=== PATIENT | male | born 1975 | race Caucasian/White ===

== ENCOUNTER → 2021-05-23 10:40 | Outpatient (CLI) | payer OTHER, MEDICAID, SELFPAY ==
--- NOTE | 2021-05-23 10:41 | DI.US.S_ITS ---
PROCEDURE: US PERIPH VENOUS LOW EXTREM RT INDICATIONS: SWELLING X 6 MONTHS TECHNIQUE: Real-time imaging, as well as color and pulse Doppler interrogation, were performed of the lower extremity deep veins from the inguinal ligament to the popliteal fossa. COMPARISON: None. FINDINGS: The common femoral, femoral and popliteal veins are normally compressible, and free of intraluminal thrombus. Color and pulse Doppler demonstrate normal phasic intraluminal flow. There is normal augmentation response to distal compression maneuver. At the area of clinical concern involving the gan and ankle, soft tissue edema can be seen. IMPRESSION: Negative for deep venous thrombosis. Soft tissue edema can be seen involving the area of concern involving the gan and ankle. Dictated by: Mohit Garcia M.D. on 05/23/2021 at 10:32 Approved by: Mohit Garcia M.D. on 05/23/2021 at 10:33
== END ==
PROVIDERS: PCP Family Medicine; Referring Provider Physician Assistant; Visit Provider Physician Assistant
DX: R22.41 Localized swelling, mass and lump, right lower limb (principal); M79.89 Other specified soft tissue disorders
CPT/HCPCS: 93971

== ENCOUNTER 2021-09-23 12:04 | Emergency (ER) | payer OTHER, MEDICAID, SELFPAY ==
[2021-09-23] VITALS (9 sets, daily range): BP systolic 145–179; BP diastolic 76–97; PULSE 73–82; RESP 16–25; TEMP 36.8; O2SAT 92–97; BMI 44.3
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
--- NOTE | 2021-09-23 12:24 | DI.RAD.S_ITS ---
PROCEDURE: XR CHEST 1V INDICATIONS: chest pain TECHNIQUE: One view of the chest was acquired. COMPARISON: [facility], CHEST 2 VIEW, 01/01/2012, 17:47. FINDINGS: Surgical changes and devices: None. Lungs and pleura: Lungs are clear. No pleural effusions or pneumothorax. Mediastinum: Mediastinal contours appear normal. Heart size is normal. Bones and chest wall: No suspicious bony lesions. Overlying soft tissues appear unremarkable. IMPRESSION: No acute cardiopulmonary abnormality. Dictated by: Judah Gordillo M.D. on 09/23/2021 at 12:19 Approved by: Judah Gordillo M.D. on 09/23/2021 at 12:20
[2021-09-23 12:31] LABS: Add Manual Diff / Slide Review NO; Basophils Absolute Auto 100 /uL (0-100); Basophils Percent Auto 0.6 % (0-2); Eosinophils Absolute Auto 300 /uL (0-450); Eosinophils Percent Auto 2.4 % (2-4); Hematocrit 44.8 % (41-53); Hemoglobin 15.4 g/dL (13.5-17.5); Lymphocytes Absolute Auto 3800 /uL (1100-4500); Lymphocytes Percent Auto 34.9 % (25-40); Mean Corpuscular HGB Conc 34.3 % (30-36); Mean Corpuscular Hemoglobin 27.8 PG (26-34); Mean Corpuscular Volume 81.1 fL (80-100); Monocytes Absolute Auto 700 /uL (0-900); Monocytes Percent Auto 6.3 % (3-14); Neutrophils Absolute Auto 6100 /uL (1500-7000); Neutrophils Percent Auto 55.8 % (50-75); Platelet Count 332 X10^3/uL (150-400); Red Blood Cell Count 5.53 X10^6/uL (4.5-5.9); Red Cell Distribution Width 13.6 % (11.6-14.8); White Blood Cell Count 10.9 X10^3/uL (4.5-11.0)
[2021-09-23 12:44] LABS: Alanine Aminotransferase 26 IU/L (<50); Albumin 4.7 g/dL (3.5-5.0); Albumin Globulin Ratio 1.2 (1.0-2.8); Alkaline Phosphatase 58 U/L (38-126); Aspartate Aminotransferase 25 IU/L (17-59); BUN Creatinine Ratio 20.5 (6-22); Bilirubin Total 0.4 mg/dL (0.2-1.3); Blood Urea Nitrogen 16 mg/dL (9-20); Carbon Dioxide 28 mmol/L (22-32); Chloride 103 mmol/L (98-107); Creatine Kinase 84 U/L (55-170); Estimated Glomerular Filt Rate > 60.0 mL/min (>60); Globulin 3.8 g/dL (1.7-4.1); Glucose 125 mg/dL (70-100); HEMOLYSIS < 15 (0-50); Lipase 73 U/L (23-300); Magnesium 2.1 mg/dL (1.6-2.3); Potassium 3.8 mmol/L (3.4-5.1); Sodium 140 mmol/L (137-145); Total Protein 8.5 g/dL (6.3-8.2)
[2021-09-23 12:54] LABS: Troponin I < 0.012 ng/mL (0.01-0.034)
--- NOTE | 2021-09-23 13:16 | DI.US.S_ITS ---
PROCEDURE: US [facility] VENOUS LOW EXTREM RT INDICATIONS: EDEMA TECHNIQUE: Real-time imaging, as well as color and pulse Doppler interrogation, were performed of the lower extremity deep veins from the inguinal ligament to the popliteal fossa. COMPARISON: [facility], [facility] VENOUS LOW EXTREM RT, 05/23/2021, 11:05. FINDINGS: The common femoral, femoral and popliteal veins are normally compressible, and free of intraluminal thrombus. Color and pulse Doppler demonstrate normal phasic intraluminal flow. There is normal augmentation response to distal compression maneuver. IMPRESSION: No right lower extremity DVT. Dictated by: Judah Gordillo M.D. on 09/23/2021 at 15:06 Approved by: Judah Gordillo M.D. on 09/23/2021 at 15:07
[2021-09-23 13:25] LABS: D Dimer < 200 ng/mL (<230)
--- NOTE | 2021-09-23 14:47 | ED.CHESTPAIN ---
HPI - Chest Pain <Kyle Jimenez PA-C - Last Filed: 09/23/21 19:45> General Chief Complaint: Chest Pain Stated Complaint: chest pain Time Seen by Provider: 09/23/21 12:24 Source: patient and EMS Mode of arrival: EMS Limitations: no limitations History of Present Illness HPI narrative: Patient is a 46-year-old male presenting to the emergency department today via ambulance for evaluation of right-sided chest pain. Patient states that his chest pain began today and notes that it seems to be slightly worse with exertion. He also notes that he is been experiencing right leg swelling for the past ?10 months? and his most recent ultrasound of the right lower extremity did not show signs of DVT. He states that his chest pain is occasionally sharp with a burning sensation. He also reports that he does not have regular medical follow-up and does not take any medications daily. He denies fever, chills, cough, shortness of breath, diaphoresis, abdominal pain, dysuria, hematuria, nausea, vomiting, diarrhea, constipation, jaw pain, pain in the upper extremities, chest pain radiating to the back, or any other concerning symptoms. No further concerns were voiced at this time. Related Data Home Medications Medication Instructions Recorded Confirmed No Known Home Medications 05/23/21 05/23/21 Allergies Allergy/AdvReac Type Severity Reaction Status Date / Time amoxicillin Allergy Severe Anaphylaxis Verified 05/23/21 07:13 azithromycin [AZITHROMYCIN] Allergy Severe SWELLING Unverified 05/23/21 07:13 OF THROAT morphine [MORPHINE] Allergy Mild UNKNOWN Unverified 05/23/21 07:13 Review of Systems <Kyle Jimenez PA-C - Last Filed: 09/23/21 19:45> Constitutional Constitutional: Denies chills, Denies fatigue, Denies fever(s), Denies frequent falls, Denies lethargy and Denies weakness Eyes Eyes: Denies loss of vision ENT Ears, Nose, Mouth, and Throat: Denies dizziness and Denies neck pain Cardiovascular Cardiovascular: Reports chest pain, Denies irregular heart rhythm, Denies lightheadedness, Denies palpitations, Denies dyspnea, Denies dyspnea on exertion and Denies orthopnea Respiratory Respiratory: Denies cough, Denies dyspnea, Denies dyspnea on exertion and Denies wheezing Gastrointestinal Gastrointestinal: Denies abdominal pain, Denies change in bowel habits, Denies diarrhea, Denies nausea and Denies vomiting Genitourinary Genitourinary: Denies hematuria, Denies flank pain, Denies urinary incontinence and Denies urinary urgency Musculoskeletal Musculoskeletal: Denies back pain, Denies muscle weakness, Denies neck pain, Denies numbness, Denies tingling and Reports other (Right lower extremity swelling) Integumentary/Breasts Skin/Breast: Denies pruritus, Denies erythema, Denies rash and Denies wounds Neurologic Neurologic: Denies behavioral changes, Denies confusion, Denies dizziness, Denies frequent falls, Denies loss of vision, Denies numbness, Denies tingling and Denies weakness Psychiatric Psychiatric: Denies behavioral changes and Denies confusion Endocrine Endocrine: Denies fatigue and Denies palpitations Allergic/Immunologic Allergic/Immunologic: Denies wheezing Patient History <Kyel Jimenez PA-C - Last Filed: 09/23/21 19:45> Medical History Hearing loss Right shoulder pain Family History Father No problems noted. Mother Cancer Sister Dystonia Mental health problem Social History Smoking Status: Former smoker Smoking Status: Former smoker alcohol intake frequency: 0-2 drinks per day Substance Use Type: marijuana Exam <Kyle Jimenez PA-C - Last Filed: 09/23/21 19:45> Narrative Exam Narrative: GENERAL: 46 year old patient appears stated age. Well-developed patient, in mild distress. Large body habitus. HEAD: Atraumatic. Normocephalic. EYES: Pupils equal round and reactive. Extraocular motions intact. No scleral icterus. No injection or drainage. ENT: Nose without bleeding, purulent drainage. Throat without erythema, tonsillar hypertrophy or exudate. Airway patent. NECK: Trachea midline. Non tender CARDIOVASCULAR: Regular rate and rhythm without murmurs, gallops, or rubs. RESPIRATORY: Clear to auscultation. Breath sounds equal bilaterally. No wheezes, rales, or rhonchi. GASTROINTESTINAL: Abdomen soft, non-tender, nondistended. EXTREMITIES: No edema or joint tenderness. BACK: Nontender without deformity or crepitance. No flank tenderness. NEURO: AOx3. SKIN: No rash or erythema of visible areas Initial Vital Signs Initial Vital Signs: Vital Signs Temperature 98.2 F 09/23/21 12:16 Pulse Rate 81 09/23/21 12:16 Respiratory Rate 18 09/23/21 12:16 Blood Pressure 179/80 H 09/23/21 12:16 Pulse Oximetry 92 09/23/21 12:16 Course <Kyle Jimenez PA-C - Last Filed: 09/23/21 19:45> Course Course Narrative: CBC, CMP, lipase, magnesium, troponin with repeat troponin, D-dimer, EKG, chest x-ray, right lower extremity ultrasound obtained. Patient's vital signs remained stable throughout his stay in the emergency department with his oxygen saturations staying above 93%. Orders Ordered: ED Orders 09/23/21 12:13 Complete Blood Count AUTO DIFF Stat Comprehensive Metabolic Panel Stat D Dimer Stat Lipase Stat Magnesium Stat Troponin & CK Cardiac Panel Stat 09/23/21 12:24 XR chest 1V Stat EKG-12 Lead Stat 09/23/21 13:16 US periph venous low extrem rt Stat 09/23/21 14:23 Trop I [Troponin I] Stat Vital Signs Vital signs: Vital Signs - 8 hr 09/23/21 12:16 09/23/21 13:43 09/23/21 13:44 Temperature 98.2 F Pulse Rate 81 77 76 Respiratory Rate 18 20 25 H Blood Pressure 179/80 H 151/97 H Pulse Oximetry 92 95 95 09/23/21 14:00 09/23/21 14:05 09/23/21 14:30 Temperature Pulse Rate 74 73 73 Respiratory Rate 16 21 21 Blood Pressure 145/76 H Pulse Oximetry 96 95 96 09/23/21 15:00 09/23/21 15:30 09/23/21 16:00 Temperature Pulse Rate 73 82 80 Respiratory Rate 23 16 17 Blood Pressure Pulse Oximetry 94 97 97 MDM - Chest Pain <Kyle Jimenez PA-C - Last Filed: 09/23/21 19:45> Lab Data Result diagrams: 09/23/21 12:13 09/23/21 12:13 Labs: Lab Results 09/23/21 09/23/21 09/23/21 Range/Units 12:13 12:13 12:13 WBC 10.9 (4.5-11.0) X10^3/uL RBC 5.53 (4.5-5.9) X10^6/uL Hgb 15.4 (13.5-17.5) g/dL Hct 44.8 (41-53) % MCV 81.1 (80-100) fL MCH 27.8 (26-34) PG MCHC 34.3 (30-36) % RDW 13.6 (11.6-14.8) % Plt Count 332 (150-400) X10^3/uL Neut % (Auto) 55.8 (50-75) % Lymph % (Auto) 34.9 (25-40) % [place] % (Auto) 6.3 (3-14) % Eos % (Auto) 2.4 (2-4) % Baso % (Auto) 0.6 (0-2) % Neut # (Auto) 6100 (7211-9757) /uL Lymph # (Auto) 3800 (1746-9630) /uL [place] # (Auto) 700 (0-900) /uL Eos # (Auto) 300 (0-450) /uL Baso # (Auto) 100 (0-100) /uL D-Dimer < 200 (<230) ng/mL Sodium 140 (137-145) mmol/L Potassium 3.8 (3.4-5.1) mmol/L Chloride 103 (98-107) mmol/L Carbon Dioxide 28 (22-32) mmol/L BUN 16 (9-20) mg/dL Creatinine 0.78 (0.66-1.25) mg/dL Estimated GFR > 60.0 (>60) mL/min BUN/Creatinine Ratio 20.5 (6-22) Glucose 125 H (70-100) mg/dL Calcium 9.0 (8.4-10.2) mg/dL Magnesium 2.1 (1.6-2.3) mg/dL Total Bilirubin 0.4 (0.2-1.3) mg/dL AST 25 (17-59) IU/L ALT 26 (<50) IU/L Alkaline Phosphatase 58 (38-126) U/L Total Creatine Kinase 84 (55-170) U/L CK-MB (CK-2) TNP CK-MB (CK-2) Rel Index TNP Troponin I < 0.012 (0.01-0.034) ng/mL Total Protein 8.5 H (6.3-8.2) g/dL Albumin 4.7 (3.5-5.0) g/dL Globulin 3.8 (1.7-4.1) g/dL Albumin/Globulin Ratio 1.2 (1.0-2.8) Lipase 73 (23-300) U/L / Range/Units 14:23 WBC (4.5-11.0) X10^3/uL RBC (4.5-5.9) X10^6/uL Hgb (13.5-17.5) g/dL Hct (41-53) % MCV (80-100) fL MCH (26-34) PG MCHC (30-36) % RDW (11.6-14.8) % Plt Count (150-400) X10^3/uL Neut % (Auto) (50-75) % Lymph % (Auto) (25-40) % [place] % (Auto) (3-14) % Eos % (Auto) (2-4) % Baso % (Auto) (0-2) % Neut # (Auto) (9066-0792) /uL Lymph # (Auto) (0779-3576) /uL [place] # (Auto) (0-900) /uL Eos # (Auto) (0-450) /uL Baso # (Auto) (0-100) /uL D-Dimer (<230) ng/mL Sodium (137-145) mmol/L Potassium (3.4-5.1) mmol/L Chloride (98-107) mmol/L Carbon Dioxide (22-32) mmol/L BUN (9-20) mg/dL Creatinine (0.66-1.25) mg/dL Estimated GFR (>60) mL/min BUN/Creatinine Ratio (6-22) Glucose (70-100) mg/dL Calcium (8.4-10.2) mg/dL Magnesium (1.6-2.3) mg/dL Total Bilirubin (0.2-1.3) mg/dL AST (17-59) IU/L ALT (<50) IU/L Alkaline Phosphatase (38-126) U/L Total Creatine Kinase (55-170) U/L CK-MB (CK-2) CK-MB (CK-2) Rel Index Troponin I < 0.012 (0.01-0.034) ng/mL Total Protein (6.3-8.2) g/dL Albumin (3.5-5.0) g/dL Globulin (1.7-4.1) g/dL Albumin/Globulin Ratio (1.0-2.8) Lipase (23-300) U/L Urine Dip Bedside Urine Glucose Negative Bedside Urine Bilirubin - Negative Bedside Urine Ketone - Negative Urine Specific [place] 1.015 Bedside Urine Occult Blood - Negative Bedside Urine pH 7 Bedside Urine Protein - Negative Bedside Urine Urobilinogen - Negative Bedside Urine Nitrite - Negative Bedside Urine Leukocytes - Negative Esterase Imaging Data US - DVT: Radiologist's Impression: PROCEDURE:? US PERIPH VENOUS LOW EXTREM RT ? INDICATIONS:? EDEMA ? TECHNIQUE:? Real-time imaging, as well as color and pulse Doppler interrogation, were performed of the lower extremity deep veins from the inguinal ligament to the popliteal fossa.? ? COMPARISON:? [facility], PERIP VENOUS LOW EXTREM RT, 05/23/2021, 11:05. ? FINDINGS:? The common femoral, femoral and popliteal veins are normally compressible, and free of intraluminal thrombus.? Color and pulse Doppler demonstrate normal phasic intraluminal flow.? There is normal augmentation response to distal compression maneuver. ? ? IMPRESSION:? No right lower extremity DVT. ? ? Dictated by: Judah Gordillo M.D. on 09/23/2021 at 15:06 ? ? Approved by: Judah Gordillo M.D. on 09/23/2021 at 15:07 ? Chest x-ray: Radiologist's Impression: PROCEDURE:? XR CHEST 1V ? INDICATIONS:? chest pain ? TECHNIQUE:? One view of the chest was acquired.? ? COMPARISON:? [facility], CHEST 2 VIEW, 01/01/2012, 17:47. ? FINDINGS:? ? Surgical changes and devices:? None.? ? Lungs and pleura:? Lungs are clear.? No pleural effusions or pneumothorax.? ? Mediastinum:? Mediastinal contours appear normal.? Heart size is normal.? ? Bones and chest wall:? No suspicious bony lesions.? Overlying soft tissues appear unremarkable.? ? IMPRESSION:? No acute cardiopulmonary abnormality. ? ? ? Dictated by: Judah Gordillo M.D. on 09/23/2021 at 12:19 ? ? Approved by: Judah Gordillo M.D. on 09/23/2021 at 12:20? MDM Narrative Medical decision making narrative: Differential diagnosis to consider but not limited to acute coronary syndrome versus myocardial infarction versus pulmonary embolism versus deep vein thrombosis versus musculoskeletal chest pain versus pneumonia. Discussed lab studies and imaging with patient informed him that no acute abnormality was identified today. Discussed that the likelihood of experiencing a heart attack with 2 normal troponins or a pulmonary embolism with a normal D-dimer was not high. I encouraged the patient to establish regular care with his primary care provider for further evaluation and management of his symptoms. He expresses understanding and agrees to plan. He states that this time that he is comfortable being discharged home and is stable for discharge. I discussed very strict return precautions with the patient prior to discharge. He states he will return to the emergency department if he feels that his symptoms return or worsen. Discharge Plan Departure Patient Disposition: Home Clinical Impression: Chest pain, Right leg swelling Activity Restrictions/Additional Instructions: *You have been diagnosed with chest pain, right leg swelling *What to do: *Please continue to take your regular medications as directed. [ ] New medication prescriptions sent to your pharmacy: [ ] [ ] New medication written as a paper prescription [X] No new medications given You were evaluated in the emergency department today for chest pain and right lower extremity swelling. Ultrasound imaging of the right lower extremity did not show signs of deep vein thrombosis (blood clot). Additionally, lab studies and chest x-ray imaging obtained in the emergency department today did not show signs of acute cardiopulmonary abnormality. I recommend that you follow-up with your primary care provider within the next 2-3 days for further evaluation. Please do not hesitate to return to the emergency department if you experience worsening chest pain, shortness of breath, unexplained sweating, chest pain radiating to the back, loss of consciousness, increased heart rate, or any other concerning symptoms. *Please follow up with your primary care provider in 2-3 days, call for an appointment. Let them know you were seen in the Emergency Department and that we ask that you be seen in follow up. We will electronically transmit a record of today's note if your PCP is in our system *If you do not have a primary care provider please contact the [facility] Resource line at [phone]. They will ask some questions about your medical history and help get you set up with a doctor in the community. *Return to Emergency Department if you should have any new, worsening or concerning symptoms, such as fever greater than 101 F, shaking chills, worsening pain, persistent vomiting or other bothersome symptoms. Prescriptions: No Action No Known Home Medications 0RF Referrals: Toni Masters DO [Primary Care Provider] -
[2021-09-23 14:51] LABS: Troponin I < 0.012 ng/mL (0.01-0.034)
== END 2021-09-23 16:38 | disposition home or self-care (01) ==
PROVIDERS: Emergency Medicine; Emergency Provider Physician Assistant; PCP Family Medicine
DX: R07.9 Chest pain, unspecified (principal); M79.89 Other specified soft tissue disorders
CPT/HCPCS: 71045; 80053; 81003; 82550; 83690; 83735; 84484; 85025; 85379; 93005; 93010; 93971; 99284

== ENCOUNTER 2022-03-11 08:15 | Outpatient (RCR) | payer OTHER, MEDICAID, SELFPAY ==
--- NOTE | 2021-12-20 16:00 | PT.OIE ---
Current Diagnoses Other chronic pain (12/20/21) Pain in right shoulder (12/20/21) Pain in right ankle and joints of right foot (12/20/21) Myalgia, other site (12/20/21) Past Medical History (Last Updated 10/16/21 @ 08:45 by Toni Masters DO) Chronic pain of right ankle Hearing loss Left buttock pain Right shoulder pain Visit Care Team Role Provider Type Toni Masters DO Attending Provider Physician Family Provider Primary Care Provider Referring Provider Specialty: [facility] Address: [address] [place] [address] Email: Physical Therapy Initial Evaluation PT-OP-A Visit Information Start: 12/19/21 16:19 Freq: Status: Active Protocol: Document 12/20/21 13:44 [facility]AK (Rec: 12/20/21 14:36 SAK [id number]) Out-Patient Physical Therapy Visit Information Visit Information Visit Type Initial Evaluation Visit Start Time 13:45 Visit Stop Time 14:40 Total Visit Minutes 55 Visit Number 08/06 Evaluation Information Evaluation Date 12/20/21 PT-OP-B Current Condition Start: 12/19/21 16:19 Freq: Status: Active Protocol: Document 12/20/21 13:44 SAK (Rec: 12/20/21 14:36 SAK [id number]) Current Condition History of Current Condition Onset Date 12 years ago shoulder Current Complaints right shoulder dysfunction, left hip pain History of Current Condition Thinks injured right shoulder while removing amina, jamming his shoulder. 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 If not doing anything really physical sometimes it feels and works fine. Patient is left handed. Was going to come for PT, then Covid happened. History of 3 ankle sprains with swelling right LE. 1 month ago reports onset of left hip pain, possibly due to compensation with his walking . Reports sharp, stabbing, and burning pain left hip/low back, feels like it is going to cut off his legs, almost causing him to fall. States he is heavier than he ever has been. Prior Treatments and Tests No x-ray or MRI yet Prior Functional Status Baseline Function- ADL's Independent Baseline Function- Mobility Independent Baseline Function- Gait no difficulty Baseline Function- Work/School no difficulty Current Functional Impairments (Reported) Functional Limitations- ADL's Hip pain interrupts sleep, pain with bending, lifting, walking, sharp stabbing pain with sit to stand, pain with standing and holding grandkids : fire down his thighs. If sleeps wrong on right UE can't use arm Functional Limitations- Mobility/Gait limps Functional Limitations- Recreation/ playing with grandkids painful Hobbies Personal Factors Other Personal Factors That May Effect obesity; patient is 11/19, 280 Therapy/Recovery lbs PT-OP-C Subjective Start: 12/19/21 16:19 Freq: Status: Active Protocol: Document 12/20/21 13:44 [facility] (Rec: 12/23/21 08:55 [facility] [id number]) Patient Questionnaires FAOS Foot and Ankle Survey FAOS Score 60% Lower Extremity Functional Scale LEFS Score 62 Quick Dash- Upper Extremity Quick Dash UE Score 20 OP-PT Pain Assessment Pain Assessment Grid Paper Pain Assessment Grid Completed Yes Location right shoulder, left SI and lateral hip Intensity 7 Description Burning,Sharp,Stabbing Frequency Frequent Radiating Location bilateral thighs Pain Aggravating Factors Changing Position,ADL's, Activity,Standing,Walking Pain Alleviating Factors Inactivity Pain Behaviors Pain Behaviors Facial Grimacing,Guarding, Restlessness,Wincing PT-OP-G Mobility & Gait Start: 12/19/21 16:19 Freq: Status: Active Protocol: Document 12/20/21 13:44 [facility] (Rec: 12/23/21 08:55 [facility] [id number]) OP Mobility Evaluation Transfers Sit to Stand painful Functional Movements Squats painful OP Gait Assessment Gait Gait Assistance Required: Independent Assistive Devices Assistive Device None Gait Deviations General Gait Pattern Wide Based Gait Factors Limiting Gait Function Factors Limiting Gait Function Decreased Strength,Pain Comments Gait Comments excess ER bilateral LE's left greater than right PT-OP-H Neuro Start: 12/19/21 16:19 Freq: Status: Active Protocol: Document 12/20/21 13:44 [facility] (Rec: 12/23/21 08:55 [facility] [id number]) Sensation Evaluation Gross Sensation Gross Sensation Right UE Impaired Sensation Description Paresthesia Comments Summary Comments Intact to LT bilateral UE's and LE's PT-OP-J Posture/Palpation/Skin Start: 12/19/21 16:19 Freq: Status: Active Protocol: Document 12/20/21 13:44 [facility] (Rec: 12/23/21 08:55 [facility] [id number]) Posture Evaluation Position Standing Head/C-Spine Posture Forward Head T-Spine Posture Increased Kyphosis L-Spine Posture Increased Lordosis Shoulder Posture (L) Rounded,(R) Rounded Scapula Posture (L) Protracted,(R) Protracted Arm Posture (L) Internally Rotated,(R) Internally Rotated Weight Distribution Weight Shifted Right Palpation Assessment Location left piriformis Palpation Findings Tenderness left greater trochanter Palpation Findings Tenderness left SI Palpation Findings Tenderness right shoulder Palpation Findings None/Normal PT-OP-K Range of Motion Start: 12/19/21 16:19 Freq: Status: Active Protocol: Document 12/20/21 13:44 [facility] (Rec: 12/23/21 08:55 [facility] [id number]) Cervical Spine Range of Motion Cervical Spine Active Comments WNL Lumbar Spine Range of Motion Lumbar Spine Active Flexion 25 Extension 15 Rotation Left 20 Rotation Right 20 Lateral Flexion Left 15 Lateral Flexion Right 15 ROM Limitations Pain Comments reported pain with all motions Shoulder Goniometric Range of Motion Shoulder Right Shoulder ROM WFL Yes Flexion 180 Extension 95 Abduction 180 External Rotation at 45 degrees 95 Abduction Internal Rotation Behind Back (text) T10 Left Shoulder ROM WFL Yes Flexion 180 Extension 40 Abduction 180 External Rotation at 90 degrees 85 Abduction Internal Rotation Behind Back (text) T10 Hip Goniometric Range of Motion Hip Left Flexion w/Knee Flexed 105 Straight Leg Raise 50 Extension 5 Abduction 25 Internal Rotation 10 External Rotation 30 Right Flexion w/Knee Flexed 100 Straight Leg Raise 65 Extension 5 Abduction 25 Internal Rotation 10 External Rotation 35 Hip ROM Limitations Hip ROM Limitations Soft Tissue Tightness,Pain PT-OP-M Strength Start: 12/19/21 16:19 Freq: Status: Active Protocol: Document 12/20/21 13:44 [facility] (Rec: 12/23/21 08:55 [facility] [id number]) Shoulder Strength Shoulder Manual Muscle Testing Right Flexion 4+ Good+ Extension 4+ Good+ Abduction (C5) 4+ Good+ External Rotation 4 Good Internal Rotation 4 Good Left Flexion 5 Normal Extension 4+ Good+ Abduction (C5) 5 Normal External Rotation 4+ Good+ Internal Rotation 4+ Good+ Hip Strength Hip Manual Muscle Testing Right Flexion (L2) 4 Good Extension (S1) 4 Good Abduction 4 Good External Rotation 4 Good Internal Rotation 4 Good Left Flexion (L2) 4- Good- Extension (S1) 4- Good- Abduction 4 Good External Rotation 4- Good- Internal Rotation 4- Good- Comments reported pain with all resisted motions Knee Strength Knee Manual Muscle Testing Right Flexion (S2) 5 Normal Extension (L3) 5 Normal Left Flexion (S2) 5 Normal Extension (L3) 5 Normal Ankle/Foot Strength Ankle and Foot Manual Muscle Testing Right Dorsiflexion (L4) 4+ Good+ Plantarflexion (S1) 4+ Good+ Left Dorsiflexion (L4) 5 Normal Plantarflexion (S1) 5 Normal PT-OP-Q Treatments Start: 12/19/21 16:19 Freq: Status: Active Protocol: Document 12/20/21 13:44 [facility] (Rec: 12/20/21 15:37 [facility] [id number]) Self-Care/Home Management Treatment Education Patient Education Home Exercise Program,Pain Management,Posture Other Education bed positioning; issued handout for supine and sidelying with pillow support after education. Patient advised not to sleep on his right side/arm. Consider use of body pillow. HEP: TrA, ball squeeze, gluteal set. PT-OP-R Modalities Start: 12/19/21 16:19 Freq: Status: Active Protocol: Document 12/20/21 13:44 [facility] (Rec: 12/20/21 15:37 [facility] [id number]) Hot Pack/Cold Pack Treatment Cold Pack Location lumbar spine and SI Patient Position Hooklying Treatment Duration (minutes) 10 Patient Tolerance Good Comments strap around distal thighs for LE support in neutral position PT-OP-T Assessment and Plan Start: 12/19/21 16:19 Freq: Status: Active Protocol: Document 12/20/21 13:44 [facility] (Rec: 12/23/21 08:55 [facility] [id number]) Physical Therapy Assessment Rehab Potential Rehabilitation Potential Good Evaluation Complexity Number of Personal Factors/Comorbidities 1-2 Number of Body Systems Impaired 3 Clinical Presentation at Evaluation Evolving Impairments Impairments Activity Tolerance,Strength Goals Four Impairment Quickdash UE disability index score 20% Skilled Nursing Goal (LTG) Improve Quickdash score to no greater than 5% as measure of improved UE function LTG Duration 03/23/22 Three Impairment lower extremity functional ( LEFS) scale 60% Skilled Nursing Goal (LTG) Improve LEFS score to at least 80% as measure of improved LE function LTG Duration 03/23/22 Two Impairment right shoulder dysfunction Impairment numbness and inability to use for prolonged period if sleeps on right side with pain as high as 7/10. Short Term Goal (STG) Patient to be able to modify his sleep patterns to not sleep on right side, and will be instructed in HEP for purposes of strengthening and stabilization. Skilled Nursing Goal (LTG) Patient to be independent with HEP for right shoulder strengthening and stabilization and report improved right shoulder function with minimal to no incidences of right shoulder pain and inability to use. LTG Duration 03/23/22 One Impairment pain lumbar spine left SI and hip as high as 7/10 Short Term Goal (STG) Decrease pain to no greater than 4/10 with 50% reduction in radicular symptoms STG Duration 01/25/22 Skilled Nursing Goal (LTG) Patient to report pain no greater than 2/10 with all usual activities including standing and holding his grandkids and moving from sit to stand LTG Duration 03/23/22 Assessment Summary Assessment Patient presents to PT with function-limiting pain in his low back, left hip and SI joint region with radicular symptoms which appear to be related to reported ankle sprains x 3 with compensatory movement patterns with weight gain and decreased activity level contributory. Signs and symptoms are consistent with SI joint involvement and patient has asymmetrical ROM and strength at his hips. Patient also c/o right shoulder dysfunction potentially due to injury sustained 12 years ago when removing shingles off a roof; major c/o is numbness and inability to use for prolonged periods if he sleeps on the right side. He has mild strength deficits in the right arm and excessive joint mobility. Objective evaluation was somewhat limited today due to extensive patient history and high level of irritability of left SI joint. Feel this patient will benefit from skilled physical therapy for shoulder strengthening and stabilization, flexibility and strength training and core stabilization with manual therapy and modalities as indicated for left hip dysfunction. Patient was advised not to sleep on his right side, and was instructed in a few simple isometric exercises for his hips and core. Physical Therapy Plan Frequency and Duration Frequency of Treatment 2x/Week Duration of Treatment 12 weeks Plan of Care Start Date 12/20/21 Plan of Care End Date 03/23/22 Therapeutic Interventions Therapeutic Interventions Aquatic Therapy,Gait Training, Home Exercise Program,Manual Therapy,Neuromuscular Re- education,Patient/Caregiver Education,Self-Care/Home Management,Soft Tissue Mobilization,Taping, Therapeutic Activities, Therapeutic Exercises Modalities Cold Pack/Ice Massage,Electric Stimulation,Hot Packs, Traction- Mechanical, Ultrasound Next Visit Focus/Plan Next Note Type Treatment Note Next Visit Plan Start with gentle Sci-Fit as tolerated , review TrA activation, ball squeeze, gluteal set. Add shoulder stabilization ex, possible pelvic realignment exercises. Evaluation of right ankle . Modalities and manual therapy as needed for pain
--- NOTE | 2021-12-20 16:00 | PT.OPPOC ---
Physical, Occupational & Speech Therapy At [facility] Current Diagnoses Other chronic pain (12/20/21) Pain in right shoulder (12/20/21) Pain in right ankle and joints of right foot (12/20/21) Myalgia, other site (12/20/21) Visit Care Team Role Provider Type Toni Masters DO Attending Provider Physician Family Provider Primary Care Provider Referring Provider Specialty: Family Practice Address: [address] [place] [address], [facility] Email: Plan Of Care PT-OP-T Assessment and Plan Start: 12/19/21 16:19 Freq: Status: Active Protocol: Document 12/20/21 13:44 [facility] (Rec: 12/23/21 08:55 [facility] [id number]) Physical Therapy Assessment Rehab Potential Rehabilitation Potential Good Evaluation Complexity Number of Personal Factors/Comorbidities 1-2 Number of Body Systems Impaired 3 Clinical Presentation at Evaluation Evolving Impairments Impairments Activity Tolerance,Strength Goals Four Impairment Quickdash UE disability index score 20% [employer]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 Short Term Goal (STG) Patient to be able to modify his sleep patterns to not sleep on right side, and will be instructed in HEP for purposes of strengthening and stabilization. Prison Goal (LTG) Patient to be independent with HEP for right shoulder strengthening and stabilization and report improved right shoulder function with minimal to no incidences of right shoulder pain and inability to use. LTG Duration 03/23/22 One Impairment pain lumbar spine left SI and hip as high as 7/10 Short Term Goal (STG) Decrease pain to no greater than 4/10 with 50% reduction in radicular symptoms STG Duration 01/25/22 Prison Goal (LTG) Patient to report pain no greater than 2/10 with all usual activities including standing and holding his grandkids and moving from sit to stand LTG Duration 03/23/22 Assessment Summary Assessment Patient presents to PT with function-limiting pain in his low back, left hip and SI joint region with radicular symptoms which appear to be related to reported ankle sprains x 3 with compensatory movement patterns with weight gain and decreased activity level contributory. Signs and symptoms are consistent with SI joint involvement and patient has asymmetrical ROM and strength at his hips. Patient also c/o right shoulder dysfunction potentially due to injury sustained 12 years ago when removing shingles off a roof; major c/o is numbness and inability to use for prolonged periods if he sleeps on the right side. He has mild strength deficits in the right arm and excessive joint mobility. Objective evaluation was somewhat limited today due to extensive patient history and high level of irritability of left SI joint. Feel this patient will benefit from skilled physical therapy for shoulder strengthening and stabilization, flexibility and strength training and core stabilization with manual therapy and modalities as indicated for left hip dysfunction. Patient was advised not to sleep on his right side, and was instructed in a few simple isometric exercises for his hips and core. Physical Therapy Plan Frequency and Duration Frequency of Treatment 2x/Week Duration of Treatment 12 weeks Plan of Care Start Date 12/20/21 Plan of Care End Date 03/23/22 Therapeutic Interventions Therapeutic Interventions Aquatic Therapy,Gait Training, Home Exercise Program,Manual Therapy,Neuromuscular Re- education,Patient/Caregiver Education,Self-Care/Home Management,Soft Tissue Mobilization,Taping, Therapeutic Activities, Therapeutic Exercises Modalities Cold Pack/Ice Massage,Electric Stimulation,Hot Packs, Traction- Mechanical, Ultrasound Next Visit Focus/Plan Next Note Type Treatment Note Next Visit Plan Start with gentle Sci-Fit as tolerated , review TrA activation, ball squeeze, gluteal set. Add shoulder stabilization ex, possible pelvic realignment exercises. Evaluation of right ankle . Modalities and manual therapy as needed for pain Plan of Care Dates Plan of Care Start Date 12/20/21 Plan of Care End Date 03/23/22 Electronically Signed by: Danii Eduardo, PT 12/23/21 0859 If you are in agreement with this Plan of Care, please return a signed and dated copy. I have reviewed this Plan of Care and certify that the skilled therapy services above are required to meet the patient?s needs. Physician Signature Date Printed Name and Credentials Clinical Instructor Signature Printed Name and Credentials
--- NOTE | 2021-12-25 10:04 | PT.OTN ---
Current Diagnoses Other chronic pain (12/25/21) Pain in right shoulder (12/25/21) Pain in right ankle and joints of right foot (12/25/21) Myalgia, other site (12/25/21) Physical Therapy Treatment Note PT-OP-A Visit Information Start: 12/19/21 16:19 Freq: Status: Active Protocol: Document 12/25/21 08:50 NBM (Rec: 12/25/21 10:04 NBM [id number]) Out-Patient Physical Therapy Visit Information Visit Information Visit Type Treatment Note Visit Start Time 08:57 Visit Stop Time 09:43 Total Visit Minutes 46 Visit Number 09/06 Number of DIETARY MANAGER Visits 1 PT-OP-B Current Condition Start: 12/19/21 16:19 Freq: Status: Active Protocol: Document 12/20/21 13:44 SAK (Rec: 12/20/21 14:36 SAK [id number]) Current Condition History of Current Condition Onset Date 12 years ago shoulder Current Complaints right shoulder dysfunction, left hip pain History of Current Condition Thinks injured right shoulder while removing amina, jamming his shoulder. 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 If not doing anything really physical sometimes it feels and works fine. Patient is left handed. Was going to come for PT, then Covid happened. History of 3 ankle sprains with swelling right LE. 1 month ago reports onset of left hip pain, possibly due to compensation with his walking . Reports sharp, stabbing, and burning pain left hip/low back, feels like it is going to cut off his legs, almost causing him to fall. States he is heavier than he ever has been. Prior Treatments and Tests No x-ray or MRI yet Prior Functional Status Baseline Function- ADL's Independent Baseline Function- Mobility Independent Baseline Function- Gait no difficulty Baseline Function- Work/School no difficulty Current Functional Impairments (Reported) Functional Limitations- ADL's Hip pain interrupts sleep, pain with bending, lifting, walking, sharp stabbing pain with sit to stand, pain with standing and holding grandkids : fire down his thighs. If sleeps wrong on right UE can't use arm Functional Limitations- Mobility/Gait limps Functional Limitations- Recreation/ playing with grandkids painful Hobbies Personal Factors Other Personal Factors That May Effect obesity; patient is [birth year]19, 89 Therapy/Recovery lbs PT-OP-C Subjective Start: 12/19/21 16:19 Freq: Status: Active Protocol: Document 12/25/21 08:50 NBM (Rec: 12/25/21 10:04 NBM [id number]) OP-PT Subjective Patient Comments Patient Comments Pt reports he feels better since his first PT appointment and has been compliant with his HEP. He feels a twinge today in his lower back and hip on the left side. He has been sleeping on his left focused on R shoulder back with pillows for side support and between his legs and thinks this has helped. PT-OP-G Mobility & Gait Start: 12/19/21 16:19 Freq: Status: Active Protocol: Document 12/20/21 13:44 SAK (Rec: 12/23/21 08:55 [facility] [id number]) OP Mobility Evaluation Transfers Sit to Stand painful Functional Movements Squats painful OP Gait Assessment Gait Gait Assistance Required: Independent Assistive Devices Assistive Device None Gait Deviations General Gait Pattern Wide Based Gait Factors Limiting Gait Function Factors Limiting Gait Function Decreased Strength,Pain Comments Gait Comments excess ER bilateral LE's left greater than right PT-OP-H Neuro Start: 12/19/21 16:19 Freq: Status: Active Protocol: Document 12/20/21 13:44 SAK (Rec: 12/23/21 08:55 [facility] [id number]) Sensation Evaluation Gross Sensation Gross Sensation Right UE Impaired Sensation Description Paresthesia Comments Summary Comments Intact to LT bilateral UE's and LE's PT-OP-J Posture/Palpation/Skin Start: 12/19/21 16:19 Freq: Status: Active Protocol: Document 12/20/21 13:44 SAK (Rec: 12/23/21 08:55 [facility] [id number]) Posture Evaluation Position Standing Head/C-Spine Posture Forward Head T-Spine Posture Increased Kyphosis L-Spine Posture Increased Lordosis Shoulder Posture (L) Rounded,(R) Rounded Scapula Posture (L) Protracted,(R) Protracted Arm Posture (L) Internally Rotated,(R) Internally Rotated Weight Distribution Weight Shifted Right Palpation Assessment Location left piriformis Palpation Findings Tenderness left greater trochanter Palpation Findings Tenderness left SI Palpation Findings Tenderness right shoulder Palpation Findings None/Normal PT-OP-K Range of Motion Start: 12/19/21 16:19 Freq: Status: Active Protocol: Document 12/20/21 13:44 [facility] (Rec: 12/23/21 08:55 [facility] [id number]) Cervical Spine Range of Motion Cervical Spine Active Comments WNL Lumbar Spine Range of Motion Lumbar Spine Active Flexion 25 Extension 15 Rotation Left 20 Rotation Right 20 Lateral Flexion Left 15 Lateral Flexion Right 15 ROM Limitations Pain Comments reported pain with all motions Shoulder Goniometric Range of Motion Shoulder Right Shoulder ROM WFL Yes Flexion 180 Extension 95 Abduction 180 External Rotation at 45 degrees 95 Abduction Internal Rotation Behind Back (text) T10 Left Shoulder ROM WFL Yes Flexion 180 Extension 40 Abduction 180 External Rotation at 90 degrees 85 Abduction Internal Rotation Behind Back (text) T10 Hip Goniometric Range of Motion Hip Left Flexion w/Knee Flexed 105 Straight Leg Raise 50 Extension 5 Abduction 25 Internal Rotation 10 External Rotation 30 Right Flexion w/Knee Flexed 100 Straight Leg Raise 65 Extension 5 Abduction 25 Internal Rotation 10 External Rotation 35 Hip ROM Limitations Hip ROM Limitations Soft Tissue Tightness,Pain PT-OP-M Strength Start: 12/19/21 16:19 Freq: Status: Active Protocol: Document 12/20/21 13:44 [facility] (Rec: 12/23/21 08:55 [facility] [id number]) Shoulder Strength Shoulder Manual Muscle Testing Right Flexion 4+ Good+ Extension 4+ Good+ Abduction (C5) 4+ Good+ External Rotation 4 Good Internal Rotation 4 Good Left Flexion 5 Normal Extension 4+ Good+ Abduction (C5) 5 Normal External Rotation 4+ Good+ Internal Rotation 4+ Good+ Hip Strength Hip Manual Muscle Testing Right Flexion (L2) 4 Good Extension (S1) 4 Good Abduction 4 Good External Rotation 4 Good Internal Rotation 4 Good Left Flexion (L2) 4- Good- Extension (S1) 4- Good- Abduction 4 Good External Rotation 4- Good- Internal Rotation 4- Good- Comments reported pain with all resisted motions Knee Strength Knee Manual Muscle Testing Right Flexion (S2) 5 Normal Extension (L3) 5 Normal Left Flexion (S2) 5 Normal Extension (L3) 5 Normal Ankle/Foot Strength Ankle and Foot Manual Muscle Testing Right Dorsiflexion (L4) 4+ Good+ Plantarflexion (S1) 4+ Good+ Left Dorsiflexion (L4) 5 Normal Plantarflexion (S1) 5 Normal PT-OP-Q Treatments Start: 12/19/21 16:19 Freq: Status: Active Protocol: Document 12/25/21 08:50 NBM (Rec: 12/25/21 10:04 NBM [id number]) Cardio Equipment Recumbent Stepper (Sci-Fit) Duration (Minutes) 6 Resistance 2.5 Seat Position 11 Therapeutic Exercises Supine Exercises BKFO Supine Exercise Name alternating Bent Knee Fall Out Side bilateral Reps/Minutes 1 x 10 rep ea Comments TrA focus. Good challenge. Pt reports he feels his L side working, no pain PPT Reps/Minutes 10 x 5 SH Comments verbal and tactile cueing, good breath work. Gluteal Set Reps/Minutes 8 x 5 SH Comments TrA focus, vc for breathing TrA Supine Exercise Name 1. TrA Activation 2. Ball Squeeze Equipment Used blue ball Reps/Minutes 1 x 10 reps Comments cue for more gentle contraction to target TrA Sitting Exercises Hamstring stretch Side bilateral Equipment Used strap Reps/Minutes 1 x 60 ea Comments added to HEP Self-Care/Home Management Treatment Education Patient Education Home Exercise Program,Posture Other Education HEP: Added supine PPT, BKFO and seated Hamstring stretch. Educated on posture, scap retraction/depression, overuse of upper trapezius PT-OP-R Modalities Start: 12/19/21 16:19 Freq: Status: Active Protocol: Document 12/20/21 13:44 SAK (Rec: 12/20/21 15:37 SAK [id number]) Hot Pack/Cold Pack Treatment Cold Pack Location lumbar spine and SI Patient Position Hooklying Treatment Duration (minutes) 10 Patient Tolerance Good Comments strap around distal thighs for LE support in neutral position PT-OP-T Assessment and Plan Start: 12/19/21 16:19 Freq: Status: Active Protocol: Document 12/25/21 08:50 NBM (Rec: 12/25/21 10:04 NBM [id number]) Physical Therapy Assessment Goals Four Impairment Quickdash UE disability index score 20% Residential Goal (LTG) Improve Quickdash score to no greater than 5% as measure of improved UE function LTG Duration 03/23/22 Three Impairment lower extremity functional ( LEFS) scale 60% Chucking 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 Short Term Goal (STG) Patient to be able to modify his sleep patterns to not sleep on right side, and will be instructed in HEP for purposes of strengthening and stabilization. Residential Goal (LTG) Patient to be independent with HEP for right shoulder strengthening and stabilization and report improved right shoulder function with minimal to no incidences of right shoulder pain and inability to use. LTG Duration 03/23/22 One Impairment pain lumbar spine left SI and hip as high as 7/10 Short Term Goal (STG) Decrease pain to no greater than 4/10 with 50% reduction in radicular symptoms STG Duration 01/25/22 Chucking And Boring Machine Operator Goal (LTG) Patient to report pain no greater than 2/10 with all usual activities including standing and holding his grandkids and moving from sit to stand LTG Duration 03/23/22 Assessment Summary Assessment Devin demonstrates improved TrA activation with moderate cueing and good compliance with HEP. He reported increased awareness of his core muscles working with today's supine exercises with moderate cues, and decreased pain after treatment. Physical Therapy Plan Next Visit Focus/Plan Next Note Type Treatment Note Next Visit Plan Start with gentle Sci-Fit as tolerated , review TrA activation, ball squeeze, gluteal set. Add shoulder stabilization ex, possible pelvic realignment exercises. Evaluation of right ankle . Modalities and manual therapy as needed for pain Continue shoulder stabilization exercises, posture. Review new HEP: PPT, BKFO, seated HS stretch.
--- NOTE | 2021-12-28 12:52 | PT.OTN ---
Current Diagnoses Other chronic pain (12/28/21) Pain in right shoulder (12/28/21) Pain in right ankle and joints of right foot (12/28/21) Myalgia, other site (12/28/21) Physical Therapy Treatment Note PT-OP-A Visit Information Start: 12/19/21 16:19 Freq: Status: Active Protocol: Document 12/28/21 10:31 AMB (Rec: 12/28/21 12:48 AMB [id number]) Out-Patient Physical Therapy Visit Information Visit Information Visit Type Treatment Note Visit Start Time 10:30 Visit Stop Time 11:15 Total Visit Minutes 45 Visit Number 10/04 PT-OP-B Current Condition Start: 12/19/21 16:19 Freq: Status: Active Protocol: Document 12/20/21 13:44 SAK (Rec: 12/20/21 14:36 SAK [id number]) Current Condition History of Current Condition Onset Date 12 years ago shoulder Current Complaints right shoulder dysfunction, left hip pain History of Current Condition Thinks injured right shoulder while removing amina, jamming his shoulder. 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 If not doing anything really physical sometimes it feels and works fine. Patient is left handed. Was going to come for PT, then Covid happened. History of 3 ankle sprains with swelling right LE. 1 month ago reports onset of left hip pain, possibly due to compensation with his walking . Reports sharp, stabbing, and burning pain left hip/low back, feels like it is going to cut off his legs, almost causing him to fall. States he is heavier than he ever has been. Prior Treatments and Tests No x-ray or MRI yet Prior Functional Status Baseline Function- ADL's Independent Baseline Function- Mobility Independent Baseline Function- Gait no difficulty Baseline Function- Work/School no difficulty Current Functional Impairments (Reported) Functional Limitations- ADL's Hip pain interrupts sleep, pain with bending, lifting, walking, sharp stabbing pain with sit to stand, pain with standing and holding grandkids : fire down his thighs. If sleeps wrong on right UE can't use arm Functional Limitations- Mobility/Gait limps Functional Limitations- Recreation/ playing with grandkids painful Hobbies Personal Factors Other Personal Factors That May Effect obesity; patient is 11/19, 89 Therapy/Recovery lbs PT-OP-C Subjective Start: 12/19/21 16:19 Freq: Status: Active Protocol: Document 12/28/21 10:31 AMB (Rec: 12/28/21 12:48 AMB [id number]) OP-PT Subjective Patient Comments Patient Comments Pt reports he continues to feel better, has not had any feelings of the legs giving way since Friday, did have that experience once since . Is working on sleep positioning, planning on getting a body pillow. Doing HEP. Not as worried about ankle or shoulder at this point, mostly concerned with feeling of legs giving way, hasn't noticed as much numbness, is aware of L hip/SI /low back pain at baseline. PT-OP-G Mobility & Gait Start: 12/19/21 16:19 Freq: Status: Active Protocol: Document 12/20/21 13:44 SAK (Rec: 12/23/21 08:55 SAK [id number]) OP Mobility Evaluation Transfers Sit to Stand painful Functional Movements Squats painful OP Gait Assessment Gait Gait Assistance Required: Independent Assistive Devices Assistive Device None Gait Deviations General Gait Pattern Wide Based Gait Factors Limiting Gait Function Factors Limiting Gait Function Decreased Strength,Pain Comments Gait Comments excess ER bilateral LE's left greater than right PT-OP-H Neuro Start: 12/19/21 16:19 Freq: Status: Active Protocol: Document 12/20/21 13:44 SAK (Rec: 12/23/21 08:55 SAK [id number]) Sensation Evaluation Gross Sensation Gross Sensation Right UE Impaired Sensation Description Paresthesia Comments Summary Comments Intact to LT bilateral UE's and LE's PT-OP-J Posture/Palpation/Skin Start: 12/19/21 16:19 Freq: Status: Active Protocol: Document 12/20/21 13:44 SAK (Rec: 12/23/21 08:55 SAK [id number]) Posture Evaluation Position Standing Head/C-Spine Posture Forward Head T-Spine Posture Increased Kyphosis L-Spine Posture Increased Lordosis Shoulder Posture (L) Rounded,(R) Rounded Scapula Posture (L) Protracted,(R) Protracted Arm Posture (L) Internally Rotated,(R) Internally Rotated Weight Distribution Weight Shifted Right Palpation Assessment Location left piriformis Palpation Findings Tenderness left greater trochanter Palpation Findings Tenderness left SI Palpation Findings Tenderness right shoulder Palpation Findings None/Normal PT-OP-K Range of Motion Start: 12/19/21 16:19 Freq: Status: Active Protocol: Document 12/20/21 13:44 SAK (Rec: 12/23/21 08:55 [facility] [id number]) Cervical Spine Range of Motion Cervical Spine Active Comments WNL Lumbar Spine Range of Motion Lumbar Spine Active Flexion 25 Extension 15 Rotation Left 20 Rotation Right 20 Lateral Flexion Left 15 Lateral Flexion Right 15 ROM Limitations Pain Comments reported pain with all motions Shoulder Goniometric Range of Motion Shoulder Right Shoulder ROM WFL Yes Flexion 180 Extension 95 Abduction 180 External Rotation at 45 degrees 95 Abduction Internal Rotation Behind Back (text) T10 Left Shoulder ROM WFL Yes Flexion 180 Extension 40 Abduction 180 External Rotation at 90 degrees 85 Abduction Internal Rotation Behind Back (text) T10 Hip Goniometric Range of Motion Hip Left Flexion w/Knee Flexed 105 Straight Leg Raise 50 Extension 5 Abduction 25 Internal Rotation 10 External Rotation 30 Right Flexion w/Knee Flexed 100 Straight Leg Raise 65 Extension 5 Abduction 25 Internal Rotation 10 External Rotation 35 Hip ROM Limitations Hip ROM Limitations Soft Tissue Tightness,Pain PT-OP-M Strength Start: 12/19/21 16:19 Freq: Status: Active Protocol: Document 12/20/21 13:44 [facility] (Rec: 12/23/21 08:55 [facility] [id number]) Shoulder Strength Shoulder Manual Muscle Testing Right Flexion 4+ Good+ Extension 4+ Good+ Abduction (C5) 4+ Good+ External Rotation 4 Good Internal Rotation 4 Good Left Flexion 5 Normal Extension 4+ Good+ Abduction (C5) 5 Normal External Rotation 4+ Good+ Internal Rotation 4+ Good+ Hip Strength Hip Manual Muscle Testing Right Flexion (L2) 4 Good Extension (S1) 4 Good Abduction 4 Good External Rotation 4 Good Internal Rotation 4 Good Left Flexion (L2) 4- Good- Extension (S1) 4- Good- Abduction 4 Good External Rotation 4- Good- Internal Rotation 4- Good- Comments reported pain with all resisted motions Knee Strength Knee Manual Muscle Testing Right Flexion (S2) 5 Normal Extension (L3) 5 Normal Left Flexion (S2) 5 Normal Extension (L3) 5 Normal Ankle/Foot Strength Ankle and Foot Manual Muscle Testing Right Dorsiflexion (L4) 4+ Good+ Plantarflexion (S1) 4+ Good+ Left Dorsiflexion (L4) 5 Normal Plantarflexion (S1) 5 Normal PT-OP-Q Treatments Start: 12/19/21 16:19 Freq: Status: Active Protocol: Document 12/28/21 10:31 AMB (Rec: 12/28/21 11:13 AMB [id number]) Therapeutic Exercises Supine Exercises PPT Supine Exercise Name HEP Reps/Minutes 10 x 5 SH Comments verbal and tactile cueing, good breath work. TrA Supine Exercise Name HEP 1. TrA Activation 2. Ball Squeeze Equipment Used blue ball Reps/Minutes 1 x 10 reps Comments cue for more gentle contraction to target TrA Prone Exercises prone press up Prone Exercise Name HEP Reps/Minutes 10 Comments on forearms Standing Exercises 1 Standing Exercise Name squat- partial Reps/Minutes 5 Comments with focus on TA PT-OP-R Modalities Start: 12/19/21 16:19 Freq: Status: Active Protocol: Document 12/20/21 13:44 SAK (Rec: 12/20/21 15:37 SAK [id number]) Hot Pack/Cold Pack Treatment Cold Pack Location lumbar spine and SI Patient Position Hooklying Treatment Duration (minutes) 10 Patient Tolerance Good Comments strap around distal thighs for LE support in neutral position PT-OP-T Assessment and Plan Start: 12/19/21 16:19 Freq: Status: Active Protocol: Document 12/28/21 10:31 AMB (Rec: 12/28/21 11:13 AMB [id number]) Physical Therapy Assessment Goals Four Impairment Quickdash UE disability index score 20% Fpc Goal (LTG) Improve Quickdash score to no greater than 5% as measure of improved UE function LTG Duration 03/23/22 Three Impairment lower extremity functional ( LEFS) scale 60% Fpc Goal (LTG) Improve LEFS score to at least 80% as measure of improved LE function LTG Duration 03/23/22 Two Impairment right shoulder dysfunction Impairment numbness and inability to use for prolonged period if sleeps on right side with pain as high as 7/10. Short Term Goal (STG) Patient to be able to modify his sleep patterns to not sleep on right side, and will be instructed in HEP for purposes of strengthening and stabilization. Fpc Goal (LTG) Patient to be independent with HEP for right shoulder strengthening and stabilization and report improved right shoulder function with minimal to no incidences of right shoulder pain and inability to use. 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 Encouraged to squat rather than forward bending if he does need to get something from the floor, although squatting is still a provacative position but not as intensely. Will need to continue to progress core stability and body mechanics. Physical Therapy Plan Next Visit Focus/Plan Next Note Type Treatment Note Next Visit Plan Start with gentle Sci-Fit as tolerated , review TrA activation, ball squeeze, gluteal set. Add shoulder stabilization ex, possible pelvic realignment exercises. Evaluation of right ankle . Modalities and manual therapy as needed for pain Continue shoulder stabilization exercises, posture. Review new HEP: PPT, BKFO, seated HS stretch.
--- NOTE | 2021-12-31 15:20 | PT.OTN ---
Current Diagnoses Other chronic pain (12/31/21) Pain in right shoulder (12/31/21) Pain in right ankle and joints of right foot (12/31/21) Myalgia, other site (12/31/21) Physical Therapy Treatment Note PT-OP-A Visit Information Start: 12/19/21 16:19 Freq: Status: Active Protocol: Document 12/31/21 09:05 LRN (Rec: 12/31/21 09:51 LRN [id number]) Out-Patient Physical Therapy Visit Information Visit Information Visit Type Treatment Note Visit Start Time 09:06 Visit Stop Time 09:50 Total Visit Minutes 44 Visit Number 11/04 PT-OP-B Current Condition Start: 12/19/21 16:19 Freq: Status: Active Protocol: Document 12/20/21 13:44 SAK (Rec: 12/20/21 14:36 SAK [id number]) Current Condition History of Current Condition Onset Date 12 years ago shoulder Current Complaints right shoulder dysfunction, left hip pain History of Current Condition Thinks injured right shoulder while removing amina, jamming his shoulder. 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 If not doing anything really physical sometimes it feels and works fine. Patient is left handed. Was going to come for PT, then Covid happened. History of 3 ankle sprains with swelling right LE. 1 month ago reports onset of left hip pain, possibly due to compensation with his walking . Reports sharp, stabbing, and burning pain left hip/low back, feels like it is going to cut off his legs, almost causing him to fall. States he is heavier than he ever has been. Prior Treatments and Tests No x-ray or MRI yet Prior Functional Status Baseline Function- ADL's Independent Baseline Function- Mobility Independent Baseline Function- Gait no difficulty Baseline Function- Work/School no difficulty Current Functional Impairments (Reported) Functional Limitations- ADL's Hip pain interrupts sleep, pain with bending, lifting, walking, sharp stabbing pain with sit to stand, pain with standing and holding grandkids : fire down his thighs. If sleeps wrong on right UE can't use arm Functional Limitations- Mobility/Gait limps Functional Limitations- Recreation/ playing with grandkids painful Hobbies Personal Factors Other Personal Factors That May Effect obesity; patient is 7, 280 Therapy/Recovery lbs PT-OP-C Subjective Start: 12/19/21 16:19 Freq: Status: Active Protocol: Document 12/31/21 09:05 LRN (Rec: 12/31/21 09:51 LRN [id number]) OP-PT Subjective Patient Comments Patient Comments Last night doing the standing PPT stretch and felt a pop in the L hip where he has felt a restriction. Feels like the hip went back to where it wants it to be. He can no longer feel the spot. Hasn't had a chance to check out if holding his grandbaby will create the burning numbness in the legs. PT-OP-G Mobility & Gait Start: 12/19/21 16:19 Freq: Status: Active Protocol: Document 12/20/21 13:44 SAK (Rec: 12/23/21 08:55 [facility] [id number]) OP Mobility Evaluation Transfers Sit to Stand painful Functional Movements Squats painful OP Gait Assessment Gait Gait Assistance Required: Independent Assistive Devices Assistive Device None Gait Deviations General Gait Pattern Wide Based Gait Factors Limiting Gait Function Factors Limiting Gait Function Decreased Strength,Pain Comments Gait Comments excess ER bilateral LE's left greater than right PT-OP-H Neuro Start: 12/19/21 16:19 Freq: Status: Active Protocol: Document 12/20/21 13:44 SAK (Rec: 12/23/21 08:55 [facility] [id number]) Sensation Evaluation Gross Sensation Gross Sensation Right UE Impaired Sensation Description Paresthesia Comments Summary Comments Intact to LT bilateral UE's and LE's PT-OP-J Posture/Palpation/Skin Start: 12/19/21 16:19 Freq: Status: Active Protocol: Document 12/20/21 13:44 SAK (Rec: 12/23/21 08:55 [facility] [id number]) Posture Evaluation Position Standing Head/C-Spine Posture Forward Head T-Spine Posture Increased Kyphosis L-Spine Posture Increased Lordosis Shoulder Posture (L) Rounded,(R) Rounded Scapula Posture (L) Protracted,(R) Protracted Arm Posture (L) Internally Rotated,(R) Internally Rotated Weight Distribution Weight Shifted Right Palpation Assessment Location left piriformis Palpation Findings Tenderness left greater trochanter Palpation Findings Tenderness left SI Palpation Findings Tenderness right shoulder Palpation Findings None/Normal PT-OP-K Range of Motion Start: 12/19/21 16:19 Freq: Status: Active Protocol: Document 12/20/21 13:44 [facility] (Rec: 12/23/21 08:55 [facility] [id number]) Cervical Spine Range of Motion Cervical Spine Active Comments WNL Lumbar Spine Range of Motion Lumbar Spine Active Flexion 25 Extension 15 Rotation Left 20 Rotation Right 20 Lateral Flexion Left 15 Lateral Flexion Right 15 ROM Limitations Pain Comments reported pain with all motions Shoulder Goniometric Range of Motion Shoulder Right Shoulder ROM WFL Yes Flexion 180 Extension 95 Abduction 180 External Rotation at 45 degrees 95 Abduction Internal Rotation Behind Back (text) T10 Left Shoulder ROM WFL Yes Flexion 180 Extension 40 Abduction 180 External Rotation at 90 degrees 85 Abduction Internal Rotation Behind Back (text) T10 Hip Goniometric Range of Motion Hip Left Flexion w/Knee Flexed 105 Straight Leg Raise 50 Extension 5 Abduction 25 Internal Rotation 10 External Rotation 30 Right Flexion w/Knee Flexed 100 Straight Leg Raise 65 Extension 5 Abduction 25 Internal Rotation 10 External Rotation 35 Hip ROM Limitations Hip ROM Limitations Soft Tissue Tightness,Pain PT-OP-M Strength Start: 12/19/21 16:19 Freq: Status: Active Protocol: Document 12/20/21 13:44 [facility] (Rec: 12/23/21 08:55 [facility] [id number]) Shoulder Strength Shoulder Manual Muscle Testing Right Flexion 4+ Good+ Extension 4+ Good+ Abduction (C5) 4+ Good+ External Rotation 4 Good Internal Rotation 4 Good Left Flexion 5 Normal Extension 4+ Good+ Abduction (C5) 5 Normal External Rotation 4+ Good+ Internal Rotation 4+ Good+ Hip Strength Hip Manual Muscle Testing Right Flexion (L2) 4 Good Extension (S1) 4 Good Abduction 4 Good External Rotation 4 Good Internal Rotation 4 Good Left Flexion (L2) 4- Good- Extension (S1) 4- Good- Abduction 4 Good External Rotation 4- Good- Internal Rotation 4- Good- Comments reported pain with all resisted motions Knee Strength Knee Manual Muscle Testing Right Flexion (S2) 5 Normal Extension (L3) 5 Normal Left Flexion (S2) 5 Normal Extension (L3) 5 Normal Ankle/Foot Strength Ankle and Foot Manual Muscle Testing Right Dorsiflexion (L4) 4+ Good+ Plantarflexion (S1) 4+ Good+ Left Dorsiflexion (L4) 5 Normal Plantarflexion (S1) 5 Normal PT-OP-Q Treatments Start: 12/19/21 16:19 Freq: Status: Active Protocol: Document 12/31/21 09:05 LRN (Rec: 12/31/21 09:51 LRN [id number]) Therapeutic Exercises Supine Exercises Gluteal Set Reps/Minutes 10 x 5 SH Comments TrA focus, vc for breathing TrA Supine Exercise Name HEP 1. TrA Activation 2. Ball Squeeze Equipment Used blue ball Reps/Minutes 1 x 15 reps (6 hold) Comments cue for pulling [place] in contraction to target TrA Prone Exercises prone press up Prone Exercise Name Prone press ups on elbows Reps/Minutes 10x (6 Hold) Comments Much extra time to review of ex to move arms and keep hips down Sidelying Exercises 2 Sidelying Exercise Name Clamshell w/TA tightening Side bilateral Reps/Minutes 10x each Comments Extra time for training of pelvic stab during knee lifts 1 Sidelying Exercise Name TrA tightening Side bilateral Reps/Minutes 5x each, (10 hold) Comments Extra time for cuing of TA tightening awareness Sitting Exercises 2 Sitting Exercise Name Shoulder ER/IR strengthening Side bilateral Equipment Used Lev 2 TB Reps/Minutes 10' Comments Extra time: train R shldr from lifting, keeping elbows tucked in, scap drop 1 Sitting Exercise Name Shoulder drops Side bilateral Reps/Minutes 10x Self-Care/Home Management Treatment Education Patient Education Home Exercise Program Activities Self-Care/Home Management Activities HEP: Issued & reviewed shoulder ER/IR strengthening with Lev 2 TB and white strap issued. PT-OP-R Modalities Start: 12/19/21 16:19 Freq: Status: Active Protocol: Document 12/20/21 13:44 SAK (Rec: 12/20/21 15:37 SAK [id number]) Hot Pack/Cold Pack Treatment Cold Pack Location lumbar spine and SI Patient Position Hooklying Treatment Duration (minutes) 10 Patient Tolerance Good Comments strap around distal thighs for LE support in neutral position PT-OP-T Assessment and Plan Start: 12/19/21 16:19 Freq: Status: Active Protocol: Document 12/31/21 09:05 LRN (Rec: 12/31/21 09:51 LRN [id number]) Physical Therapy Assessment Goals Four Impairment Quickdash UE disability index score 20% Bottle Washer Machine Goal (LTG) Improve Quickdash score to no greater than 5% as measure of improved UE function LTG Duration 03/23/22 Three Impairment lower extremity functional ( LEFS) scale 60% Bottle Washer [employer] Goal (LTG) Improve LEFS score to at least 80% as measure of improved LE function LTG Duration 03/23/22 Two Impairment right shoulder dysfunction Impairment numbness and inability to use for prolonged period if sleeps on right side with pain as high as 7/10. Short Term Goal (STG) Patient to be able to modify his sleep patterns to not sleep on right side, and will be instructed in HEP for purposes of strengthening and stabilization. Bottle Washer [employer] Goal (LTG) Patient to be independent with HEP for right shoulder strengthening and stabilization and report improved right shoulder function with minimal to no incidences of right shoulder pain and inability to use. LTG Duration 03/23/22 One Impairment pain lumbar spine left SI and hip as high as 7/10 Short Term Goal (STG) Decrease pain to no greater than 4/10 with 50% reduction in radicular symptoms STG Duration 01/25/22 Bottle Washer Machine Goal (LTG) Patient to report pain no greater than 2/10 with all usual activities including standing and holding his grandkids and moving from sit to stand LTG Duration 03/23/22 Assessment Summary Assessment Held Scifit due to pop in L LB/hip, with possible self mobilization of L ?SIJ/hip last night. Pt had no c/o pain with TrA/core stab ex's and had good recall of TrA, GS , Ball squeeze ex's. Good pelvic/core stab with added clamshell ex. He had soreness with shoulder ex's as pt tends to over exercise. Physical Therapy Plan Next Visit Focus/Plan Next Note Type Treatment Note Next Visit Plan Start with gentle Sci-Fit as tolerated , review shoulder ex 's and core stab (clamshell). Progress shoulder stabilization ex (?ext, AD, protraction/chest press), pelvic stab vs realignment exercises if pt self mobilized . Evaluation of right ankle . Modalities and manual therapy as needed for pain. Continue shoulder stabilization exercises, posture. Review new HEP: PPT, BKFO, seated HS stretch.
--- NOTE | 2022-01-03 17:53 | PT.OTN ---
Current Diagnoses Other chronic pain (01/03/22) Pain in right shoulder (01/03/22) Pain in right ankle and joints of right foot (01/03/22) Myalgia, other site (01/03/22) Physical Therapy Treatment Note PT-OP-A Visit Information Start: 12/19/21 16:19 Freq: Status: Active Protocol: Document 01/03/22 09:03 LRN (Rec: 01/03/22 09:48 LRN [id number]) Out-Patient Physical Therapy Visit Information Visit Information Visit Type Treatment Note Visit Start Time 09:03 Visit Stop Time 09:41 Total Visit Minutes 38 Visit Number 12/04 PT-OP-B Current Condition Start: 12/19/21 16:19 Freq: Status: Active Protocol: Document 12/20/21 13:44 SAK (Rec: 12/20/21 14:36 SAK [id number]) Current Condition History of Current Condition Onset Date 12 years ago shoulder Current Complaints right shoulder dysfunction, left hip pain History of Current Condition Thinks injured right shoulder while removing amina, jamming his shoulder. 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 If not doing anything really physical sometimes it feels and works fine. Patient is left handed. Was going to come for PT, then Covid happened. History of 3 ankle sprains with swelling right LE. 1 month ago reports onset of left hip pain, possibly due to compensation with his walking . Reports sharp, stabbing, and burning pain left hip/low back, feels like it is going to cut off his legs, almost causing him to fall. States he is heavier than he ever has been. Prior Treatments and Tests No x-ray or MRI yet Prior Functional Status Baseline Function- ADL's Independent Baseline Function- Mobility Independent Baseline Function- Gait no difficulty Baseline Function- Work/School no difficulty Current Functional Impairments (Reported) Functional Limitations- ADL's Hip pain interrupts sleep, pain with bending, lifting, walking, sharp stabbing pain with sit to stand, pain with standing and holding grandkids : fire down his thighs. If sleeps wrong on right UE can't use arm Functional Limitations- Mobility/Gait limps Functional Limitations- Recreation/ playing with grandkids painful Hobbies Personal Factors Other Personal Factors That May Effect obesity; patient is [age], 89 Therapy/Recovery lbs PT-OP-C Subjective Start: 12/19/21 16:19 Freq: Status: Active Protocol: Document 01/03/22 09:03 LRN (Rec: 01/03/22 09:48 LRN [id number]) OP-PT Subjective Patient Comments Patient Comments Little sore in LB last night after a day at the beach. Since the pop he didn't have the pain until last night, but pain was different not like pain from moving different, but just discomfort across the LB. Legs didn' t start burning as bad, more on R leg. Burning was different, instead of down front, was on the sides of the legs. For first time felt a dull pain in the L low back rather than awareness. Today LBP is 07/23. PT-OP-G Mobility & Gait Start: 12/19/21 16:19 Freq: Status: Active Protocol: Document 12/20/21 13:44 SAK (Rec: 12/23/21 08:55 [facility] [id number]) OP Mobility Evaluation Transfers Sit to Stand painful Functional Movements Squats painful OP Gait Assessment Gait Gait Assistance Required: Independent Assistive Devices Assistive Device None Gait Deviations General Gait Pattern Wide Based Gait Factors Limiting Gait Function Factors Limiting Gait Function Decreased Strength,Pain Comments Gait Comments excess ER bilateral LE's left greater than right PT-OP-H Neuro Start: 12/19/21 16:19 Freq: Status: Active Protocol: Document 12/20/21 13:44 SAK (Rec: 12/23/21 08:55 [facility] [id number]) Sensation Evaluation Gross Sensation Gross Sensation Right UE Impaired Sensation Description Paresthesia Comments Summary Comments Intact to LT bilateral UE's and LE's PT-OP-J Posture/Palpation/Skin Start: 12/19/21 16:19 Freq: Status: Active Protocol: Document 12/20/21 13:44 SAK (Rec: 12/23/21 08:55 [facility] [id number]) Posture Evaluation Position Standing Head/C-Spine Posture Forward Head T-Spine Posture Increased Kyphosis L-Spine Posture Increased Lordosis Shoulder Posture (L) Rounded,(R) Rounded Scapula Posture (L) Protracted,(R) Protracted Arm Posture (L) Internally Rotated,(R) Internally Rotated Weight Distribution Weight Shifted Right Palpation Assessment Location left piriformis Palpation Findings Tenderness left greater trochanter Palpation Findings Tenderness left SI Palpation Findings Tenderness right shoulder Palpation Findings None/Normal PT-OP-K Range of Motion Start: 12/19/21 16:19 Freq: Status: Active Protocol: Document 12/20/21 13:44 [facility] (Rec: 12/23/21 08:55 [facility] [id number]) Cervical Spine Range of Motion Cervical Spine Active Comments WNL Lumbar Spine Range of Motion Lumbar Spine Active Flexion 25 Extension 15 Rotation Left 20 Rotation Right 20 Lateral Flexion Left 15 Lateral Flexion Right 15 ROM Limitations Pain Comments reported pain with all motions Shoulder Goniometric Range of Motion Shoulder Right Shoulder ROM WFL Yes Flexion 180 Extension 95 Abduction 180 External Rotation at 45 degrees 95 Abduction Internal Rotation Behind Back (text) T10 Left Shoulder ROM WFL Yes Flexion 180 Extension 40 Abduction 180 External Rotation at 90 degrees 85 Abduction Internal Rotation Behind Back (text) T10 Hip Goniometric Range of Motion Hip Left Flexion w/Knee Flexed 105 Straight Leg Raise 50 Extension 5 Abduction 25 Internal Rotation 10 External Rotation 30 Right Flexion w/Knee Flexed 100 Straight Leg Raise 65 Extension 5 Abduction 25 Internal Rotation 10 External Rotation 35 Hip ROM Limitations Hip ROM Limitations Soft Tissue Tightness,Pain PT-OP-M Strength Start: 12/19/21 16:19 Freq: Status: Active Protocol: Document 12/20/21 13:44 [facility] (Rec: 12/23/21 08:55 [facility] [id number]) Shoulder Strength Shoulder Manual Muscle Testing Right Flexion 4+ Good+ Extension 4+ Good+ Abduction (C5) 4+ Good+ External Rotation 4 Good Internal Rotation 4 Good Left Flexion 5 Normal Extension 4+ Good+ Abduction (C5) 5 Normal External Rotation 4+ Good+ Internal Rotation 4+ Good+ Hip Strength Hip Manual Muscle Testing Right Flexion (L2) 4 Good Extension (S1) 4 Good Abduction 4 Good External Rotation 4 Good Internal Rotation 4 Good Left Flexion (L2) 4- Good- Extension (S1) 4- Good- Abduction 4 Good External Rotation 4- Good- Internal Rotation 4- Good- Comments reported pain with all resisted motions Knee Strength Knee Manual Muscle Testing Right Flexion (S2) 5 Normal Extension (L3) 5 Normal Left Flexion (S2) 5 Normal Extension (L3) 5 Normal Ankle/Foot Strength Ankle and Foot Manual Muscle Testing Right Dorsiflexion (L4) 4+ Good+ Plantarflexion (S1) 4+ Good+ Left Dorsiflexion (L4) 5 Normal Plantarflexion (S1) 5 Normal PT-OP-Q Treatments Start: 12/19/21 16:19 Freq: Status: Active Protocol: Document 01/03/22 09:03 LRN (Rec: 01/03/22 09:48 LRN [id number]) Therapeutic Exercises Supine Exercises Bridge Supine Exercise Name TA w/neutral spine (ns)/Bridge Reps/Minutes 10x 5 SH Comments Phys & v cuing to obtain ns before bridging. PPT Supine Exercise Name PPT w/Ball squeeze Equipment Used [place] Reps/Minutes 10 x 10 SH Comments verbal and tactile cueing, good breath work. TrA Supine Exercise Name HEP 1. TrA Activation w/Ball Squeeze Equipment Used blue ball Reps/Minutes 10 x 5 SH Comments cue for neutral spine and TrA co-contraction w/ball squeeze Prone Exercises prone press up Prone Exercise Name Prone press ups on elbows Reps/Minutes 15x (6 Hold) Comments Much extra time to review of ex to move arms and keep hips down Sidelying Exercises 2 Sidelying Exercise Name Clamshell w/TA tightening Side bilateral Reps/Minutes 15x each Standing Exercises Shoulder flex Standing Exercise Name Shoulder flex woring on proper R SHR Reps/Minutes 3' Comments R SHR needing phys cuing to scapula for normal mvmt Shoulder ER strengthening Standing Exercise Name Shoulder ER strengthening Side bilateral Equipment Used Lev 2 TB Reps/Minutes 15x Comments Cuing for TA & proper upper body posture Shoulder IR strengthening Standing Exercise Name Shoulder IR strengthening Side bilateral Equipment Used Lev 2 TB Reps/Minutes 15x Comments Cuing for TA & proper upper body posture Manual Therapy Treatment Manual Traction Lumbar Details Lumbar Traction with belt in hooklie Body Position Hooklying Reps/Duration 3' Comments Decrease in tension in LB with traction, no LBP. Self-Care/Home Management Treatment Activities Self-Care/Home Management Activities I/S pt to do slow controlled shoulder flex (wall slide motioin) > return to start. PT-OP-R Modalities Start: 12/19/21 16:19 Freq: Status: Active Protocol: Document 12/20/21 13:44 SAK (Rec: 12/20/21 15:37 SAK [id number]) Hot Pack/Cold Pack Treatment Cold Pack Location lumbar spine and SI Patient Position Hooklying Treatment Duration (minutes) 10 Patient Tolerance Good Comments strap around distal thighs for LE support in neutral position PT-OP-T Assessment and Plan Start: 12/19/21 16:19 Freq: Status: Active Protocol: Document 01/03/22 09:03 LRN (Rec: 01/03/22 09:48 LRN [id number]) Physical Therapy Assessment Goals Four Impairment Quickdash UE disability index score 20% Patient Services Coordinator Goal (LTG) Improve Quickdash score to no greater than 5% as measure of improved UE function LTG Duration 03/23/22 Three Impairment lower extremity functional ( LEFS) scale 60% Patient Services Coordinator Goal (LTG) Improve LEFS score to at least 80% as measure of improved LE function LTG Duration 03/23/22 Two Impairment right shoulder dysfunction Impairment numbness and inability to use for prolonged period if sleeps on right side with pain as high as 7/10. Short Term Goal (STG) Patient to be able to modify his sleep patterns to not sleep on right side, and will be instructed in HEP for purposes of strengthening and stabilization. Nursing Home Goal (LTG) Patient to be independent with HEP for right shoulder strengthening and stabilization and report improved right shoulder function with minimal to no incidences of right shoulder pain and inability to use. LTG Duration 03/23/22 One Impairment pain lumbar spine left SI and hip as high as 7/10 Short Term Goal (STG) Decrease pain to no greater than 4/10 with 50% reduction in radicular symptoms STG Duration 01/25/22 Nursing Home Goal (LTG) Patient to report pain no greater than 2/10 with all usual activities including standing and holding his grandkids and moving from sit to stand LTG Duration 03/23/22 Assessment Summary Assessment Pt appears to have self mobilized the LB/?L SIJ and is not feeling general LBP but is having sciatic type pain in the upper thighs. Good tolerance to ex. Pt was only able to do a slight bridge with ns positioning. Pt is very consciencous with ex's. Does shoulder IR/ER strengthening with good elbow positioning in body, needed cuing for core control. Physical Therapy Plan Next Visit Focus/Plan Next Note Type Treatment Note Next Visit Plan Recommend hold on Sci-Fit as tolerated until , review shoulder ex's and core stab ( lashell). Progress shoulder stabilization ex (?ext, AD, protraction/chest press), pelvic stab vs realignment exercises if pt self mobilized . Evaluation of right ankle . Modalities and manual therapy as needed for pain. Continue shoulder stabilization exercises, posture. Review new HEP: PPT, BKFO, seated HS stretch.
--- NOTE | 2022-01-08 17:00 | PT.OTN ---
Current Diagnoses Other chronic pain (01/08/22) Pain in right shoulder (01/08/22) Pain in right ankle and joints of right foot (01/08/22) Myalgia, other site (01/08/22) Physical Therapy Treatment Note PT-OP-A Visit Information Start: 12/19/21 16:19 Freq: Status: Active Protocol: Document 01/08/22 09:47 LRN (Rec: 01/08/22 10:33 LRN [id number]) Out-Patient Physical Therapy Visit Information Visit Information Visit Type Treatment Note Visit Start Time 09:45 Visit Stop Time 10:28 Total Visit Minutes 43 Visit Number 01/04 Evaluation Information Evaluation Date 12/20/21 PT-OP-B Current Condition Start: 12/19/21 16:19 Freq: Status: Active Protocol: Document 12/20/21 13:44 SAK (Rec: 12/20/21 14:36 SAK [id number]) Current Condition History of Current Condition Onset Date 12 years ago shoulder Current Complaints right shoulder dysfunction, left hip pain History of Current Condition Thinks injured right shoulder while removing amina, jamming his shoulder. 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 If not doing anything really physical sometimes it feels and works fine. Patient is left handed. Was going to come for PT, then Covid happened. History of 3 ankle sprains with swelling right LE. 1 month ago reports onset of left hip pain, possibly due to compensation with his walking . Reports sharp, stabbing, and burning pain left hip/low back, feels like it is going to cut off his legs, almost causing him to fall. States he is heavier than he ever has been. Prior Treatments and Tests No x-ray or MRI yet Prior Functional Status Baseline Function- ADL's Independent Baseline Function- Mobility Independent Baseline Function- Gait no difficulty Baseline Function- Work/School no difficulty Current Functional Impairments (Reported) Functional Limitations- ADL's Hip pain interrupts sleep, pain with bending, lifting, walking, sharp stabbing pain with sit to stand, pain with standing and holding grandkids : fire down his thighs. If sleeps wrong on right UE can't use arm Functional Limitations- Mobility/Gait limps Functional Limitations- Recreation/ playing with grandkids painful Hobbies Personal Factors Other Personal Factors That May Effect obesity; patient is [birth year]19, 89 Therapy/Recovery lbs PT-OP-C Subjective Start: 12/19/21 16:19 Freq: Status: Active Protocol: Document 01/08/22 09:47 LRN (Rec: 01/08/22 10:33 LRN [id number]) OP-PT Subjective Patient Comments Patient Comments After last session had noticeable pain in the back until today. May have been since his daughter jumped onto him reported last session. Today not feeling the pain in the back and standing on the feet there is no pain on the L SIJ. Doesn't feel like it needs to pop in the L SIJ. R shoulder feels pretty good, but not able to lie on R side to sleep at night. PT-OP-G Mobility & Gait Start: 12/19/21 16:19 Freq: Status: Active Protocol: Document 12/20/21 13:44 SAK (Rec: 12/23/21 08:55 [facility] [id number]) OP Mobility Evaluation Transfers Sit to Stand painful Functional Movements Squats painful OP Gait Assessment Gait Gait Assistance Required: Independent Assistive Devices Assistive Device None Gait Deviations General Gait Pattern Wide Based Gait Factors Limiting Gait Function Factors Limiting Gait Function Decreased Strength,Pain Comments Gait Comments excess ER bilateral LE's left greater than right PT-OP-H Neuro Start: 12/19/21 16:19 Freq: Status: Active Protocol: Document 12/20/21 13:44 SAK (Rec: 12/23/21 08:55 [facility] [id number]) Sensation Evaluation Gross Sensation Gross Sensation Right UE Impaired Sensation Description Paresthesia Comments Summary Comments Intact to LT bilateral UE's and LE's PT-OP-J Posture/Palpation/Skin Start: 12/19/21 16:19 Freq: Status: Active Protocol: Document 12/20/21 13:44 SAK (Rec: 12/23/21 08:55 [facility] [id number]) Posture Evaluation Position Standing Head/C-Spine Posture Forward Head T-Spine Posture Increased Kyphosis L-Spine Posture Increased Lordosis Shoulder Posture (L) Rounded,(R) Rounded Scapula Posture (L) Protracted,(R) Protracted Arm Posture (L) Internally Rotated,(R) Internally Rotated Weight Distribution Weight Shifted Right Palpation Assessment Location left piriformis Palpation Findings Tenderness left greater trochanter Palpation Findings Tenderness left SI Palpation Findings Tenderness right shoulder Palpation Findings None/Normal PT-OP-K Range of Motion Start: 12/19/21 16:19 Freq: Status: Active Protocol: Document 12/20/21 13:44 SAK (Rec: 12/23/21 08:55 SAK [id number]) Cervical Spine Range of Motion Cervical Spine Active Comments WNL Lumbar Spine Range of Motion Lumbar Spine Active Flexion 25 Extension 15 Rotation Left 20 Rotation Right 20 Lateral Flexion Left 15 Lateral Flexion Right 15 ROM Limitations Pain Comments reported pain with all motions Shoulder Goniometric Range of Motion Shoulder Right Shoulder ROM WFL Yes Flexion 180 Extension 95 Abduction 180 External Rotation at 45 degrees 95 Abduction Internal Rotation Behind Back (text) T10 Left Shoulder ROM WFL Yes Flexion 180 Extension 40 Abduction 180 External Rotation at 90 degrees 85 Abduction Internal Rotation Behind Back (text) T10 Hip Goniometric Range of Motion Hip Left Flexion w/Knee Flexed 105 Straight Leg Raise 50 Extension 5 Abduction 25 Internal Rotation 10 External Rotation 30 Right Flexion w/Knee Flexed 100 Straight Leg Raise 65 Extension 5 Abduction 25 Internal Rotation 10 External Rotation 35 Hip ROM Limitations Hip ROM Limitations Soft Tissue Tightness,Pain PT-OP-M Strength Start: 12/19/21 16:19 Freq: Status: Active Protocol: Document 01/08/22 09:47 LRN (Rec: 01/08/22 10:33 LRN [id number]) Ankle/Foot Strength Ankle and Foot Manual Muscle Testing Right Dorsiflexion (L4) 4+ Good+ Plantarflexion (S1) 5 Normal Inversion 4+ Good+ Eversion (S1) 4+ Good+ Left Dorsiflexion (L4) 5 Normal Plantarflexion (S1) 5 Normal Inversion 5 Normal Eversion (S1) 5 Normal PT-OP-Q Treatments Start: 12/19/21 16:19 Freq: Status: Active Protocol: Document 01/08/22 09:47 LRN (Rec: 01/08/22 10:33 LRN [id number]) Therapeutic Exercises Supine Exercises Bridge Supine Exercise Name TA w/neutral spine (ns)/Bridge Reps/Minutes 10x 5 SH Comments Phys & v cuing to obtain ns before bridging. BKFO Supine Exercise Name alternating Bent Knee Fall Out Side bilateral Reps/Minutes 1 x 15 rep ea Comments TrA focus. Good challenge. Pt reports he feels his L side working, no pain PPT Supine Exercise Name PPT w/Ball squeeze Equipment Used [place] Reps/Minutes 5 x 10 SH Comments verbal and tactile cueing, good breath work. TrA Supine Exercise Name Blas knee to chest for 90/90 positioning Side bilateral Equipment Used red ball Reps/Minutes 15x 2 Comments cue for neutral spine and TrA co-contraction Prone Exercises prone press up Prone Exercise Name Prone press ups on elbows Reps/Minutes 10x 2 Comments Much extra time to review of ex to move arms and keep hips down Sidelying Exercises 2 Sidelying Exercise Name Clamshell w/TA tightening Side bilateral Reps/Minutes 15x 2 each Sitting Exercises 2 Sitting Exercise Name Shoulder ER/IR strengthening Side bilateral Equipment Used Lev 2 TB Reps/Minutes 10' Comments Extra time: train R shldr from lifting, keeping elbows tucked in, scap drop 1 Sitting Exercise Name Shoulder drops Side bilateral Reps/Minutes 10x Standing Exercises Shoulder flex Standing Exercise Name Shoulder flex woring on proper R SHR Shoulder ER strengthening Standing Exercise Name Shoulder ER strengthening Side right Equipment Used Lev 1 TB Reps/Minutes 10x Comments Cuing for TA & proper upper body posture Shoulder IR strengthening Standing Exercise Name Shoulder IR strengthening Side bilateral Equipment Used Lev 4 TB Reps/Minutes 10x Comments Cuing for TA & proper upper body posture 1 Standing Exercise Name squat- partial Self-Care/Home Management Treatment Education Patient Education Home Exercise Program Activities Self-Care/Home Management Activities Issued & reviewed HEP: R Ankle EV/DF strengthening with Leev 3 TB. Issued Lev 3 & Lev 4 TBand since pt broke Lev 2 TBand last issued. PT-OP-R Modalities Start: 12/19/21 16:19 Freq: Status: Active Protocol: Document 12/20/21 13:44 SAK (Rec: 12/20/21 15:37 SAK [id number]) Hot Pack/Cold Pack Treatment Cold Pack Location lumbar spine and SI Patient Position Hooklying Treatment Duration (minutes) 10 Patient Tolerance Good Comments strap around distal thighs for LE support in neutral position PT-OP-T Assessment and Plan Start: 12/19/21 16:19 Freq: Status: Active Protocol: Document 01/08/22 09:47 LRN (Rec: 01/08/22 10:33 LRN [id number]) Physical Therapy Assessment Goals Four Impairment Quickdash UE disability index score 20% Jail Goal (LTG) Improve Quickdash score to no greater than 5% as measure of improved UE function LTG Duration 03/23/22 Three Impairment lower extremity functional ( LEFS) scale 60% Jail Goal (LTG) Improve LEFS score to at least 80% as measure of improved LE function LTG Duration 03/23/22 Two Impairment right shoulder dysfunction Impairment numbness and inability to use for prolonged period if sleeps on right side with pain as high as 7/10. Short Term Goal (STG) Patient to be able to modify his sleep patterns to not sleep on right side, and will be instructed in HEP for purposes of strengthening and stabilization. Jail Goal (LTG) Patient to be independent with HEP for right shoulder strengthening and stabilization and report improved right shoulder function with minimal to no incidences of right shoulder pain and inability to use. LTG Duration 03/23/22 One Impairment pain lumbar spine left SI and hip as high as 7/10 Short Term Goal (STG) Decrease pain to no greater than 4/10 with 50% reduction in radicular symptoms (01/08/22: LBP/L SIJ varable onset of pain). STG Duration 01/25/22 Confectionery Maker Goal (LTG) Patient to report pain no greater than 2/10 with all usual activities including standing and holding his grandkids and moving from sit to stand LTG Duration 03/23/22 Progress Towards Goals Progress Comments Progressed HEP Assessment Summary Assessment Pt L SIJ appears to have self mobilized; therefore further pelvic stab is needed. Pt demonstrates improved core stability with ex and is able to hold pelvis stable with clamshell without R shoulder pain. Pt needed more resistance with shoulder strengthening ex's and tolerated lev 3 TB for ankle ex's w/o complaints of pain. Pt weak in R ankle with DF/EV. Physical Therapy Plan Frequency and Duration Frequency of Treatment 2x/Week Duration of Treatment 12 weeks Plan of Care Start Date 12/20/21 Plan of Care End Date 03/23/22 Next Visit Focus/Plan Next Note Type Treatment Note Next Visit Plan Recommend hold on Sci-Fit until improved core/pelvis stability, review ankle ex's and evaluation of right ankle AROM. Progress BKFO with resistance. Progress R shoulder stabilization ex (?ext, AD, protraction/chest press), pelvic stab vs realignment exercises due to pt self mobilized. Modalities and manual therapy as needed for pain. Continue shoulder stabilization exercises, posture. Review new HEP: PPT, BKFO, seated HS stretch.
--- NOTE | 2022-01-11 16:56 | PT.OTN ---
Current Diagnoses Other chronic pain (01/11/22) Pain in right shoulder (01/11/22) Pain in right ankle and joints of right foot (01/11/22) Myalgia, other site (01/11/22) Physical Therapy Treatment Note PT-OP-A Visit Information Start: 12/19/21 16:19 Freq: Status: Active Protocol: Document 01/11/22 09:48 LRN (Rec: 01/11/22 10:30 LRN [id number]) Out-Patient Physical Therapy Visit Information Visit Information Visit Type Treatment Note Visit Start Time 09:48 Visit Stop Time 10:29 Total Visit Minutes 41 Visit Number 02/03 Evaluation Information Evaluation Date 12/20/21 PT-OP-B Current Condition Start: 12/19/21 16:19 Freq: Status: Active Protocol: Document 12/20/21 13:44 SAK (Rec: 12/20/21 14:36 SAK [id number]) Current Condition History of Current Condition Onset Date 12 years ago shoulder Current Complaints right shoulder dysfunction, left hip pain History of Current Condition Thinks injured right shoulder while removing amina, jamming his shoulder. 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 If not doing anything really physical sometimes it feels and works fine. Patient is left handed. Was going to come for PT, then Covid happened. History of 3 ankle sprains with swelling right LE. 1 month ago reports onset of left hip pain, possibly due to compensation with his walking . Reports sharp, stabbing, and burning pain left hip/low back, feels like it is going to cut off his legs, almost causing him to fall. States he is heavier than he ever has been. Prior Treatments and Tests No x-ray or MRI yet Prior Functional Status Baseline Function- ADL's Independent Baseline Function- Mobility Independent Baseline Function- Gait no difficulty Baseline Function- Work/School no difficulty Current Functional Impairments (Reported) Functional Limitations- ADL's Hip pain interrupts sleep, pain with bending, lifting, walking, sharp stabbing pain with sit to stand, pain with standing and holding grandkids : fire down his thighs. If sleeps wrong on right UE can't use arm Functional Limitations- Mobility/Gait limps Functional Limitations- Recreation/ playing with grandkids painful Hobbies Personal Factors Other Personal Factors That May Effect obesity; patient is 7, 280 Therapy/Recovery lbs PT-OP-C Subjective Start: 12/19/21 16:19 Freq: Status: Active Protocol: Document 01/11/22 09:48 LRN (Rec: 01/11/22 10:30 LRN [id number]) OP-PT Subjective Patient Comments Patient Comments States he has had L SIJ pain once, but it went away. States shoulder has been doing pretty good. PT-OP-G Mobility & Gait Start: 12/19/21 16:19 Freq: Status: Active Protocol: Document 12/20/21 13:44 SAK (Rec: 12/23/21 08:55 SAK [id number]) OP Mobility Evaluation Transfers Sit to Stand painful Functional Movements Squats painful OP Gait Assessment Gait Gait Assistance Required: Independent Assistive Devices Assistive Device None Gait Deviations General Gait Pattern Wide Based Gait Factors Limiting Gait Function Factors Limiting Gait Function Decreased Strength,Pain Comments Gait Comments excess ER bilateral LE's left greater than right PT-OP-H Neuro Start: 12/19/21 16:19 Freq: Status: Active Protocol: Document 12/20/21 13:44 SAK (Rec: 12/23/21 08:55 SAK [id number]) Sensation Evaluation Gross Sensation Gross Sensation Right UE Impaired Sensation Description Paresthesia Comments Summary Comments Intact to LT bilateral UE's and LE's PT-OP-J Posture/Palpation/Skin Start: 12/19/21 16:19 Freq: Status: Active Protocol: Document 12/20/21 13:44 SAK (Rec: 12/23/21 08:55 SAK [id number]) Posture Evaluation Position Standing Head/C-Spine Posture Forward Head T-Spine Posture Increased Kyphosis L-Spine Posture Increased Lordosis Shoulder Posture (L) Rounded,(R) Rounded Scapula Posture (L) Protracted,(R) Protracted Arm Posture (L) Internally Rotated,(R) Internally Rotated Weight Distribution Weight Shifted Right Palpation Assessment Location left piriformis Palpation Findings Tenderness left greater trochanter Palpation Findings Tenderness left SI Palpation Findings Tenderness right shoulder Palpation Findings None/Normal PT-OP-K Range of Motion Start: 12/19/21 16:19 Freq: Status: Active Protocol: Document 12/20/21 13:44 SAK (Rec: 12/23/21 08:55 SAK [id number]) Cervical Spine Range of Motion Cervical Spine Active Comments WNL Lumbar Spine Range of Motion Lumbar Spine Active Flexion 25 Extension 15 Rotation Left 20 Rotation Right 20 Lateral Flexion Left 15 Lateral Flexion Right 15 ROM Limitations Pain Comments reported pain with all motions Shoulder Goniometric Range of Motion Shoulder Right Shoulder ROM WFL Yes Flexion 180 Extension 95 Abduction 180 External Rotation at 45 degrees 95 Abduction Internal Rotation Behind Back (text) T10 Left Shoulder ROM WFL Yes Flexion 180 Extension 40 Abduction 180 External Rotation at 90 degrees 85 Abduction Internal Rotation Behind Back (text) T10 Hip Goniometric Range of Motion Hip Left Flexion w/Knee Flexed 105 Straight Leg Raise 50 Extension 5 Abduction 25 Internal Rotation 10 External Rotation 30 Right Flexion w/Knee Flexed 100 Straight Leg Raise 65 Extension 5 Abduction 25 Internal Rotation 10 External Rotation 35 Hip ROM Limitations Hip ROM Limitations Soft Tissue Tightness,Pain PT-OP-M Strength Start: 12/19/21 16:19 Freq: Status: Active Protocol: Document 01/08/22 09:47 LRN (Rec: 01/08/22 10:33 LRN [id number]) Ankle/Foot Strength Ankle and Foot Manual Muscle Testing Right Dorsiflexion (L4) 4+ Good+ Plantarflexion (S1) 5 Normal Inversion 4+ Good+ Eversion (S1) 4+ Good+ Left Dorsiflexion (L4) 5 Normal Plantarflexion (S1) 5 Normal Inversion 5 Normal Eversion (S1) 5 Normal PT-OP-Q Treatments Start: 12/19/21 16:19 Freq: Status: Active Protocol: Document 01/11/22 09:48 LRN (Rec: 01/11/22 10:30 LRN [id number]) Therapeutic Exercises Supine Exercises Lat Pull down Supine Exercise Name Lat PUll down Side bilateral Equipment Used 4#, Lev 4 TB Reps/Minutes 10x 2 Scapular protraction Supine Exercise Name Scapular Protraction Side bilateral Equipment Used 4# Reps/Minutes 10x 2 Bridge Supine Exercise Name TA w/neutral spine (ns)/Bridge Reps/Minutes 10x 15 SH Comments Cuing to lift higher with bridge BKFO Supine Exercise Name Blas Bent Knee Fall Out Side bilateral Reps/Minutes 1 x 15 rep ea Comments TrA focus. Good challenge. Pt reports he feels his L side working, no pain Standing Exercises Serratus wall slide Standing Exercise Name Forearms on wall, TB around wrists for shldr flex Side bilateral Reps/Minutes 10x 2 Shoulder ER strengthening Standing Exercise Name Shoulder ER strengthening Side bilateral Equipment Used Lev 4 TB Reps/Minutes 10x 2 Comments Cuing for TA & proper upper body posture Shoulder IR strengthening Standing Exercise Name Shoulder IR strengthening Side right Equipment Used Lev 4 TB Reps/Minutes 10x 2 Comments Cuing for TA & proper upper body posture Self-Care/Home Management Treatment Education Patient Education Home Exercise Program Activities Self-Care/Home Management Activities Issued & reviewed HEP: Serratus anterior & Lat Dorsi strengthening ex. White strap issued. PT-OP-R Modalities Start: 12/19/21 16:19 Freq: Status: Active Protocol: Document 12/20/21 13:44 SAK (Rec: 12/20/21 15:37 SAK [id number]) Hot Pack/Cold Pack Treatment Cold Pack Location lumbar spine and SI Patient Position Hooklying Treatment Duration (minutes) 10 Patient Tolerance Good Comments strap around distal thighs for LE support in neutral position PT-OP-T Assessment and Plan Start: 12/19/21 16:19 Freq: Status: Active Protocol: Document 01/11/22 09:48 LRN (Rec: 01/11/22 10:30 LRN [id number]) Physical Therapy Assessment Goals Four Impairment Quickdash UE disability index score 20% Penitentiary Goal (LTG) Improve Quickdash score to no greater than 5% as measure of improved UE function LTG Duration 03/23/22 Three Impairment lower extremity functional ( LEFS) scale 60% Penitentiary Goal (LTG) Improve LEFS score to at least 80% as measure of improved LE function LTG Duration 03/23/22 Two Impairment right shoulder dysfunction Impairment numbness and inability to use for prolonged period if sleeps on right side with pain as high as 7/10. Short Term Goal (STG) Patient to be able to modify his sleep patterns to not sleep on right side, and will be instructed in HEP for purposes of strengthening and stabilization. (01/11/22: Sometimes has numbness in R arm, but no pain ) Composition Tile Layer Goal (LTG) Patient to be independent with HEP for right shoulder strengthening and stabilization and report improved right shoulder function with minimal to no incidences of right shoulder pain and inability to use. LTG Duration 03/23/22 One Impairment pain lumbar spine left SI and hip as high as 7/10 Short Term Goal (STG) Decrease pain to no greater than 4/10 with 50% reduction in radicular symptoms (01/08/22: LBP/L SIJ varable onset of pain). (01/11/22: LBP/L SIJ pain 3-4/ 10 twice this past week) STG Duration 01/25/22 (01/11/22: MET GOAL) Composition Tile Layer Goal (LTG) Patient to report pain no greater than 2/10 with all usual activities including standing and holding his grandkids and moving from sit to stand LTG Duration 03/23/22 Assessment Summary Assessment Improvement in SHR control with shoulder flex ROM. Pt shows weakness with Serratus on ecc contraction during supine chest press with extra shove ex. Pt able to maintain core stability with TB resisted blas BKFO. Physical Therapy Plan Frequency and Duration Frequency of Treatment 2x/Week Duration of Treatment 12 weeks Plan of Care Start Date 12/20/21 Plan of Care End Date 03/23/22 Next Visit Focus/Plan Next Note Type Treatment Note Next Visit Plan Hold on Sci-Fit until improved core/pelvis stability. Review ankle ex's and eval right ankle AROM. Try single BKFO with resistance, Progress R shoulder stabilization ex (Serratus, ? ext, AD), Pelvic stab vs realignment exercises due to pt self mobilized. Modalities and manual therapy as needed for pain. Review new HEP: seated HS stretch.
--- NOTE | 2022-01-15 11:46 | PT.OTN ---
Current Diagnoses Other chronic pain (01/15/22) Pain in right shoulder (01/15/22) Pain in right ankle and joints of right foot (01/15/22) Myalgia, other site (01/15/22) Physical Therapy Treatment Note PT-OP-A Visit Information Start: 12/19/21 16:19 Freq: Status: Active Protocol: Document 01/15/22 09:55 LRN (Rec: 01/15/22 10:35 LRN [id number]) Out-Patient Physical Therapy Visit Information Visit Information Visit Type Treatment Note Visit Start Time 09:55 Visit Stop Time 10:33 Total Visit Minutes 38 Visit Number 8 Evaluation Information Evaluation Date 12/20/21 PT-OP-B Current Condition Start: 12/19/21 16:19 Freq: Status: Active Protocol: Document 12/20/21 13:44 SAK (Rec: 12/20/21 14:36 SAK [id number]) Current Condition History of Current Condition Onset Date 12 years ago shoulder Current Complaints right shoulder dysfunction, left hip pain History of Current Condition Thinks injured right shoulder while removing amina, jamming his shoulder. 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 If not doing anything really physical sometimes it feels and works fine. Patient is left handed. Was going to come for PT, then Covid happened. History of 3 ankle sprains with swelling right LE. 1 month ago reports onset of left hip pain, possibly due to compensation with his walking . Reports sharp, stabbing, and burning pain left hip/low back, feels like it is going to cut off his legs, almost causing him to fall. States he is heavier than he ever has been. Prior Treatments and Tests No x-ray or MRI yet Prior Functional Status Baseline Function- ADL's Independent Baseline Function- Mobility Independent Baseline Function- Gait no difficulty Baseline Function- Work/School no difficulty Current Functional Impairments (Reported) Functional Limitations- ADL's Hip pain interrupts sleep, pain with bending, lifting, walking, sharp stabbing pain with sit to stand, pain with standing and holding grandkids : fire down his thighs. If sleeps wrong on right UE can't use arm Functional Limitations- Mobility/Gait limps Functional Limitations- Recreation/ playing with grandkids painful Hobbies Personal Factors Other Personal Factors That May Effect obesity; patient is 7, 280 Therapy/Recovery lbs PT-OP-C Subjective Start: 12/19/21 16:19 Freq: Status: Active Protocol: Document 01/15/22 09:55 LRN (Rec: 01/15/22 10:35 LRN [id number]) OP-PT Subjective Patient Comments Patient Comments States had a little numbing in R thigh over weekend, no burning. Had no pain in L SIJ . 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 PT-OP-G Mobility & Gait Start: 12/19/21 16:19 Freq: Status: Active Protocol: Document 12/20/21 13:44 SAK (Rec: 12/23/21 08:55 SAK [id number]) OP Mobility Evaluation Transfers Sit to Stand painful Functional Movements Squats painful OP Gait Assessment Gait Gait Assistance Required: Independent Assistive Devices Assistive Device None Gait Deviations General Gait Pattern Wide Based Gait Factors Limiting Gait Function Factors Limiting Gait Function Decreased Strength,Pain Comments Gait Comments excess ER bilateral LE's left greater than right PT-OP-H Neuro Start: 12/19/21 16:19 Freq: Status: Active Protocol: Document 12/20/21 13:44 SAK (Rec: 12/23/21 08:55 SAK [id number]) Sensation Evaluation Gross Sensation Gross Sensation Right UE Impaired Sensation Description Paresthesia Comments Summary Comments Intact to LT bilateral UE's and LE's PT-OP-J Posture/Palpation/Skin Start: 12/19/21 16:19 Freq: Status: Active Protocol: Document 12/20/21 13:44 SAK (Rec: 12/23/21 08:55 SAK [id number]) Posture Evaluation Position Standing Head/C-Spine Posture Forward Head T-Spine Posture Increased Kyphosis L-Spine Posture Increased Lordosis Shoulder Posture (L) Rounded,(R) Rounded Scapula Posture (L) Protracted,(R) Protracted Arm Posture (L) Internally Rotated,(R) Internally Rotated Weight Distribution Weight Shifted Right Palpation Assessment Location left piriformis Palpation Findings Tenderness left greater trochanter Palpation Findings Tenderness left SI Palpation Findings Tenderness right shoulder Palpation Findings None/Normal PT-OP-K Range of Motion Start: 12/19/21 16:19 Freq: Status: Active Protocol: Document 12/20/21 13:44 SAK (Rec: 12/23/21 08:55 SAK [id number]) Cervical Spine Range of Motion Cervical Spine Active Comments WNL Lumbar Spine Range of Motion Lumbar Spine Active Flexion 25 Extension 15 Rotation Left 20 Rotation Right 20 Lateral Flexion Left 15 Lateral Flexion Right 15 ROM Limitations Pain Comments reported pain with all motions Shoulder Goniometric Range of Motion Shoulder Right Shoulder ROM WFL Yes Flexion 180 Extension 95 Abduction 180 External Rotation at 45 degrees 95 Abduction Internal Rotation Behind Back (text) T10 Left Shoulder ROM WFL Yes Flexion 180 Extension 40 Abduction 180 External Rotation at 90 degrees 85 Abduction Internal Rotation Behind Back (text) T10 Hip Goniometric Range of Motion Hip Left Flexion w/Knee Flexed 105 Straight Leg Raise 50 Extension 5 Abduction 25 Internal Rotation 10 External Rotation 30 Right Flexion w/Knee Flexed 100 Straight Leg Raise 65 Extension 5 Abduction 25 Internal Rotation 10 External Rotation 35 Hip ROM Limitations Hip ROM Limitations Soft Tissue Tightness,Pain PT-OP-M Strength Start: 12/19/21 16:19 Freq: Status: Active Protocol: Document 01/08/22 09:47 LRN (Rec: 01/08/22 10:33 LRN [id number]) Ankle/Foot Strength Ankle and Foot Manual Muscle Testing Right Dorsiflexion (L4) 4+ Good+ Plantarflexion (S1) 5 Normal Inversion 4+ Good+ Eversion (S1) 4+ Good+ Left Dorsiflexion (L4) 5 Normal Plantarflexion (S1) 5 Normal Inversion 5 Normal Eversion (S1) 5 Normal PT-OP-Q Treatments Start: 12/19/21 16:19 Freq: Status: Active Protocol: Document 01/15/22 09:55 LRN (Rec: 01/15/22 10:35 LRN [id number]) Cardio Equipment Bicycle (Upright) Duration (Minutes) 6 Resistance 6 Seat Position 5 Other Speed > 70 Therapeutic Exercises Supine Exercises Lat Pull down Supine Exercise Name Lat PUll down Side bilateral Equipment Used 4#, Lev 4 TB Reps/Minutes 10' Comments Cuing for scap depression, TA tight, neutral spine Standing Exercises Scapular Depresion Standing Exercise Name Scapular Depression (L>R) awareness/training. Side bilateral Equipment Used Mirror, wall, phy cuing. Reps/Minutes 9' Comments Much cuing at Abdomen, and scapula Scapular protraction Standing Exercise Name Scapular protraction Side bilateral Equipment Used Lev 4 Reps/Minutes 15x 2 Comments Cuing for scap protraction/TA to keep from leaning forward Serratus wall slide Standing Exercise Name Forearms on wall, TB around wrists for shldr flex Side bilateral Reps/Minutes 15x 2 Shoulder ER strengthening Standing Exercise Name Shoulder ER strengthening Side bilateral Equipment Used Lev 4 TB Reps/Minutes 10x 2 Comments Cuing for TA & proper upper body posture Shoulder IR strengthening Standing Exercise Name Shoulder IR strengthening Side right Equipment Used Lev 4 TB Reps/Minutes 15x 2 Comments Cuing for TA & proper upper body posture PT-OP-R Modalities Start: 12/19/21 16:19 Freq: Status: Active Protocol: Document 12/20/21 13:44 SAK (Rec: 12/20/21 15:37 SAK [id number]) Hot Pack/Cold Pack Treatment Cold Pack Location lumbar spine and SI Patient Position Hooklying Treatment Duration (minutes) 10 Patient Tolerance Good Comments strap around distal thighs for LE support in neutral position PT-OP-T Assessment and Plan Start: 12/19/21 16:19 Freq: Status: Active Protocol: Document 01/15/22 09:55 LRN (Rec: 01/15/22 10:35 LRN [id number]) Physical Therapy Assessment Goals Four Impairment Quickdash UE disability index score 20% Splitting Machine Feeder Goal (LTG) Improve Quickdash score to no greater than 5% as measure of improved UE function LTG Duration 03/23/22 Three Impairment lower extremity functional ( LEFS) scale 60% Skilled Nursing Goal (LTG) Improve LEFS score to at least 80% as measure of improved LE function LTG Duration 03/23/22 Two Impairment right shoulder dysfunction Impairment numbness and inability to use for prolonged period if sleeps on right side with pain as high as 7/10. Short Term Goal (STG) Patient to be able to modify his sleep patterns to not sleep on right side, and will be instructed in HEP for purposes of strengthening and stabilization. (01/11/22: Sometimes has numbness in R arm, but no pain ) Splitting Machine Feeder Goal (LTG) Patient to be independent with HEP for right shoulder strengthening and stabilization and report improved right shoulder function with minimal to no incidences of right shoulder pain and inability to use. LTG Duration 03/23/22 One Impairment pain lumbar spine left SI and hip as high as 7/10 Short Term Goal (STG) Decrease pain to no greater than 4/10 with 50% reduction in radicular symptoms (01/08/22: LBP/L SIJ varable onset of pain). (01/11/22: LBP/L SIJ pain 3-4/ 10 twice this past week) STG Duration 01/25/22 (01/11/22: MET GOAL) Splitting Machine Feeder Goal (LTG) Patient to report pain no greater than 2/10 with all usual activities including standing and holding his grandkids and moving from sit to stand LTG Duration 03/23/22 Assessment Summary Assessment Pt has poor awareness of core with excessive lumbar ext with activities from lack of TA tightening. Pt improved in awareness today with use of mirror for visual feedback during standing lat pull down ex. Further core stab needed. R shoulder strengthening is without complaints of pain. Pt needs much cuing to keep from elevating shoulders and for core tightening during shoulder exercises. Physical Therapy Plan Frequency and Duration Frequency of Treatment 2x/Week Duration of Treatment 12 weeks Plan of Care Start Date 12/20/21 Plan of Care End Date 03/23/22 Next Visit Focus/Plan Next Note Type Treatment Note Next Visit Plan Assess if R shoulder limiting sleep. Review new HEP: seated HS stretch. Review ankle ex's and eval right ankle AROM. Progress upright bike to 10' ex, monitor posture. Try single BKFO with resistance, Pelvic stab vs realignment exercises due to pt self mobilized. Progress R shoulder stabilization ex, add shoulder AD strengthening (Serratus, ? ext),
--- NOTE | 2022-01-18 11:05 | PT.OTN ---
Current Diagnoses Other chronic pain (01/18/22) Pain in right shoulder (01/18/22) Pain in right ankle and joints of right foot (01/18/22) Myalgia, other site (01/18/22) Physical Therapy Treatment Note PT-OP-A Visit Information Start: 12/19/21 16:19 Freq: Status: Active Protocol: Document 01/18/22 09:49 LRN (Rec: 01/18/22 10:42 LRN [id number]) Out-Patient Physical Therapy Visit Information Visit Information Visit Type Treatment Note Visit Start Time 09:49 Visit Stop Time 10:31 Total Visit Minutes 42 Visit Number 04/06 Evaluation Information Evaluation Date 12/20/21 PT-OP-B Current Condition Start: 12/19/21 16:19 Freq: Status: Active Protocol: Document 12/20/21 13:44 SAK (Rec: 12/20/21 14:36 SAK [id number]) Current Condition History of Current Condition Onset Date 12 years ago shoulder Current Complaints right shoulder dysfunction, left hip pain History of Current Condition Thinks injured right shoulder while removing amina, jamming his shoulder. 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 If not doing anything really physical sometimes it feels and works fine. Patient is left handed. Was going to come for PT, then Covid happened. History of 3 ankle sprains with swelling right LE. 1 month ago reports onset of left hip pain, possibly due to compensation with his walking . Reports sharp, stabbing, and burning pain left hip/low back, feels like it is going to cut off his legs, almost causing him to fall. States he is heavier than he ever has been. Prior Treatments and Tests No x-ray or MRI yet Prior Functional Status Baseline Function- ADL's Independent Baseline Function- Mobility Independent Baseline Function- Gait no difficulty Baseline Function- Work/School no difficulty Current Functional Impairments (Reported) Functional Limitations- ADL's Hip pain interrupts sleep, pain with bending, lifting, walking, sharp stabbing pain with sit to stand, pain with standing and holding grandkids : fire down his thighs. If sleeps wrong on right UE can't use arm Functional Limitations- Mobility/Gait limps Functional Limitations- Recreation/ playing with grandkids painful Hobbies Personal Factors Other Personal Factors That May Effect obesity; patient is [age], 89 Therapy/Recovery lbs PT-OP-C Subjective Start: 12/19/21 16:19 Freq: Status: Active Protocol: Document 01/18/22 09:49 LRN (Rec: 01/18/22 10:42 LRN [id number]) OP-PT Subjective Patient Comments Patient Comments Little bit of irritaiton in the L SIJ (before SIJ popped), used ice and it helped take the irritation away. Same pain but not as long. He has been more active, walking more (3-4x), and after being on ex bike last session. [place] a little light pop in the L SIJ after last session at home while doing a standing PPT. When he moved hip in way he could pop the hip and he felt he didn't have to pop it. It was a good pop. Has popped 6-8 times in past 4-6 yrs. R shoulder doesn't bother his sleeping much at all. Today he had some numbness because of animal causing mispositioning. Patient Questionnaires Quick Dash- Upper Extremity Quick Dash UE Score 4.54 Quick Dash UE Impairment 1 to 19% Impaired (Score 1-19) PT-OP-G Mobility & Gait Start: 12/19/21 16:19 Freq: Status: Active Protocol: Document 12/20/21 13:44 [facility] (Rec: 12/23/21 08:55 [facility] [id number]) OP Mobility Evaluation Transfers Sit to Stand painful Functional Movements Squats painful OP Gait Assessment Gait Gait Assistance Required: Independent Assistive Devices Assistive Device None Gait Deviations General Gait Pattern Wide Based Gait Factors Limiting Gait Function Factors Limiting Gait Function Decreased Strength,Pain Comments Gait Comments excess ER bilateral LE's left greater than right PT-OP-H Neuro Start: 12/19/21 16:19 Freq: Status: Active Protocol: Document 12/20/21 13:44 [facility] (Rec: 12/23/21 08:55 [facility] [id number]) Sensation Evaluation Gross Sensation Gross Sensation Right UE Impaired Sensation Description Paresthesia Comments Summary Comments Intact to LT bilateral UE's and LE's PT-OP-J Posture/Palpation/Skin Start: 12/19/21 16:19 Freq: Status: Active Protocol: Document 12/20/21 13:44 SAK (Rec: 12/23/21 08:55 SAK [id number]) Posture Evaluation Position Standing Head/C-Spine Posture Forward Head T-Spine Posture Increased Kyphosis L-Spine Posture Increased Lordosis Shoulder Posture (L) Rounded,(R) Rounded Scapula Posture (L) Protracted,(R) Protracted Arm Posture (L) Internally Rotated,(R) Internally Rotated Weight Distribution Weight Shifted Right Palpation Assessment Location left piriformis Palpation Findings Tenderness left greater trochanter Palpation Findings Tenderness left SI Palpation Findings Tenderness right shoulder Palpation Findings None/Normal PT-OP-K Range of Motion Start: 12/19/21 16:19 Freq: Status: Active Protocol: Document 01/18/22 09:49 LRN (Rec: 01/18/22 10:42 LRN [id number]) Ankle and Foot Goniometric Range of Motion Ankle and Foot Right Active Testing Position Supine Dorsiflexion with Knee Extended 10 Plantarflexion 48 Inversion 30 Eversion 15 Left Active Testing Position Supine Dorsiflexion with Knee Extended 10 Plantarflexion 48 Inversion 35 Eversion 20 PT-OP-M Strength Start: 12/19/21 16:19 Freq: Status: Active Protocol: Document 01/08/22 09:47 LRN (Rec: 01/08/22 10:33 LRN [id number]) Ankle/Foot Strength Ankle and Foot Manual Muscle Testing Right Dorsiflexion (L4) 4+ Good+ Plantarflexion (S1) 5 Normal Inversion 4+ Good+ Eversion (S1) 4+ Good+ Left Dorsiflexion (L4) 5 Normal Plantarflexion (S1) 5 Normal Inversion 5 Normal Eversion (S1) 5 Normal PT-OP-Q Treatments Start: 12/19/21 16:19 Freq: Status: Active Protocol: Document 01/18/22 09:49 LRN (Rec: 01/18/22 10:42 LRN [id number]) Cardio Equipment Bicycle (Upright) Duration (Minutes) 8 Resistance 7 Seat Position 5 Other Speed > 70-80, started out 88 rpm Therapeutic Exercises Supine Exercises Ankle AROM Supine Exercise Name Ankle AROM (PF,DR, EV, IV) Side bilateral Comments ROM taken BKFO-single leg Supine Exercise Name BKFO-single leg Side bilateral Equipment Used Lev 3 TB Reps/Minutes 15x Comments Extra time to get stab with R BKFO due to L pelvic rot weakness BKFO Supine Exercise Name Blas Bent Knee Fall Out Side bilateral Reps/Minutes 30x Comments TrA focus. End range of R knee out pelvis rotates R ( weak pelvic L rot) Sitting Exercises R ankle EV stretch Sitting Exercise Name R ankle EV stretch (TA tight/ ankle over knee) Side right Reps/Minutes 10 SH x 10 Comments Extra time to determine max stretch position to protect L SIJ with stretch Ankle strengthening Sitting Exercise Name EV, IV, DF Side bilateral Equipment Used LEV 3 TBand Reps/Minutes 15x Hamstring stretch Sitting Exercise Name Long-sit Hamstring stretch, arms propping back Side bilateral Reps/Minutes 3' Comments Extra time to determine max proper stretch position PT-OP-R Modalities Start: 12/19/21 16:19 Freq: Status: Active Protocol: Document 12/20/21 13:44 SAK (Rec: 12/20/21 15:37 SAK [id number]) Hot Pack/Cold Pack Treatment Cold Pack Location lumbar spine and SI Patient Position Hooklying Treatment Duration (minutes) 10 Patient Tolerance Good Comments strap around distal thighs for LE support in neutral position PT-OP-T Assessment and Plan Start: 12/19/21 16:19 Freq: Status: Active Protocol: Document 01/18/22 09:49 LRN (Rec: 01/18/22 10:42 LRN [id number]) Physical Therapy Assessment Goals Four Impairment Quickdash UE disability index score 20% Detention Goal (LTG) Improve Quickdash score to no greater than 5% as measure of improved UE function (01/18/22: Quickdash score of 4 .54) LTG Duration 03/23/22 (01/18/22: MET GOAL) Three Impairment lower extremity functional ( LEFS) scale 60% Detention Goal (LTG) Improve LEFS score to at least 80% as measure of improved LE function LTG Duration 03/23/22 Two Impairment right shoulder dysfunction Impairment numbness and inability to use for prolonged period if sleeps on right side with pain as high as 7/10. Short Term Goal (STG) Patient to be able to modify his sleep patterns to not sleep on right side, and will be instructed in HEP for purposes of strengthening and stabilization. (01/11/22: Sometimes has numbness in R arm, but no pain ) STG Duration (01/18/22: MET GOAL) Staffing Branch Manager Goal (LTG) Patient to be independent with HEP for right shoulder strengthening and stabilization and report improved right shoulder function with minimal to no incidences of right shoulder pain and inability to use. LTG Duration 03/23/22 One Impairment pain lumbar spine left SI and hip as high as 7/10 Short Term Goal (STG) Decrease pain to no greater than 4/10 with 50% reduction in radicular symptoms (01/08/22: LBP/L SIJ varable onset of pain). (01/11/22: LBP/L SIJ pain 3-4/ 10 twice this past week) STG Duration 01/25/22 (01/11/22: MET GOAL) Staffing Branch Manager Goal (LTG) Patient to report pain no greater than 2/10 with all usual activities including standing and holding his grandkids and moving from sit to stand LTG Duration 03/23/22 Progress Towards Goals Progress Comments Less R shoulder pain with sleeping. Goal #4 MET. UE Quickdash score is 4.54. Assessment Summary Assessment Pt R shoulder is not limiting sleep because he has modified to not sleep on the R shoulder . He is gradually starting to sleep on it again with 1x return of numbness/tingling. Pt was rounding back with sitting HS stretch, but was able to keep back straight to get a more isolated HS stretch after education/training. Pt has limited R ankle EV/IV mobility compared to the L ankle. He has good recall of ankle strengthening exercises. He shows weakness with pelvic L rot during BKFO & R BKFO, but better awareness after training of exercise. Physical Therapy Plan Frequency and Duration Frequency of Treatment 2x/Week Duration of Treatment 12 weeks Plan of Care Start Date 12/20/21 Plan of Care End Date 03/23/22 Next Visit Focus/Plan Next Note Type Treatment Note Next Visit Plan No more visits scheduled; therefore pt will be seen 2x/ week, or as scheduling permits . Progress upright bike to 10' ex, monitor posture. Assess single BKFO with resistance for core stab, Pelvic stab w/realignment of L SIJ through self mob. Progress R shoulder stabilization ex, add shoulder AD strengthening (Serratus, ? ext),
--- NOTE | 2022-01-28 12:25 | PT.OTN ---
Current Diagnoses Other chronic pain (01/28/22) Pain in right shoulder (01/28/22) Pain in right ankle and joints of right foot (01/28/22) Myalgia, other site (01/28/22) Physical Therapy Treatment Note PT-OP-A Visit Information Start: 12/19/21 16:19 Freq: Status: Active Protocol: Document 01/28/22 08:51 LRN (Rec: 01/28/22 12:24 LRN [id number]) Out-Patient Physical Therapy Visit Information Visit Information Visit Type Treatment Note Visit Start Time 10:37 Visit Stop Time 11:23 Total Visit Minutes 46 Visit Number 05/06 Evaluation Information Evaluation Date 12/20/21 PT-OP-B Current Condition Start: 12/19/21 16:19 Freq: Status: Active Protocol: Document 12/20/21 13:44 SAK (Rec: 12/20/21 14:36 SAK [id number]) Current Condition History of Current Condition Onset Date 12 years ago shoulder Current Complaints right shoulder dysfunction, left hip pain History of Current Condition Thinks injured right shoulder while removing amina, jamming his shoulder. 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 If not doing anything really physical sometimes it feels and works fine. Patient is left handed. Was going to come for PT, then Covid happened. History of 3 ankle sprains with swelling right LE. 1 month ago reports onset of left hip pain, possibly due to compensation with his walking . Reports sharp, stabbing, and burning pain left hip/low back, feels like it is going to cut off his legs, almost causing him to fall. States he is heavier than he ever has been. Prior Treatments and Tests No x-ray or MRI yet Prior Functional Status Baseline Function- ADL's Independent Baseline Function- Mobility Independent Baseline Function- Gait no difficulty Baseline Function- Work/School no difficulty Current Functional Impairments (Reported) Functional Limitations- ADL's Hip pain interrupts sleep, pain with bending, lifting, walking, sharp stabbing pain with sit to stand, pain with standing and holding grandkids : fire down his thighs. If sleeps wrong on right UE can't use arm Functional Limitations- Mobility/Gait limps Functional Limitations- Recreation/ playing with grandkids painful Hobbies Personal Factors Other Personal Factors That May Effect obesity; patient is [birth year]19, 89 Therapy/Recovery lbs PT-OP-C Subjective Start: 12/19/21 16:19 Freq: Status: Active Protocol: Document 01/28/22 08:51 LRN (Rec: 01/28/22 12:24 LRN [id number]) OP-PT Subjective Patient Comments Patient Comments States since he was last in he has had L hip pain once. His has had covid but he has been negative the entire time. Ankle has been doing pretty good. R arm sometimes numb and painful sleeping. Patient Questionnaires Lower Extremity Functional Scale LEFS Score 76 LEFS Impairment 1 to 19% Impaired (Score 63-79 ) PT-OP-G Mobility & Gait Start: 12/19/21 16:19 Freq: Status: Active Protocol: Document 12/20/21 13:44 SAK (Rec: 12/23/21 08:55 [facility] [id number]) OP Mobility Evaluation Transfers Sit to Stand painful Functional Movements Squats painful OP Gait Assessment Gait Gait Assistance Required: Independent Assistive Devices Assistive Device None Gait Deviations General Gait Pattern Wide Based Gait Factors Limiting Gait Function Factors Limiting Gait Function Decreased Strength,Pain Comments Gait Comments excess ER bilateral LE's left greater than right PT-OP-H Neuro Start: 12/19/21 16:19 Freq: Status: Active Protocol: Document 12/20/21 13:44 SAK (Rec: 12/23/21 08:55 [facility] [id number]) Sensation Evaluation Gross Sensation Gross Sensation Right UE Impaired Sensation Description Paresthesia Comments Summary Comments Intact to LT bilateral UE's and LE's PT-OP-J Posture/Palpation/Skin Start: 12/19/21 16:19 Freq: Status: Active Protocol: Document 12/20/21 13:44 SAK (Rec: 12/23/21 08:55 [facility] [id number]) Posture Evaluation Position Standing Head/C-Spine Posture Forward Head T-Spine Posture Increased Kyphosis L-Spine Posture Increased Lordosis Shoulder Posture (L) Rounded,(R) Rounded Scapula Posture (L) Protracted,(R) Protracted Arm Posture (L) Internally Rotated,(R) Internally Rotated Weight Distribution Weight Shifted Right Palpation Assessment Location left piriformis Palpation Findings Tenderness left greater trochanter Palpation Findings Tenderness left SI Palpation Findings Tenderness right shoulder Palpation Findings None/Normal PT-OP-K Range of Motion Start: 12/19/21 16:19 Freq: Status: Active Protocol: Document 01/18/22 09:49 LRN (Rec: 01/18/22 10:42 LRN [id number]) Ankle and Foot Goniometric Range of Motion Ankle and Foot Right Active Testing Position Supine Dorsiflexion with Knee Extended 10 Plantarflexion 48 Inversion 30 Eversion 15 Left Active Testing Position Supine Dorsiflexion with Knee Extended 10 Plantarflexion 48 Inversion 35 Eversion 20 PT-OP-M Strength Start: 12/19/21 16:19 Freq: Status: Active Protocol: Document 01/08/22 09:47 LRN (Rec: 01/08/22 10:33 LRN [id number]) Ankle/Foot Strength Ankle and Foot Manual Muscle Testing Right Dorsiflexion (L4) 4+ Good+ Plantarflexion (S1) 5 Normal Inversion 4+ Good+ Eversion (S1) 4+ Good+ Left Dorsiflexion (L4) 5 Normal Plantarflexion (S1) 5 Normal Inversion 5 Normal Eversion (S1) 5 Normal PT-OP-Q Treatments Start: 12/19/21 16:19 Freq: Status: Active Protocol: Document 01/28/22 08:51 LRN (Rec: 01/28/22 12:24 LRN [id number]) Cardio Equipment Bicycle (Upright) Duration (Minutes) 8 Resistance 7 Seat Position 5 Other Speed > 70-80, started out 88 rpm Therapeutic Exercises Supine Exercises BKFO-single leg Supine Exercise Name BKFO-single leg Side bilateral Equipment Used Lev 3 TB Reps/Minutes 15x 2 Comments Extra time to get stab with R BKFO due to L pelvic rot weakness Lat Pull down Supine Exercise Name Lat PUll down Side bilateral Equipment Used 4#, Lev 4 TB Reps/Minutes 15x 2 Comments Cuing for scap depression, TA tight, neutral spine Scapular protraction Supine Exercise Name Scapular Protraction Bridge Supine Exercise Name TA w/neutral spine (ns)/Bridge Reps/Minutes 15x 2 Comments Cuing to lift higher with bridge Sitting Exercises R ankle EV stretch Sitting Exercise Name R ankle EV stretch (TA tight/ ankle over knee) Side right Reps/Minutes 10 SH x 10 Comments Extra time for review of stretch position to protect L SIJ with stretch Hamstring stretch Sitting Exercise Name Long-sit Hamstring stretch, arms propping back & ankle pumps Side bilateral Reps/Minutes 3' Comments Cuing for proper stretch position Standing Exercises Serratus wall slide Standing Exercise Name Forearms on wall, TB around wrists for shldr flex Side bilateral Reps/Minutes 15x 2 Shoulder ER strengthening Standing Exercise Name Shoulder ER strengthening Side bilateral Equipment Used Lev 4 TB Reps/Minutes 10x 2 Comments Cuing for TA & proper upper body posture Shoulder IR strengthening Standing Exercise Name Shoulder IR strengthening Side right Equipment Used Lev 4 TB Reps/Minutes 15x 2 Comments Cuing for TA & proper upper body posture PT-OP-R Modalities Start: 12/19/21 16:19 Freq: Status: Active Protocol: Document 12/20/21 13:44 SAK (Rec: 12/20/21 15:37 SAK [id number]) Hot Pack/Cold Pack Treatment Cold Pack Location lumbar spine and SI Patient Position Hooklying Treatment Duration (minutes) 10 Patient Tolerance Good Comments strap around distal thighs for LE support in neutral position PT-OP-T Assessment and Plan Start: 12/19/21 16:19 Freq: Status: Active Protocol: Document 01/28/22 08:51 LRN (Rec: 01/28/22 12:24 LRN [id number]) Physical Therapy Assessment Goals Four Impairment Quickdash UE disability index score 20% Chief Engineer Drilling And Recovery Goal (LTG) Improve Quickdash score to no greater than 5% as measure of improved UE function (01/18/22: Quickdash score of 4 .54) LTG Duration 03/23/22 (01/18/22: MET GOAL) Three Impairment lower extremity functional ( LEFS) scale 60% Chief Engineer Drilling And Recovery Goal (LTG) Improve LEFS score to at least 80% as measure of improved LE function. (01/28/22: LEFS score is 76) LTG Duration 03/23/22 (01/28/22: Progressing ) Two Impairment right shoulder dysfunction Impairment numbness and inability to use for prolonged period if sleeps on right side with pain as high as 7/10. Short Term Goal (STG) Patient to be able to modify his sleep patterns to not sleep on right side, and will be instructed in HEP for purposes of strengthening and stabilization. (01/11/22: Sometimes has numbness in R arm, but no pain ) STG Duration (01/18/22: MET GOAL) Usp Goal (LTG) Patient to be independent with HEP for right shoulder strengthening and stabilization and report improved right shoulder function with minimal to no incidences of right shoulder pain and inability to use. LTG Duration 03/23/22 (01/28/22: Sometimes has numbness in R arm) One Impairment pain lumbar spine left SI and hip as high as 7/10 Short Term Goal (STG) Decrease pain to no greater than 4/10 with 50% reduction in radicular symptoms (01/08/22: LBP/L SIJ varable onset of pain). (01/11/22: LBP/L SIJ pain 3-4/ 10 twice this past week) STG Duration 01/25/22 (01/11/22: MET GOAL) Usp Goal (LTG) Patient to report pain no greater than 2/10 with all usual activities including standing and holding his grandkids and moving from sit to stand. (01/28/22: States he has 0/10 pain in the low back and 1x pain in the L hip since last session). LTG Duration 03/23/22 (01/28/22: Improving) Assessment Summary Assessment Pt pain has decreased because he has not been exercising due to Covid illness in the home. Fairly good control with single BKFO with resistance for core stab. His LE function is 76% as measured by LEFS score of 76 (1-19% impaired, scores 63-79) Physical Therapy Plan Frequency and Duration Frequency of Treatment 2x/Week Duration of Treatment 12 weeks Plan of Care Start Date 12/20/21 Plan of Care End Date 03/23/22 Next Visit Focus/Plan Next Note Type Treatment Note Next Visit Plan 1-2x/week as pt able to be on schedule. Upright bike to 10' ex, monitor posture. Pelvic stab w/realignment of L SIJ through self mob. Progress R shoulder stabilization ex, add shoulder AD strengthening (Serratus, ? ext). Strength for return to work
--- NOTE | 2022-02-08 09:00 | PT.OTN ---
Current Diagnoses Other chronic pain (02/08/22) Pain in right shoulder (02/08/22) Pain in right ankle and joints of right foot (02/08/22) Myalgia, other site (02/08/22) Physical Therapy Treatment Note PT-OP-A Visit Information Start: 12/19/21 16:19 Freq: Status: Active Protocol: Document 02/08/22 08:22 SP (Rec: 02/08/22 09:12 SP [id number]) Out-Patient Physical Therapy Visit Information Visit Information Visit Type Treatment Note Visit Note ANGELITA Aiken attended tx with permission of pt, observe only . Visit Start Time 08:20 Visit Stop Time 09:00 Total Visit Minutes 40 Visit Number 06/06 Number of SHIFT LEADER Visits 1 Evaluation Information Evaluation Date 12/20/21 PT-OP-B Current Condition Start: 12/19/21 16:19 Freq: Status: Active Protocol: Document 12/20/21 13:44 SAK (Rec: 12/20/21 14:36 SAK [id number]) Current Condition History of Current Condition Onset Date 12 years ago shoulder Current Complaints right shoulder dysfunction, left hip pain History of Current Condition Thinks injured right shoulder while removing amina, jamming his shoulder. 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 If not doing anything really physical sometimes it feels and works fine. Patient is left handed. Was going to come for PT, then Covid happened. History of 3 ankle sprains with swelling right LE. 1 month ago reports onset of left hip pain, possibly due to compensation with his walking . Reports sharp, stabbing, and burning pain left hip/low back, feels like it is going to cut off his legs, almost causing him to fall. States he is heavier than he ever has been. Prior Treatments and Tests No x-ray or MRI yet Prior Functional Status Baseline Function- ADL's Independent Baseline Function- Mobility Independent Baseline Function- Gait no difficulty Baseline Function- Work/School no difficulty Current Functional Impairments (Reported) Functional Limitations- ADL's Hip pain interrupts sleep, pain with bending, lifting, walking, sharp stabbing pain with sit to stand, pain with standing and holding grandkids : fire down his thighs. If sleeps wrong on right UE can't use arm Functional Limitations- Mobility/Gait limps Functional Limitations- Recreation/ playing with grandkids painful Hobbies Personal Factors Other Personal Factors That May Effect obesity; patient is 7, 280 Therapy/Recovery lbs PT-OP-C Subjective Start: 12/19/21 16:19 Freq: Status: Active Protocol: Document 02/08/22 08:22 SP (Rec: 02/08/22 09:12 SP [id number]) OP-PT Subjective Patient Comments Patient Comments Pt stated has had some little numbness in R quad but states much better than the burning used to get in past, seeing improvement. Pt states has been trying to increase reps and or resistance depending on day. PT-OP-G Mobility & Gait Start: 12/19/21 16:19 Freq: Status: Active Protocol: Document 12/20/21 13:44 SAK (Rec: 12/23/21 08:55 SAK [id number]) OP Mobility Evaluation Transfers Sit to Stand painful Functional Movements Squats painful OP Gait Assessment Gait Gait Assistance Required: Independent Assistive Devices Assistive Device None Gait Deviations General Gait Pattern Wide Based Gait Factors Limiting Gait Function Factors Limiting Gait Function Decreased Strength,Pain Comments Gait Comments excess ER bilateral LE's left greater than right PT-OP-H Neuro Start: 12/19/21 16:19 Freq: Status: Active Protocol: Document 12/20/21 13:44 SAK (Rec: 12/23/21 08:55 SAK [id number]) Sensation Evaluation Gross Sensation Gross Sensation Right UE Impaired Sensation Description Paresthesia Comments Summary Comments Intact to LT bilateral UE's and LE's PT-OP-J Posture/Palpation/Skin Start: 12/19/21 16:19 Freq: Status: Active Protocol: Document 12/20/21 13:44 SAK (Rec: 12/23/21 08:55 [facility] [id number]) Posture Evaluation Position Standing Head/C-Spine Posture Forward Head T-Spine Posture Increased Kyphosis L-Spine Posture Increased Lordosis Shoulder Posture (L) Rounded,(R) Rounded Scapula Posture (L) Protracted,(R) Protracted Arm Posture (L) Internally Rotated,(R) Internally Rotated Weight Distribution Weight Shifted Right Palpation Assessment Location left piriformis Palpation Findings Tenderness left greater trochanter Palpation Findings Tenderness left SI Palpation Findings Tenderness right shoulder Palpation Findings None/Normal PT-OP-K Range of Motion Start: 12/19/21 16:19 Freq: Status: Active Protocol: Document 01/18/22 09:49 LRN (Rec: 01/18/22 10:42 LRN [id number]) Ankle and Foot Goniometric Range of Motion Ankle and Foot Right Active Testing Position Supine Dorsiflexion with Knee Extended 10 Plantarflexion 48 Inversion 30 Eversion 15 Left Active Testing Position Supine Dorsiflexion with Knee Extended 10 Plantarflexion 48 Inversion 35 Eversion 20 PT-OP-M Strength Start: 12/19/21 16:19 Freq: Status: Active Protocol: Document 01/08/22 09:47 LRN (Rec: 01/08/22 10:33 LRN [id number]) Ankle/Foot Strength Ankle and Foot Manual Muscle Testing Right Dorsiflexion (L4) 4+ Good+ Plantarflexion (S1) 5 Normal Inversion 4+ Good+ Eversion (S1) 4+ Good+ Left Dorsiflexion (L4) 5 Normal Plantarflexion (S1) 5 Normal Inversion 5 Normal Eversion (S1) 5 Normal PT-OP-Q Treatments Start: 12/19/21 16:19 Freq: Status: Active Protocol: Document 02/08/22 08:22 SP (Rec: 02/08/22 09:12 SP [id number]) Cardio Equipment Bicycle (Upright) Duration (Minutes) 10 Resistance 7>10 Seat Position 7 Other Speed 81-89, Levl 10 able maintain 86PRM last 2 min pnfree, gd pelvis aligm Therapeutic Exercises Supine Exercises BKFO-single leg Supine Exercise Name BKFO-single leg Side bilateral Resistance Lev 3>4 TB Equipment Used cued hands side hips on table feedback pelvic stab Reps/Minutes 15x 2 Comments CUed slow range to allow decrease pelvic/ hip wobble, impr core/hip stab Lat Pull down Supine Exercise Name Lat PUll down> reviewed standing Side bilateral Equipment Used 4#, Lev 4 TB loop Reps/Minutes 15x 2 Comments Good scap depression, TA tight , neutral spine Bridge Supine Exercise Name TA w/neutral spine (ns)/Bridge Side bilateral Resistance 4TB loop around thighs Reps/Minutes 15x 2 Comments Cued slow range and engaging TA, good linda lift Standing Exercises shld ext Standing Exercise Name added to HEP Resistance Lvl 4 Reps/Minutes x20 Comments occasional cue with better scap depression stab con/ecc Scapular protraction Standing Exercise Name Scapular protraction Side bilateral Equipment Used Lev 4 Reps/Minutes 15x 2 Comments Cuing for scap depression ecc return, slow range Serratus wall slide Standing Exercise Name Forearms on wall, flexion to Y 's off wall Side bilateral Resistance Lev 3 Reps/Minutes 15x 2 Comments Cued for neutral CS, improved low trap fac w/o upper trap recruit Shoulder ER strengthening Standing Exercise Name Shoulder ER strengthening Side bilateral Resistance good TA Equipment Used Lev 4 TB Reps/Minutes 10x 2 Comments cue x1 with mirror self awareness for posturing, elbow maintain 90deg Shoulder IR strengthening Standing Exercise Name Shoulder IR strengthening Side right Resistance good TA Equipment Used Lev 4 TB Reps/Minutes 15x 2 Comments cue x1 with mirror self awareness for posturing, elbow maintain 90deg PT-OP-R Modalities Start: 12/19/21 16:19 Freq: Status: Active Protocol: Document 12/20/21 13:44 SAK (Rec: 12/20/21 15:37 SAK [id number]) Hot Pack/Cold Pack Treatment Cold Pack Location lumbar spine and SI Patient Position Hooklying Treatment Duration (minutes) 10 Patient Tolerance Good Comments strap around distal thighs for LE support in neutral position PT-OP-T Assessment and Plan Start: 12/19/21 16:19 Freq: Status: Active Protocol: Document 02/08/22 08:22 SP (Rec: 02/08/22 09:12 SP [id number]) Physical Therapy Assessment Goals Four Impairment Quickdash UE disability index score 20% Usp Goal (LTG) Improve Quickdash score to no greater than 5% as measure of improved UE function (01/18/22: Quickdash score of 4 .54) LTG Duration 03/23/22 (01/18/22: MET GOAL) Three Impairment lower extremity functional ( LEFS) scale 60% Usp Goal (LTG) Improve LEFS score to at least 80% as measure of improved LE function. (01/28/22: LEFS score is 76) LTG Duration 03/23/22 (01/28/22: Progressing ) Two Impairment right shoulder dysfunction Impairment numbness and inability to use for prolonged period if sleeps on right side with pain as high as 7/10. Short Term Goal (STG) Patient to be able to modify his sleep patterns to not sleep on right side, and will be instructed in HEP for purposes of strengthening and stabilization. (01/11/22: Sometimes has numbness in R arm, but no pain ) STG Duration (01/18/22: MET GOAL) Contract Administration Manager Goal (LTG) Patient to be independent with HEP for right shoulder strengthening and stabilization and report improved right shoulder function with minimal to no incidences of right shoulder pain and inability to use. 02/08/22: added shld ext, serratus press, wall slide to Ys off wall against resistance with no pain, improved scap depression stab. LTG Duration 03/23/22 (02/08/22 progressing) One Impairment pain lumbar spine left SI and hip as high as 7/10 Short Term Goal (STG) Decrease pain to no greater than 4/10 with 50% reduction in radicular symptoms (01/08/22: LBP/L SIJ varable onset of pain). (01/11/22: LBP/L SIJ pain 3-4/ 10 twice this past week) STG Duration 01/25/22 (01/11/22: MET GOAL) Contract Administration Manager Goal (LTG) Patient to report pain no greater than 2/10 with all usual activities including standing and holding his grandkids and moving from sit to stand. (01/28/22: States he has 0/10 pain in the low back and 1x pain in the L hip since last session). LTG Duration 03/23/22 (01/28/22: Improving) Assessment Summary Assessment Pt responded well to HEP review, cues as needed for scap depression serratus return start position. Improved demonstration scap stabilization with pull downs to apply shld ext in standing today against previous resistance. No reports R leg pain/numbness during tx, states responded gets numbness at times but feels improving instances. Physical Therapy Plan Frequency and Duration Frequency of Treatment 2x/Week Duration of Treatment 12 weeks Plan of Care Start Date 12/20/21 Plan of Care End Date 03/23/22 Therapeutic Interventions Therapeutic Interventions Aquatic Therapy,Gait Training, Home Exercise Program,Manual Therapy,Neuromuscular Re- education,Patient/Caregiver Education,Self-Care/Home Management,Soft Tissue Mobilization,Taping, Therapeutic Activities, Therapeutic Exercises Modalities Cold Pack/Ice Massage,Electric Stimulation,Hot Packs, Traction- Mechanical, Ultrasound Next Visit Focus/Plan Next Note Type Treatment Note Next Visit Plan 1-2x/week as pt able to be on schedule. Continue upright bike, monitor. Next tx: inquire numbness R leg/ R shld, recheck Shld ext/ serr press/Ys off wall. Pelvic stab w/realignment of L SIJ through self mob. Progress R shoulder stabilization ex. Strength for return to work
--- NOTE | 2022-02-18 18:06 | PT.OTN ---
Current Diagnoses Other chronic pain (02/18/22) Pain in right shoulder (02/18/22) Pain in right ankle and joints of right foot (02/18/22) Myalgia, other site (02/18/22) Physical Therapy Treatment Note PT-OP-A Visit Information Start: 12/19/21 16:19 Freq: Status: Active Protocol: Document 02/18/22 16:01 NBM (Rec: 02/18/22 18:06 NBM [id number]) Out-Patient Physical Therapy Visit Information Visit Information Visit Type Treatment Note Visit Start Time 16:05 Visit Stop Time 16:50 Total Visit Minutes 45 Visit Number 07/06 Number of [employer] Visits 2 PT-OP-B Current Condition Start: 12/19/21 16:19 Freq: Status: Active Protocol: Document 12/20/21 13:44 SAK (Rec: 12/20/21 14:36 SAK [id number]) Current Condition History of Current Condition Onset Date 12 years ago shoulder Current Complaints right shoulder dysfunction, left hip pain History of Current Condition Thinks injured right shoulder while removing amina, jamming his shoulder. 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 If not doing anything really physical sometimes it feels and works fine. Patient is left handed. Was going to come for PT, then Covid happened. History of 3 ankle sprains with swelling right LE. 1 month ago reports onset of left hip pain, possibly due to compensation with his walking . Reports sharp, stabbing, and burning pain left hip/low back, feels like it is going to cut off his legs, almost causing him to fall. States he is heavier than he ever has been. Prior Treatments and Tests No x-ray or MRI yet Prior Functional Status Baseline Function- ADL's Independent Baseline Function- Mobility Independent Baseline Function- Gait no difficulty Baseline Function- Work/School no difficulty Current Functional Impairments (Reported) Functional Limitations- ADL's Hip pain interrupts sleep, pain with bending, lifting, walking, sharp stabbing pain with sit to stand, pain with standing and holding grandkids : fire down his thighs. If sleeps wrong on right UE can't use arm Functional Limitations- Mobility/Gait limps Functional Limitations- Recreation/ playing with grandkids painful Hobbies Personal Factors Other Personal Factors That May Effect obesity; patient is 7, 280 Therapy/Recovery lbs PT-OP-C Subjective Start: 12/19/21 16:19 Freq: Status: Active Protocol: Document 02/18/22 16:01 NB (Rec: 02/18/22 18:06 NB [id number]) OP-PT Subjective Patient Comments Patient Comments Pt states he overdid it helping friend and felt sore for a few days, but managed the pain in low back and hip by stretching his hamstring. He didn't do his exercises the last few days because of the soreness. Yesterday his R fingertips went numb while playing a video game. His knees want to go out when he squats low. PT-OP-G Mobility & Gait Start: 12/19/21 16:19 Freq: Status: Active Protocol: Document 12/20/21 13:44 SAK (Rec: 12/23/21 08:55 [facility] [id number]) OP Mobility Evaluation Transfers Sit to Stand painful Functional Movements Squats painful OP Gait Assessment Gait Gait Assistance Required: Independent Assistive Devices Assistive Device None Gait Deviations General Gait Pattern Wide Based Gait Factors Limiting Gait Function Factors Limiting Gait Function Decreased Strength,Pain Comments Gait Comments excess ER bilateral LE's left greater than right PT-OP-H Neuro Start: 12/19/21 16:19 Freq: Status: Active Protocol: Document 12/20/21 13:44 SAK (Rec: 12/23/21 08:55 [facility] [id number]) Sensation Evaluation Gross Sensation Gross Sensation Right UE Impaired Sensation Description Paresthesia Comments Summary Comments Intact to LT bilateral UE's and LE's PT-OP-J Posture/Palpation/Skin Start: 12/19/21 16:19 Freq: Status: Active Protocol: Document 12/20/21 13:44 SAK (Rec: 12/23/21 08:55 [facility] [id number]) Posture Evaluation Position Standing Head/C-Spine Posture Forward Head T-Spine Posture Increased Kyphosis L-Spine Posture Increased Lordosis Shoulder Posture (L) Rounded,(R) Rounded Scapula Posture (L) Protracted,(R) Protracted Arm Posture (L) Internally Rotated,(R) Internally Rotated Weight Distribution Weight Shifted Right Palpation Assessment Location left piriformis Palpation Findings Tenderness left greater trochanter Palpation Findings Tenderness left SI Palpation Findings Tenderness right shoulder Palpation Findings None/Normal PT-OP-K Range of Motion Start: 12/19/21 16:19 Freq: Status: Active Protocol: Document 01/18/22 09:49 LRN (Rec: 01/18/22 10:42 LRN [id number]) Ankle and Foot Goniometric Range of Motion Ankle and Foot Right Active Testing Position Supine Dorsiflexion with Knee Extended 10 Plantarflexion 48 Inversion 30 Eversion 15 Left Active Testing Position Supine Dorsiflexion with Knee Extended 10 Plantarflexion 48 Inversion 35 Eversion 20 PT-OP-M Strength Start: 12/19/21 16:19 Freq: Status: Active Protocol: Document 01/08/22 09:47 LRN (Rec: 01/08/22 10:33 LRN [id number]) Ankle/Foot Strength Ankle and Foot Manual Muscle Testing Right Dorsiflexion (L4) 4+ Good+ Plantarflexion (S1) 5 Normal Inversion 4+ Good+ Eversion (S1) 4+ Good+ Left Dorsiflexion (L4) 5 Normal Plantarflexion (S1) 5 Normal Inversion 5 Normal Eversion (S1) 5 Normal PT-OP-Q Treatments Start: 12/19/21 16:19 Freq: Status: Active Protocol: Document 02/18/22 16:01 NBM (Rec: 02/18/22 18:06 NBM [id number]) Cardio Equipment Bicycle (Upright) Duration (Minutes) 10 Resistance 7>10 Seat Position 7 Other Speed 81-89, Levl 10 last three min, gd pelvis aligm Therapeutic Exercises Standing Exercises squat Standing Exercise Name 1. mini squat 2. wall squats Equipment Used handrail Reps/Minutes x10 ea Comments cue for knee alignment over mid-toe; PPT at wall stepouts Standing Exercise Name 1. lateral stepouts 2. w/ paloff press Side bilateral Resistance Lvl 2 (two bands) Reps/Minutes 2x5 rep ea Comments cues for UT overactivation, slower pace, core. shld ext Standing Exercise Name HEP review Resistance Lvl 4 Reps/Minutes 10x2 Comments occasional cue with better scap depression stab con/ecc Scapular protraction Standing Exercise Name Scapular protraction Side bilateral Equipment Used Lev 4 Reps/Minutes 15x 2 Comments Cuing for scap depression ecc return, slow range Serratus wall slide Standing Exercise Name Forearms on wall, flexion to Y 's off wall Side bilateral Resistance Lev 3 Reps/Minutes 15x 2 Comments Cued for neutral CS, improved low trap fac w/o upper trap recruit Shoulder ER strengthening Standing Exercise Name Shoulder ER strengthening Side bilateral Resistance good TA Equipment Used Lev 4 TB Reps/Minutes 10x 2 Comments cue for scap depression, core Shoulder IR strengthening Standing Exercise Name Shoulder IR strengthening Side right Resistance good TA Equipment Used Lev 4 TB Reps/Minutes 10x 2 Comments cue for scap depression, core Self-Care/Home Management Treatment Education Patient Education Body Mechanics,Posture Other Education Explained body mechanics to perform work and protect low back (stay close to object, bend at knees not back, don't twist) . Pt demonstrated half- kneeling and short kneeling technique effectively and was encouraged not to bend over while standing to do work. Educated pt on shoulder anatomy for improving posture and possible management of R finger tingling. PT-OP-R Modalities Start: 12/19/21 16:19 Freq: Status: Active Protocol: Document 12/20/21 13:44 SAK (Rec: 12/20/21 15:37 SAK [id number]) Hot Pack/Cold Pack Treatment Cold Pack Location lumbar spine and SI Patient Position Hooklying Treatment Duration (minutes) 10 Patient Tolerance Good Comments strap around distal thighs for LE support in neutral position PT-OP-T Assessment and Plan Start: 12/19/21 16:19 Freq: Status: Active Protocol: Document 02/18/22 16:01 NBM (Rec: 02/18/22 18:06 NB [id number]) Physical Therapy Assessment Impairments Impairments Activity Tolerance,Strength Goals Four Impairment Quickdash UE disability index score 20% Longterm Goal (LTG) Improve Quickdash score to no greater than 5% as measure of improved UE function (01/18/22: Quickdash score of 4 .54) LTG Duration 03/23/22 (01/18/22: MET GOAL) Three Impairment lower extremity functional ( LEFS) scale 60% Township Clerk Goal (LTG) Improve LEFS score to at least 80% as measure of improved LE function. (01/28/22: LEFS score is 76) LTG Duration 03/23/22 (01/28/22: Progressing ) Two Impairment right shoulder dysfunction Impairment numbness and inability to use for prolonged period if sleeps on right side with pain as high as 7/10. Short Term Goal (STG) Patient to be able to modify his sleep patterns to not sleep on right side, and will be instructed in HEP for purposes of strengthening and stabilization. (01/11/22: Sometimes has numbness in R arm, but no pain ) STG Duration (01/18/22: MET GOAL) Township Clerk Goal (LTG) Patient to be independent with HEP for right shoulder strengthening and stabilization and report improved right shoulder function with minimal to no incidences of right shoulder pain and inability to use. 02/08/22: added shld ext, serratus press, wall slide to Ys off wall against resistance with no pain, improved scap depression stab. LTG Duration 03/23/22 (02/08/22 progressing) One Impairment pain lumbar spine left SI and hip as high as 7/10 Short Term Goal (STG) Decrease pain to no greater than 4/10 with 50% reduction in radicular symptoms (01/08/22: LBP/L SIJ varable onset of pain). (01/11/22: LBP/L SIJ pain 3-4/ 10 twice this past week) STG Duration 01/25/22 (01/11/22: MET GOAL) Longterm Goal (LTG) Patient to report pain no greater than 2/10 with all usual activities including standing and holding his grandkids and moving from sit to stand. (01/28/22: States he has 0/10 pain in the low back and 1x pain in the L hip since last session). LTG Duration 03/23/22 (01/28/22: Improving) Assessment Summary Assessment Pt presents w/out pain or symptoms today. Treatment focus on shoulder stabilization HEP review and progression. Pt requires moderate cues for scapular depression L>R w/ UE strengthening. Pt's self- awareness of neutral cervical spine and scapular depression improved w/ repetitions of Y at wall. 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 Pt tolerated session with no increase in symptoms. Physical Therapy Plan Frequency and Duration Frequency of Treatment 2x/Week Duration of Treatment 12 weeks Plan of Care Start Date 12/20/21 Plan of Care End Date 03/23/22 Therapeutic Interventions Therapeutic Interventions Aquatic Therapy,Gait Training, Home Exercise Program,Manual Therapy,Neuromuscular Re- education,Patient/Caregiver Education,Self-Care/Home Management,Soft Tissue Mobilization,Taping, Therapeutic Activities, Therapeutic Exercises Modalities Cold Pack/Ice Massage,Electric Stimulation,Hot Packs, Traction- Mechanical, Ultrasound Next Visit Focus/Plan Next Note Type Treatment Note Next Visit Plan 1-2x/week as pt able to be on schedule. Continue upright bike, monitor. Next tx: inquire numbness R leg/ R shld, R fingertips Pelvic stab w/realignment of L SIJ through self mob. Progress R shoulder stabilization ex. Strength for return to work
--- NOTE | 2022-02-25 12:44 | PT.OTN ---
Current Diagnoses Other chronic pain (02/25/22) Pain in right shoulder (02/25/22) Pain in right ankle and joints of right foot (02/25/22) Myalgia, other site (02/25/22) Physical Therapy Treatment Note PT-OP-A Visit Information Start: 12/19/21 16:19 Freq: Status: Active Protocol: Document 02/25/22 10:37 LRN (Rec: 02/25/22 11:20 LRN [id number]) Out-Patient Physical Therapy Visit Information Visit Information Visit Type Treatment Note Visit Start Time 10:37 Visit Stop Time 11:18 Total Visit Minutes 41 Visit Number Evaluation Information Evaluation Date 12/20/21 PT-OP-B Current Condition Start: 12/19/21 16:19 Freq: Status: Active Protocol: Document 12/20/21 13:44 SAK (Rec: 12/20/21 14:36 SAK [id number]) Current Condition History of Current Condition Onset Date 12 years ago shoulder Current Complaints right shoulder dysfunction, left hip pain History of Current Condition Thinks injured right shoulder while removing amina, jamming his shoulder. 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 If not doing anything really physical sometimes it feels and works fine. Patient is left handed. Was going to come for PT, then Covid happened. History of 3 ankle sprains with swelling right LE. 1 month ago reports onset of left hip pain, possibly due to compensation with his walking . Reports sharp, stabbing, and burning pain left hip/low back, feels like it is going to cut off his legs, almost causing him to fall. States he is heavier than he ever has been. Prior Treatments and Tests No x-ray or MRI yet Prior Functional Status Baseline Function- ADL's Independent Baseline Function- Mobility Independent Baseline Function- Gait no difficulty Baseline Function- Work/School no difficulty Current Functional Impairments (Reported) Functional Limitations- ADL's Hip pain interrupts sleep, pain with bending, lifting, walking, sharp stabbing pain with sit to stand, pain with standing and holding grandkids : fire down his thighs. 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 Had workout soreness. PT-OP-G Mobility & Gait Start: 12/19/21 16:19 Freq: Status: Active Protocol: Document 12/20/21 13:44 SAK (Rec: 12/23/21 08:55 SAK [id number]) OP Mobility Evaluation Transfers Sit to Stand painful Functional Movements Squats painful OP Gait Assessment Gait Gait Assistance Required: Independent Assistive Devices Assistive Device None Gait Deviations General Gait Pattern Wide Based Gait Factors Limiting Gait Function Factors Limiting Gait Function Decreased Strength,Pain Comments Gait Comments excess ER bilateral LE's left greater than right PT-OP-H Neuro Start: 12/19/21 16:19 Freq: Status: Active Protocol: Document 12/20/21 13:44 SAK (Rec: 12/23/21 08:55 SAK [id number]) Sensation Evaluation Gross Sensation Gross Sensation Right UE Impaired Sensation Description Paresthesia Comments Summary Comments Intact to LT bilateral UE's and LE's PT-OP-J Posture/Palpation/Skin Start: 12/19/21 16:19 Freq: Status: Active Protocol: Document 12/20/21 13:44 SAK (Rec: 12/23/21 08:55 SAK [id number]) Posture Evaluation Position Standing Head/C-Spine Posture Forward Head T-Spine Posture Increased Kyphosis L-Spine Posture Increased Lordosis Shoulder Posture (L) Rounded,(R) Rounded Scapula Posture (L) Protracted,(R) Protracted Arm Posture (L) Internally Rotated,(R) Internally Rotated Weight Distribution Weight Shifted Right Palpation Assessment Location left piriformis Palpation Findings Tenderness left greater trochanter Palpation Findings Tenderness left SI Palpation Findings Tenderness right shoulder Palpation Findings None/Normal PT-OP-K Range of Motion Start: 12/19/21 16:19 Freq: Status: Active Protocol: Document 01/18/22 09:49 LRN (Rec: 01/18/22 10:42 LRN [id number]) Ankle and Foot Goniometric Range of Motion Ankle and Foot Right Active Testing Position Supine Dorsiflexion with Knee Extended 10 Plantarflexion 48 Inversion 30 Eversion 15 Left Active Testing Position Supine Dorsiflexion with Knee Extended 10 Plantarflexion 48 Inversion 35 Eversion 20 PT-OP-M Strength Start: 12/19/21 16:19 Freq: Status: Active Protocol: Document 01/08/22 09:47 LRN (Rec: 01/08/22 10:33 LRN [id number]) Ankle/Foot Strength Ankle and Foot Manual Muscle Testing Right Dorsiflexion (L4) 4+ Good+ Plantarflexion (S1) 5 Normal Inversion 4+ Good+ Eversion (S1) 4+ Good+ Left Dorsiflexion (L4) 5 Normal Plantarflexion (S1) 5 Normal Inversion 5 Normal Eversion (S1) 5 Normal PT-OP-Q Treatments Start: 12/19/21 16:19 Freq: Status: Active Protocol: Document 02/25/22 10:37 LRN (Rec: 02/25/22 11:20 LRN [id number]) Cardio Equipment Bicycle (Upright) Duration (Minutes) 10 Resistance 7-8 Seat Position 5 Other Speed 901-93, Levl 10 last three min, gd pelvis aligm Gym Equipment Cable Column (Body Solid) Lat Pull Down Details Shoulder blades retract/ depress & abdomen tight to minimize. Resistance 30# Reps/Time 15x 2 Therapeutic Exercises Sitting Exercises shoulder IR Sitting Exercise Name Shoulder in 90 deg's AB for conc IR/ecc ER Side bilateral Equipment Used Pillow/Step stool handrail for elbow to rest on Reps/Minutes 15x Comments Extra time for positioning Shoulder ER Sitting Exercise Name Shoulder in 90 deg's AB for conc ER Side bilateral Resistance Lev 2 TB Equipment Used Pillow/Step stool handrail for elbow to rest on Reps/Minutes 15x Comments Extra time for positioning Standing Exercises squat Standing Exercise Name 1. mini squat 2. wall squats Equipment Used handrail Reps/Minutes x10 ea Comments cue for knee alignment over mid-toe; PPT at wall stepouts Standing Exercise Name 1. lateral stepouts 2. w/ paloff press Side bilateral Resistance Lvl 2 (two bands) Reps/Minutes 2x5 rep ea Comments cues for UT overactivation, slower pace, core. Self-Care/Home Management Treatment Education Patient Education Posture Other Education Pt education in proper head/ neck/shoulder posturing to reduce tingling in hands PT-OP-R Modalities Start: 12/19/21 16:19 Freq: Status: Active Protocol: Document 12/20/21 13:44 SAK (Rec: 12/20/21 15:37 SAK [id number]) Hot Pack/Cold Pack Treatment Cold Pack Location lumbar spine and SI Patient Position Hooklying Treatment Duration (minutes) 10 Patient Tolerance Good Comments strap around distal thighs for LE support in neutral position PT-OP-T Assessment and Plan Start: 12/19/21 16:19 Freq: Status: Active Protocol: Document 02/25/22 10:37 LRN (Rec: 02/25/22 11:20 LRN [id number]) Physical Therapy Assessment Goals Three Impairment lower extremity functional ( LEFS) scale 60% Halfway Goal (LTG) Improve LEFS score to at least 80% as measure of improved LE function. (01/28/22: LEFS score is 76) LTG Duration 03/23/22 (01/28/22: Progressing ) Two Impairment right shoulder dysfunction Impairment numbness and inability to use for prolonged period if sleeps on right side with pain as high as 7/10. Short Term Goal (STG) Patient to be able to modify his sleep patterns to not sleep on right side, and will be instructed in HEP for purposes of strengthening and stabilization. (01/11/22: Sometimes has numbness in R arm, but no pain ) STG Duration (01/18/22: MET GOAL) Halfway Goal (LTG) Patient to be independent with HEP for right shoulder strengthening and stabilization and report improved right shoulder function with minimal to no incidences of right shoulder pain and inability to use. 02/08/22: added shld ext, serratus press, wall slide to Ys off wall against resistance with no pain, improved scap depression stab. LTG Duration 03/23/22 (02/08/22 progressing) One Impairment pain lumbar spine left SI and hip as high as 7/10 Short Term Goal (STG) Decrease pain to no greater than 4/10 with 50% reduction in radicular symptoms (01/08/22: LBP/L SIJ varable onset of pain). (01/11/22: LBP/L SIJ pain 3-4/ 10 twice this past week) STG Duration 01/25/22 (01/11/22: MET GOAL) Halfway Goal (LTG) Patient to report pain no greater than 2/10 with all usual activities including standing and holding his grandkids and moving from sit to stand. (01/28/22: States he has 0/10 pain in the low back and 1x pain in the L hip since last session). LTG Duration 03/23/22 (01/28/22: Improving) Assessment Summary Assessment Fingertips of R hand goes numb when playing video games, Ex bike posturing was same; therefore cuing needed for proper posturing during exercise. Pt needing much cuing for scaupar stabilization during lat pull down. Physical Therapy Plan Frequency and Duration Frequency of Treatment 2x/Week Duration of Treatment 12 weeks Plan of Care Start Date 12/20/21 Plan of Care End Date 03/23/22 Next Visit Focus/Plan Next Note Type Treatment Note Next Visit Plan 1-2x/week as pt able to be on schedule. Continue upright bike & monitor: hands/ fingertips numbness with biking and james. Assess progress towards goals. Progress R shoulder stabilization ex. Strength for return to work - address lifting from ground and pt's body mechanics during lifting, Pelvic stab w/realignment of L SIJ through self mob as needed.
--- NOTE | 2022-03-01 16:52 | PT.OTN ---
Current Diagnoses Other chronic pain (03/01/22) Pain in right shoulder (03/01/22) Pain in right ankle and joints of right foot (03/01/22) Myalgia, other site (03/01/22) Physical Therapy Treatment Note PT-OP-A Visit Information Start: 12/19/21 16:19 Freq: Status: Active Protocol: Document 03/01/22 13:50 LRN (Rec: 03/01/22 14:33 LRN [id number]) Out-Patient Physical Therapy Visit Information Visit Information Visit Type Treatment Note Visit Start Time 13:50 Visit Stop Time 14:30 Total Visit Minutes 40 Visit Number Evaluation Information Evaluation Date 12/20/21 PT-OP-B Current Condition Start: 12/19/21 16:19 Freq: Status: Active Protocol: Document 12/20/21 13:44 SAK (Rec: 12/20/21 14:36 SAK [id number]) Current Condition History of Current Condition Onset Date 12 years ago shoulder Current Complaints right shoulder dysfunction, left hip pain History of Current Condition Thinks injured right shoulder while removing amina, jamming his shoulder. 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 If not doing anything really physical sometimes it feels and works fine. Patient is left handed. Was going to come for PT, then Covid happened. History of 3 ankle sprains with swelling right LE. 1 month ago reports onset of left hip pain, possibly due to compensation with his walking . Reports sharp, stabbing, and burning pain left hip/low back, feels like it is going to cut off his legs, almost causing him to fall. States he is heavier than he ever has been. Prior Treatments and Tests No x-ray or MRI yet Prior Functional Status Baseline Function- ADL's Independent Baseline Function- Mobility Independent Baseline Function- Gait no difficulty Baseline Function- Work/School no difficulty Current Functional Impairments (Reported) Functional Limitations- ADL's Hip pain interrupts sleep, pain with bending, lifting, walking, sharp stabbing pain with sit to stand, pain with standing and holding grandkids : fire down his thighs. If sleeps wrong on right UE can't use arm Functional Limitations- Mobility/Gait limps Functional Limitations- Recreation/ playing with grandkids painful Hobbies Personal Factors Other Personal Factors That May Effect obesity; patient is 7, 280 Therapy/Recovery lbs PT-OP-C Subjective Start: 12/19/21 16:19 Freq: Status: Active Protocol: Document 03/01/22 13:50 LRN (Rec: 03/01/22 14:33 LRN [id number]) OP-PT Subjective Patient Comments Patient Comments No complaints of back pain and had to stretch L hamstring because he started to feel something. Happy to know how to stop it. Using LEv 4 TBand for ex's now vs Lev 3. Reports is able to control hand numbness and tingling by correcting head position. PT-OP-G Mobility & Gait Start: 12/19/21 16:19 Freq: Status: Active Protocol: Document 12/20/21 13:44 SAK (Rec: 12/23/21 08:55 [facility] [id number]) OP Mobility Evaluation Transfers Sit to Stand painful Functional Movements Squats painful OP Gait Assessment Gait Gait Assistance Required: Independent Assistive Devices Assistive Device None Gait Deviations General Gait Pattern Wide Based Gait Factors Limiting Gait Function Factors Limiting Gait Function Decreased Strength,Pain Comments Gait Comments excess ER bilateral LE's left greater than right PT-OP-H Neuro Start: 12/19/21 16:19 Freq: Status: Active Protocol: Document 12/20/21 13:44 SAK (Rec: 12/23/21 08:55 [facility] [id number]) Sensation Evaluation Gross Sensation Gross Sensation Right UE Impaired Sensation Description Paresthesia Comments Summary Comments Intact to LT bilateral UE's and LE's PT-OP-J Posture/Palpation/Skin Start: 12/19/21 16:19 Freq: Status: Active Protocol: Document 12/20/21 13:44 SAK (Rec: 12/23/21 08:55 [facility] [id number]) Posture Evaluation Position Standing Head/C-Spine Posture Forward Head T-Spine Posture Increased Kyphosis L-Spine Posture Increased Lordosis Shoulder Posture (L) Rounded,(R) Rounded Scapula Posture (L) Protracted,(R) Protracted Arm Posture (L) Internally Rotated,(R) Internally Rotated Weight Distribution Weight Shifted Right Palpation Assessment Location left piriformis Palpation Findings Tenderness left greater trochanter Palpation Findings Tenderness left SI Palpation Findings Tenderness right shoulder Palpation Findings None/Normal PT-OP-K Range of Motion Start: 12/19/21 16:19 Freq: Status: Active Protocol: Document 01/18/22 09:49 LRN (Rec: 01/18/22 10:42 LRN [id number]) Ankle and Foot Goniometric Range of Motion Ankle and Foot Right Active Testing Position Supine Dorsiflexion with Knee Extended 10 Plantarflexion 48 Inversion 30 Eversion 15 Left Active Testing Position Supine Dorsiflexion with Knee Extended 10 Plantarflexion 48 Inversion 35 Eversion 20 PT-OP-M Strength Start: 12/19/21 16:19 Freq: Status: Active Protocol: Document 01/08/22 09:47 LRN (Rec: 01/08/22 10:33 LRN [id number]) Ankle/Foot Strength Ankle and Foot Manual Muscle Testing Right Dorsiflexion (L4) 4+ Good+ Plantarflexion (S1) 5 Normal Inversion 4+ Good+ Eversion (S1) 4+ Good+ Left Dorsiflexion (L4) 5 Normal Plantarflexion (S1) 5 Normal Inversion 5 Normal Eversion (S1) 5 Normal PT-OP-Q Treatments Start: 12/19/21 16:19 Freq: Status: Active Protocol: Document 03/01/22 13:50 LRN (Rec: 03/01/22 14:33 LRN [id number]) Cardio Equipment Bicycle (Upright) Duration (Minutes) 10 Resistance 7-8 Seat Position 5 Gym Equipment Cable Column (Body Solid) Lat Pull Down Details Shoulder blades retract/ depress & abdomen tight to minimize. Resistance 40# Reps/Time 15x 2 Therapeutic Exercises Supine Exercises KTC stretch Supine Exercise Name KTC stretch Side bilateral Reps/Minutes 30 H x 2 each Standing Exercises Lifting training Standing Exercise Name Lift training Reps/Minutes 11' General stretches Standing Exercise Name FB-trunk flex, Arms overhead- trunk ext, Trunk Blas Rot Reps/Minutes 1x each squat Standing Exercise Name Wall squats Equipment Used Gr. TBall Reps/Minutes 11' Comments Cuing for contact pt of back/ ball PT-OP-R Modalities Start: 12/19/21 16:19 Freq: Status: Active Protocol: Document 12/20/21 13:44 SAK (Rec: 12/20/21 15:37 SAK [id number]) Hot Pack/Cold Pack Treatment Cold Pack Location lumbar spine and SI Patient Position Hooklying Treatment Duration (minutes) 10 Patient Tolerance Good Comments strap around distal thighs for LE support in neutral position PT-OP-T Assessment and Plan Start: 12/19/21 16:19 Freq: Status: Active Protocol: Document 03/01/22 13:50 LRN (Rec: 03/01/22 14:33 LRN [id number]) Physical Therapy Assessment Goals Four Impairment Quickdash UE disability index score 20% Residential Goal (LTG) Improve Quickdash score to no greater than 5% as measure of improved UE function (01/18/22: Quickdash score of 4 .54) LTG Duration 03/23/22 (01/18/22: MET GOAL) Three Impairment lower extremity functional ( LEFS) scale 60% Balance Clerk Goal (LTG) Improve LEFS score to at least 80% as measure of improved LE function. (01/28/22: LEFS score is 76) LTG Duration 03/23/22 (01/28/22: Progressing ) Two Impairment right shoulder dysfunction Impairment numbness and inability to use for prolonged period if sleeps on right side with pain as high as 7/10. Short Term Goal (STG) Patient to be able to modify his sleep patterns to not sleep on right side, and will be instructed in HEP for purposes of strengthening and stabilization. (01/11/22: Sometimes has numbness in R arm, but no pain ) STG Duration (01/18/22: MET GOAL) Residential Goal (LTG) Patient to be independent with HEP for right shoulder strengthening and stabilization and report improved right shoulder function with minimal to no incidences of right shoulder pain and inability to use. 02/08/22: added shld ext, serratus press, wall slide to Ys off wall against resistance with no pain, improved scap depression stab. LTG Duration 03/23/22 (02/08/22 progressing) One Impairment pain lumbar spine left SI and hip as high as 7/10 Short Term Goal (STG) Decrease pain to no greater than 4/10 with 50% reduction in radicular symptoms (01/08/22: LBP/L SIJ varable onset of pain). (01/11/22: LBP/L SIJ pain 3-4/ 10 twice this past week) STG Duration 01/25/22 (7/1/22: MET GOAL) Residential Goal (LTG) Patient to report pain no greater than 2/10 with all usual activities including standing and holding his grandkids and moving from sit to stand. (01/28/22: States he has 0/10 pain in the low back and 1x pain in the L hip since last session). LTG Duration 03/23/22 (01/28/22: Improving) Assessment Summary Assessment Pt needed much training for proper squatting using TBall. He was 70% successful but was able to demonstrate improved squat mechanics without TBall after training. Pt has a difficult task with lifting a heavy board and was not able to define a totally safe method of lifting and carrying a metal sheet without the assist of a second person. Pt is aware that the safest method to carry a heavy board if returning to work would be to get help. Pt will need further training for picking up heavy objects to prepare for work, as well as core stabilization. Physical Therapy Plan Frequency and Duration Frequency of Treatment 2x/Week Duration of Treatment 12 weeks Plan of Care Start Date 12/20/21 Plan of Care End Date 03/23/22 Next Visit Focus/Plan Next Note Type Treatment Note Next Visit Plan 1-2x/week as pt able to be on schedule. Continue upright bike & monitor: hands/ fingertips numbness with biking and james. Assess progress towards goals. Progress R shoulder stabilization ex. Strength for return to work - address lifting from ground and pt's body mechanics during lifting, Pelvic stab w/realignment of L SIJ through self mob as needed.
--- NOTE | 2022-03-04 17:26 | PT.OTN ---
Current Diagnoses Other chronic pain (03/04/22) Pain in right shoulder (03/04/22) Pain in right ankle and joints of right foot (03/04/22) Myalgia, other site (03/04/22) Physical Therapy Treatment Note PT-OP-A Visit Information Start: 12/19/21 16:19 Freq: Status: Active Protocol: Document 03/04/22 13:40 LRN (Rec: 03/04/22 14:40 LRN [id number]) Out-Patient Physical Therapy Visit Information Visit Information Visit Type Treatment Note Visit Start Time 13:40 Visit Stop Time 14:28 Total Visit Minutes 48 Visit Number Evaluation Information Evaluation Date 12/20/21 PT-OP-B Current Condition Start: 12/19/21 16:19 Freq: Status: Active Protocol: Document 12/20/21 13:44 SAK (Rec: 12/20/21 14:36 SAK [id number]) Current Condition History of Current Condition Onset Date 12 years ago shoulder Current Complaints right shoulder dysfunction, left hip pain History of Current Condition Thinks injured right shoulder while removing amina, jamming his shoulder. 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 If not doing anything really physical sometimes it feels and works fine. Patient is left handed. Was going to come for PT, then Covid happened. History of 3 ankle sprains with swelling right LE. 1 month ago reports onset of left hip pain, possibly due to compensation with his walking . Reports sharp, stabbing, and burning pain left hip/low back, feels like it is going to cut off his legs, almost causing him to fall. States he is heavier than he ever has been. Prior Treatments and Tests No x-ray or MRI yet Prior Functional Status Baseline Function- ADL's Independent Baseline Function- Mobility Independent Baseline Function- Gait no difficulty Baseline Function- Work/School no difficulty Current Functional Impairments (Reported) Functional Limitations- ADL's Hip pain interrupts sleep, pain with bending, lifting, walking, sharp stabbing pain with sit to stand, pain with standing and holding grandkids : fire down his thighs. If sleeps wrong on right UE can't use arm Functional Limitations- Mobility/Gait limps Functional Limitations- Recreation/ playing with grandkids painful Hobbies Personal Factors Other Personal Factors That May Effect obesity; patient is 7, 280 Therapy/Recovery lbs PT-OP-C Subjective Start: 12/19/21 16:19 Freq: Status: Active Protocol: Document 03/04/22 13:40 LRN (Rec: 03/04/22 14:40 LRN [id number]) OP-PT Subjective Patient Comments Patient Comments States he was going to cancel because things are not going well at home. Nemesio is having health issues. No numbness and tingling in UE's with Ex bike. Patient Questionnaires Lower Extremity Functional Scale LEFS Score 71 LEFS Impairment 1 to 19% Impaired (Score 63-79 ) Quick Dash- Upper Extremity Quick Dash UE Score 2.27 Quick Dash UE Impairment 1 to 19% Impaired (Score 1-19) PT-OP-G Mobility & Gait Start: 12/19/21 16:19 Freq: Status: Active Protocol: Document 12/20/21 13:44 SAK (Rec: 12/23/21 08:55 [facility] [id number]) OP Mobility Evaluation Transfers Sit to Stand painful Functional Movements Squats painful OP Gait Assessment Gait Gait Assistance Required: Independent Assistive Devices Assistive Device None Gait Deviations General Gait Pattern Wide Based Gait Factors Limiting Gait Function Factors Limiting Gait Function Decreased Strength,Pain Comments Gait Comments excess ER bilateral LE's left greater than right PT-OP-H Neuro Start: 12/19/21 16:19 Freq: Status: Active Protocol: Document 12/20/21 13:44 SAK (Rec: 12/23/21 08:55 [facility] [id number]) Sensation Evaluation Gross Sensation Gross Sensation Right UE Impaired Sensation Description Paresthesia Comments Summary Comments Intact to LT bilateral UE's and LE's PT-OP-J Posture/Palpation/Skin Start: 12/19/21 16:19 Freq: Status: Active Protocol: Document 12/20/21 13:44 SAK (Rec: 12/23/21 08:55 [facility] [id number]) Posture Evaluation Position Standing Head/C-Spine Posture Forward Head T-Spine Posture Increased Kyphosis L-Spine Posture Increased Lordosis Shoulder Posture (L) Rounded,(R) Rounded Scapula Posture (L) Protracted,(R) Protracted Arm Posture (L) Internally Rotated,(R) Internally Rotated Weight Distribution Weight Shifted Right Palpation Assessment Location left piriformis Palpation Findings Tenderness left greater trochanter Palpation Findings Tenderness left SI Palpation Findings Tenderness right shoulder Palpation Findings None/Normal PT-OP-K Range of Motion Start: 12/19/21 16:19 Freq: Status: Active Protocol: Document 01/18/22 09:49 LRN (Rec: 01/18/22 10:42 LRN [id number]) Ankle and Foot Goniometric Range of Motion Ankle and Foot Right Active Testing Position Supine Dorsiflexion with Knee Extended 10 Plantarflexion 48 Inversion 30 Eversion 15 Left Active Testing Position Supine Dorsiflexion with Knee Extended 10 Plantarflexion 48 Inversion 35 Eversion 20 PT-OP-M Strength Start: 12/19/21 16:19 Freq: Status: Active Protocol: Document 01/08/22 09:47 LRN (Rec: 01/08/22 10:33 LRN [id number]) Ankle/Foot Strength Ankle and Foot Manual Muscle Testing Right Dorsiflexion (L4) 4+ Good+ Plantarflexion (S1) 5 Normal Inversion 4+ Good+ Eversion (S1) 4+ Good+ Left Dorsiflexion (L4) 5 Normal Plantarflexion (S1) 5 Normal Inversion 5 Normal Eversion (S1) 5 Normal PT-OP-Q Treatments Start: 12/19/21 16:19 Freq: Status: Active Protocol: Document 03/04/22 13:40 LRN (Rec: 03/04/22 14:40 LRN [id number]) Cardio Equipment Bicycle (Upright) Duration (Minutes) 11 Resistance 8 Seat Position 5 Gym Equipment Cable Column (Body Solid) Trunk Rot Details Blas Sitting Trunk Rot Resistance 20# Reps/Time 10x each, extra time to cover pt's skin tear of open skin on R hand. Golf swing Details Blas Golf Swing Resistance 20# Wood Chop Details Blas Wood Chop Resistance 20# Reps/Time 10x Lat Pull Down Details Shoulder blades retract/ depress & abdomen tight to minimize. Resistance 40# Reps/Time 15x 2 Therapeutic Exercises Standing Exercises squat Standing Exercise Name Squats Equipment Used Gr. TBall. & Indepedent Reps/Minutes 12' Comments Cuing for contact pt of back/ ball PT-OP-R Modalities Start: 12/19/21 16:19 Freq: Status: Active Protocol: Document 12/20/21 13:44 SAK (Rec: 12/20/21 15:37 [facility] [id number]) Hot Pack/Cold Pack Treatment Cold Pack Location lumbar spine and SI Patient Position Hooklying Treatment Duration (minutes) 10 Patient Tolerance Good Comments strap around distal thighs for LE support in neutral position PT-OP-T Assessment and Plan Start: 12/19/21 16:19 Freq: Status: Active Protocol: Document 03/04/22 13:40 LRN (Rec: 03/04/22 14:40 LRN [id number]) Physical Therapy Assessment Goals Four Impairment Quickdash UE disability index score 20% Fpc Goal (LTG) Improve Quickdash score to no greater than 5% as measure of improved UE function (01/18/22: Quickdash score of 4 .54) LTG Duration 03/23/22 (01/18/22: MET GOAL) Three Impairment lower extremity functional ( LEFS) scale 60% Parks And Recreation Worker Goal (LTG) Improve LEFS score to at least 80% as measure of improved LE function. (01/28/22: LEFS score is 76 = 1-19% impaired) (03/04/22: LEFS score is 71 = 1-19% impaired) LTG Duration 03/23/22 (03/04/22: MET GOAL) Two Impairment right shoulder dysfunction Impairment numbness and inability to use for prolonged period if sleeps on right side with pain as high as 7/10. Short Term Goal (STG) Patient to be able to modify his sleep patterns to not sleep on right side, and will be instructed in HEP for purposes of strengthening and stabilization. (01/11/22: Sometimes has numbness in R arm, but no pain ) STG Duration (01/18/22: MET GOAL) Fpc Goal (LTG) Patient to be independent with HEP for right shoulder strengthening and stabilization and report improved right shoulder function with minimal to no incidences of right shoulder pain and inability to use. 02/08/22: added shld ext, serratus press, wall slide to Ys off wall against resistance with no pain, improved scap depression stab. 03/04/22: States he has had no R shoulder pain or pain with use although noting he is L handed). LTG Duration 03/23/22 (03/04/22 MET GOAL) One Impairment pain lumbar spine left SI and hip as high as 7/10 Short Term Goal (STG) Decrease pain to no greater than 4/10 with 50% reduction in radicular symptoms (01/08/22: LBP/L SIJ varable onset of pain). (01/11/22: LBP/L SIJ pain 3-4/ 10 twice this past week) STG Duration 01/25/22 (01/11/22: MET GOAL) Parks And Recreation Worker Goal (LTG) Patient to report pain no greater than 2/10 with all usual activities including standing and holding his grandkids and moving from sit to stand. (01/28/22: States he has 0/10 pain in the low back and 1x pain in the L hip since last session). LTG Duration 03/23/22 (01/28/22: Improving) Progress Towards Goals Progress Comments LTG #2 & 3 MET. Assessment Summary Assessment Relief of anterior hip pain after manual lumbar and R LE traction; therefore anterior hip pain appears to L/S neural related.. Pt is no longer having R shoulder pain with use. Focus needs to be on core stabilization Physical Therapy Plan Frequency and Duration Frequency of Treatment 2x/Week Duration of Treatment 12 weeks Plan of Care Start Date 12/20/21 Plan of Care End Date 03/23/22 Next Visit Focus/Plan Next Note Type Treatment Note Next Visit Plan 1-2x/week as pt able to be on schedule. Continue upright bike & monitor: hands/ fingertips numbness with biking and james. Focus on core stab., Progress R shoulder stabilization ex. Strength for return to work - address lifting from ground and pt's body mechanics during lifting, Pelvic stab w/realignment of L SIJ through self mob as needed.
--- NOTE | 2022-03-07 12:06 | PT.OTN ---
Current Diagnoses Other chronic pain (03/07/22) Pain in right shoulder (03/07/22) Pain in right ankle and joints of right foot (03/07/22) Myalgia, other site (03/07/22) Physical Therapy Treatment Note PT-OP-A Visit Information Start: 12/19/21 16:19 Freq: Status: Active Protocol: Document 03/07/22 11:15 LRN (Rec: 03/07/22 12:05 LRN [id number]) Out-Patient Physical Therapy Visit Information Visit Information Visit Type Treatment Note Visit Start Time 11:16 Visit Stop Time 11:56 Total Visit Minutes 40 Visit Number Evaluation Information Evaluation Date 12/20/21 PT-OP-B Current Condition Start: 12/19/21 16:19 Freq: Status: Active Protocol: Document 12/20/21 13:44 SAK (Rec: 12/20/21 14:36 SAK [id number]) Current Condition History of Current Condition Onset Date 12 years ago shoulder Current Complaints right shoulder dysfunction, left hip pain History of Current Condition Thinks injured right shoulder while removing amina, jamming his shoulder. 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 If not doing anything really physical sometimes it feels and works fine. Patient is left handed. Was going to come for PT, then Covid happened. History of 3 ankle sprains with swelling right LE. 1 month ago reports onset of left hip pain, possibly due to compensation with his walking . Reports sharp, stabbing, and burning pain left hip/low back, feels like it is going to cut off his legs, almost causing him to fall. States he is heavier than he ever has been. Prior Treatments and Tests No x-ray or MRI yet Prior Functional Status Baseline Function- ADL's Independent Baseline Function- Mobility Independent Baseline Function- Gait no difficulty Baseline Function- Work/School no difficulty Current Functional Impairments (Reported) Functional Limitations- ADL's Hip pain interrupts sleep, pain with bending, lifting, walking, sharp stabbing pain with sit to stand, pain with standing and holding grandkids : fire down his thighs. If sleeps wrong on right UE can't use arm Functional Limitations- Mobility/Gait limps Functional Limitations- Recreation/ playing with grandkids painful Hobbies Personal Factors Other Personal Factors That May Effect obesity; patient is 7, 280 Therapy/Recovery lbs PT-OP-C Subjective Start: 12/19/21 16:19 Freq: Status: Active Protocol: Document 03/07/22 11:15 LRN (Rec: 03/07/22 12:05 LRN [id number]) OP-PT Subjective Patient Comments Patient Comments States the strange sensation in the R hip went away. Grandson is better. States sitting Israeli Style his R hip bothers him. States if he moves wrong he gets sudden pain, but in the R SI with collapse of R leg that slowly returns. PT-OP-G Mobility & Gait Start: 12/19/21 16:19 Freq: Status: Active Protocol: Document 12/20/21 13:44 SAK (Rec: 12/23/21 08:55 [facility] [id number]) OP Mobility Evaluation Transfers Sit to Stand painful Functional Movements Squats painful OP Gait Assessment Gait Gait Assistance Required: Independent Assistive Devices Assistive Device None Gait Deviations General Gait Pattern Wide Based Gait Factors Limiting Gait Function Factors Limiting Gait Function Decreased Strength,Pain Comments Gait Comments excess ER bilateral LE's left greater than right PT-OP-H Neuro Start: 12/19/21 16:19 Freq: Status: Active Protocol: Document 12/20/21 13:44 SAK (Rec: 12/23/21 08:55 [facility] [id number]) Sensation Evaluation Gross Sensation Gross Sensation Right UE Impaired Sensation Description Paresthesia Comments Summary Comments Intact to LT bilateral UE's and LE's PT-OP-J Posture/Palpation/Skin Start: 12/19/21 16:19 Freq: Status: Active Protocol: Document 12/20/21 13:44 SAK (Rec: 12/23/21 08:55 [facility] [id number]) Posture Evaluation Position Standing Head/C-Spine Posture Forward Head T-Spine Posture Increased Kyphosis L-Spine Posture Increased Lordosis Shoulder Posture (L) Rounded,(R) Rounded Scapula Posture (L) Protracted,(R) Protracted Arm Posture (L) Internally Rotated,(R) Internally Rotated Weight Distribution Weight Shifted Right Palpation Assessment Location left piriformis Palpation Findings Tenderness left greater trochanter Palpation Findings Tenderness left SI Palpation Findings Tenderness right shoulder Palpation Findings None/Normal PT-OP-K Range of Motion Start: 12/19/21 16:19 Freq: Status: Active Protocol: Document 03/07/22 11:15 LRN (Rec: 03/07/22 12:05 LRN [id number]) Hip Goniometric Range of Motion Hip Left Testing Position Supine Internal Rotation 10 External Rotation 60 Right Testing Position Supine Internal Rotation 10 External Rotation 35 PT-OP-M Strength Start: 12/19/21 16:19 Freq: Status: Active Protocol: Document 01/08/22 09:47 LRN (Rec: 01/08/22 10:33 LRN [id number]) Ankle/Foot Strength Ankle and Foot Manual Muscle Testing Right Dorsiflexion (L4) 4+ Good+ Plantarflexion (S1) 5 Normal Inversion 4+ Good+ Eversion (S1) 4+ Good+ Left Dorsiflexion (L4) 5 Normal Plantarflexion (S1) 5 Normal Inversion 5 Normal Eversion (S1) 5 Normal PT-OP-Q Treatments Start: 12/19/21 16:19 Freq: Status: Active Protocol: Document 03/07/22 11:15 LRN (Rec: 03/07/22 12:05 LRN [id number]) Cardio Equipment Bicycle (Upright) Duration (Minutes) 10 Resistance 9 Seat Position 5 Therapeutic Exercises Supine Exercises Iliopsoas stretch Supine Exercise Name Iliopsoas Stretch Side bilateral Reps/Minutes 3' Comments Time taken for set up and to determine max tolerated stretch. Lateral Hip stretch Supine Exercise Name Lateral Hip stretch Side bilateral Reps/Minutes 3' Comments Time taken for set up and to determine max tolerated stretch. Piriformis stretch Supine Exercise Name Piriformis stretch: Ankle over knee>knee to opp shoulder Side bilateral Reps/Minutes 4' Comments Time taken for set up and to determine max tolerated stretch. Fig 4 stretch Supine Exercise Name Fig 4 Side right Equipment Used Pillow under upper thigh for support during stretch Reps/Minutes 3' Comments Time taken for set up and to determine max tolerated stretch. Hip PROM Supine Exercise Name Hip ER/IR Side bilateral Reps/Minutes 6' Comments ROM taken KTC stretch Supine Exercise Name KTC stretch Side bilateral Reps/Minutes 30 H x 2 each Bridge Supine Exercise Name TA w/neutral spine (ns)/Bridge Side bilateral Reps/Minutes 15x BKFO Supine Exercise Name Blas Bent Knee Fall Out Stretch Side bilateral Reps/Minutes 30x Comments TrA focus. End range of R knee out pelvis rotates R ( weak pelvic L rot) Sidelying Exercises Clamshell Sidelying Exercise Name Clamshell Side bilateral Reps/Minutes 15 x 1 Comments Cuing to keep core tight and trunk straight Standing Exercises squat Standing Exercise Name Squats & squat with lift Equipment Used Gr. TBall., 10#, 20# Reps/Minutes 6' Comments Cuing for contact pt of back/ ball Self-Care/Home Management Treatment Activities Self-Care/Home Management Activities I/S pt in hip stretches (Fig 4 on R; and blas Piriformis, Lateral Hip stretch & Ilipsoas ). Handouts printed but not issued. PT-OP-R Modalities Start: 12/19/21 16:19 Freq: Status: Active Protocol: Document 12/20/21 13:44 SAK (Rec: 12/20/21 15:37 SAK [id number]) Hot Pack/Cold Pack Treatment Cold Pack Location lumbar spine and SI Patient Position Hooklying Treatment Duration (minutes) 10 Patient Tolerance Good Comments strap around distal thighs for LE support in neutral position PT-OP-T Assessment and Plan Start: 12/19/21 16:19 Freq: Status: Active Protocol: Document 03/07/22 11:15 LRN (Rec: 03/07/22 12:05 LRN [id number]) Physical Therapy Assessment Goals One Impairment pain lumbar spine left SI and hip as high as 7/10 Short Term Goal (STG) Decrease pain to no greater than 4/10 with 50% reduction in radicular symptoms (01/08/22: LBP/L SIJ varable onset of pain). (01/11/22: LBP/L SIJ pain 3-4/ 10 twice this past week) STG Duration 01/25/22 (01/11/22: MET GOAL) [facility] Goal (LTG) Patient to report pain no greater than 2/10 with all usual activities including standing and holding his grandkids and moving from sit to stand. (01/28/22: States he has 0/10 pain in the low back and 1x pain in the L hip since last session). LTG Duration 03/23/22 (01/28/22: Improving) Assessment Summary Assessment Pt shows decreased mobility of hips (R>L); therefore pt has difficulty with Israeli sitting and occasional discomfort in R hip. Pt demonstrates much improved body mechanics for squatting and lifting with no pain on lifting 20#. Pt much improved with function. Physical Therapy Plan Frequency and Duration Frequency of Treatment 2x/Week Duration of Treatment 12 weeks Plan of Care Start Date 12/20/21 Plan of Care End Date 03/23/22 Next Visit Focus/Plan Next Note Type Treatment Note Next Visit Plan DC in 2 visits to HEP. Issue/ review HEP HO's for hip stretches and core stab: clamshell ex. Review shoulder ex's and progress R shoulder stabilization ex. Upright bike & monitor: hands /fingertips numbness with biking and james. Self care core strengthening for return to work (lifting from ground with good body mechanics). Pelvic stab w/realignment of L SIJ through self mob as needed.
--- NOTE | 2022-03-11 10:09 | PT.OTN ---
Current Diagnoses Other chronic pain (03/11/22) Pain in right shoulder (03/11/22) Pain in right ankle and joints of right foot (03/11/22) Myalgia, other site (03/11/22) Physical Therapy Treatment Note PT-OP-A Visit Information Start: 12/19/21 16:19 Freq: Status: Active Protocol: Document 03/11/22 08:16 LRN (Rec: 03/11/22 09:02 LRN [id number]) Out-Patient Physical Therapy Visit Information Visit Information Visit Type Treatment Note Visit Start Time 08:16 Visit Stop Time 08:58 Total Visit Minutes 42 Visit Number Evaluation Information Evaluation Date 12/20/21 PT-OP-B Current Condition Start: 12/19/21 16:19 Freq: Status: Active Protocol: Document 12/20/21 13:44 SAK (Rec: 12/20/21 14:36 SAK [id number]) Current Condition History of Current Condition Onset Date 12 years ago shoulder Current Complaints right shoulder dysfunction, left hip pain History of Current Condition Thinks injured right shoulder while removing amina, jamming his shoulder. 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 If not doing anything really physical sometimes it feels and works fine. Patient is left handed. Was going to come for PT, then Covid happened. History of 3 ankle sprains with swelling right LE. 1 month ago reports onset of left hip pain, possibly due to compensation with his walking . Reports sharp, stabbing, and burning pain left hip/low back, feels like it is going to cut off his legs, almost causing him to fall. States he is heavier than he ever has been. Prior Treatments and Tests No x-ray or MRI yet Prior Functional Status Baseline Function- ADL's Independent Baseline Function- Mobility Independent Baseline Function- Gait no difficulty Baseline Function- Work/School no difficulty Current Functional Impairments (Reported) Functional Limitations- ADL's Hip pain interrupts sleep, pain with bending, lifting, walking, sharp stabbing pain with sit to stand, pain with standing and holding grandkids : fire down his thighs. If sleeps wrong on right UE can't use arm Functional Limitations- Mobility/Gait limps Functional Limitations- Recreation/ playing with grandkids painful Hobbies Personal Factors Other Personal Factors That May Effect obesity; patient is 7, 280 Therapy/Recovery lbs PT-OP-C Subjective Start: 12/19/21 16:19 Freq: Status: Active Protocol: Document 03/11/22 08:16 LRN (Rec: 03/11/22 09:02 LRN [id number]) OP-PT Subjective Patient Comments Patient Comments States he lost his ex bands. Held grandkids and played with them without back pain. Patient Questionnaires Lower Extremity Functional Scale LEFS Score 80 LEFS Impairment 0% Impaired (Score 80) PT-OP-G Mobility & Gait Start: 12/19/21 16:19 Freq: Status: Active Protocol: Document 12/20/21 13:44 SAK (Rec: 12/23/21 08:55 SAK [id number]) OP Mobility Evaluation Transfers Sit to Stand painful Functional Movements Squats painful OP Gait Assessment Gait Gait Assistance Required: Independent Assistive Devices Assistive Device None Gait Deviations General Gait Pattern Wide Based Gait Factors Limiting Gait Function Factors Limiting Gait Function Decreased Strength,Pain Comments Gait Comments excess ER bilateral LE's left greater than right PT-OP-H Neuro Start: 12/19/21 16:19 Freq: Status: Active Protocol: Document 12/20/21 13:44 SAK (Rec: 12/23/21 08:55 [facility] [id number]) Sensation Evaluation Gross Sensation Gross Sensation Right UE Impaired Sensation Description Paresthesia Comments Summary Comments Intact to LT bilateral UE's and LE's PT-OP-J Posture/Palpation/Skin Start: 12/19/21 16:19 Freq: Status: Active Protocol: Document 12/20/21 13:44 SAK (Rec: 12/23/21 08:55 [facility] [id number]) Posture Evaluation Position Standing Head/C-Spine Posture Forward Head T-Spine Posture Increased Kyphosis L-Spine Posture Increased Lordosis Shoulder Posture (L) Rounded,(R) Rounded Scapula Posture (L) Protracted,(R) Protracted Arm Posture (L) Internally Rotated,(R) Internally Rotated Weight Distribution Weight Shifted Right Palpation Assessment Location left piriformis Palpation Findings Tenderness left greater trochanter Palpation Findings Tenderness left SI Palpation Findings Tenderness right shoulder Palpation Findings None/Normal PT-OP-K Range of Motion Start: 12/19/21 16:19 Freq: Status: Active Protocol: Document 03/07/22 11:15 LRN (Rec: 03/07/22 12:05 LRN [id number]) Hip Goniometric Range of Motion Hip Left Testing Position Supine Internal Rotation 10 External Rotation 60 Right Testing Position Supine Internal Rotation 10 External Rotation 35 PT-OP-M Strength Start: 12/19/21 16:19 Freq: Status: Active Protocol: Document 01/08/22 09:47 LRN (Rec: 01/08/22 10:33 LRN [id number]) Ankle/Foot Strength Ankle and Foot Manual Muscle Testing Right Dorsiflexion (L4) 4+ Good+ Plantarflexion (S1) 5 Normal Inversion 4+ Good+ Eversion (S1) 4+ Good+ Left Dorsiflexion (L4) 5 Normal Plantarflexion (S1) 5 Normal Inversion 5 Normal Eversion (S1) 5 Normal PT-OP-Q Treatments Start: 12/19/21 16:19 Freq: Status: Active Protocol: Document 03/11/22 08:16 LRN (Rec: 03/11/22 09:02 LRN [id number]) Cardio Equipment Bicycle (Upright) Duration (Minutes) 10 Resistance 9 Seat Position 6 Therapeutic Exercises Supine Exercises Iliopsoas stretch Supine Exercise Name Iliopsoas Stretch Side bilateral Reps/Minutes 3' Comments Cuing for positioning and stretching for anterior hip/ thigh Lateral Hip stretch Supine Exercise Name Lateral Hip stretch Side bilateral Reps/Minutes 3' Piriformis stretch Supine Exercise Name Piriformis stretch: Ankle over knee>knee to opp shoulder Side bilateral Reps/Minutes 3' Fig 4 stretch Supine Exercise Name Fig 4 Side right Equipment Used Pillow under upper thigh for support during stretch Reps/Minutes 3' Comments Cuing to stretch L>R until equal symmetry KTC stretch Supine Exercise Name KTC stretch Side bilateral Reps/Minutes 30 H x 2 each Bridge Supine Exercise Name TA w/neutral spine (ns)/Bridge Side bilateral Reps/Minutes 15x 2 Sidelying Exercises Clamshell Sidelying Exercise Name Clamshell: Feet together and feet apart Side bilateral Reps/Minutes 15 x each Comments Cuing to keep core tight and trunk straight Standing Exercises squat Standing Exercise Name Squats & squat with lift Equipment Used Gr. TBall., 20#, 20# Reps/Minutes 6' Comments Cuing for contact pt of back/ ball shld ext Standing Exercise Name HEP review Resistance Lvl 4 Reps/Minutes 15x Comments cue for scap depression stab con/ecc Self-Care/Home Management Treatment Education Other Education Reviewed and discussed self care HEP. I/S pt in progressing resitance little at a time to avoid injury. Activities Self-Care/Home Management Activities Issued Lev 4, 5, and 6 TBands for pt's progressive HEP. PT-OP-R Modalities Start: 12/19/21 16:19 Freq: Status: Active Protocol: Document 12/20/21 13:44 SAK (Rec: 12/20/21 15:37 SAK [id number]) Hot Pack/Cold Pack Treatment Cold Pack Location lumbar spine and SI Patient Position Hooklying Treatment Duration (minutes) 10 Patient Tolerance Good Comments strap around distal thighs for LE support in neutral position PT-OP-T Assessment and Plan Start: 12/19/21 16:19 Freq: Status: Active Protocol: Document 03/11/22 08:16 LRN (Rec: 03/11/22 09:02 LRN [id number]) Physical Therapy Assessment Goals Four Impairment Quickdash UE disability index score 20% Alf Goal (LTG) Improve Quickdash score to no greater than 5% as measure of improved UE function (01/18/22: Quickdash score of 4 .54) LTG Duration 03/23/22 (01/18/22: MET GOAL) Three Impairment lower extremity functional ( LEFS) scale 60% [employer] Goal (LTG) Improve LEFS score to at least 80% as measure of improved LE function. (01/28/22: LEFS score is 76 = 1-19% impaired) (03/04/22: LEFS score is 71 = 1-19% impaired) LTG Duration 03/23/22 (03/04/22: MET GOAL) Two Impairment right shoulder dysfunction Impairment numbness and inability to use for prolonged period if sleeps on right side with pain as high as 7/10. Short Term Goal (STG) Patient to be able to modify his sleep patterns to not sleep on right side, and will be instructed in HEP for purposes of strengthening and stabilization. (01/11/22: Sometimes has numbness in R arm, but no pain ) STG Duration (01/18/22: MET GOAL) [employer] Goal (LTG) Patient to be independent with HEP for right shoulder strengthening and stabilization and report improved right shoulder function with minimal to no incidences of right shoulder pain and inability to use. 02/08/22: added shld ext, serratus press, wall slide to Ys off wall against resistance with no pain, improved scap depression stab. 03/04/22: States he has had no R shoulder pain or pain with use although noting he is L handed). LTG Duration 03/23/22 (03/04/22 MET GOAL) One Impairment pain lumbar spine left SI and hip as high as 7/10 Short Term Goal (STG) Decrease pain to no greater than 4/10 with 50% reduction in radicular symptoms (01/08/22: LBP/L SIJ varable onset of pain). (01/11/22: LBP/L SIJ pain 3-4/ 10 twice this past week) STG Duration 01/25/22 (01/11/22: MET GOAL) Alf Goal (LTG) Patient to report pain no greater than 2/10 with all usual activities including standing and holding his grandkids and moving from sit to stand. (01/28/22: States he has 0/10 pain in the low back and 1x pain in the L hip since last session). LTG Duration 03/23/22 (03/11/22: MET GOAL ) Progress Towards Goals Progress Comments MET last goal: LTG #1. Assessment Summary Assessment Pt appears to have good understanding of his HEP. Pt shows good understanding of proper squat lift with training, using gluteal and quads more than back. Pt is ready for DC to his independent HEP. Physical Therapy Plan Discharge Physical Therapy Discharge Reasons Goals Met Discharge Comments Pt has not returned to work; therefore if he suffers a reinjury on return to work, a work hardening program would be appropriate for him. Thank you for your referral.
== END 2022-03-12 13:24 ==
LOC: PHYS 08:15
PROVIDERS: Family Provider Family Medicine; PCP Family Medicine; Referring Provider Family Medicine; Visit Provider Family Medicine
DX: M25.511 Pain in right shoulder (principal); M79.18 Myalgia, other site; M25.571 Pain in right ankle and joints of right foot; G89.29 Other chronic pain
CPT/HCPCS: 97110; 97162; 97535

== ENCOUNTER → 2022-07-16 14:20 | Outpatient (CLI) | payer OTHER, MEDICAID, SELFPAY ==
[2022-07-16 15:46] LABS: Influenza A - CEPHEID Flu A NEGATIVE (NEGATIVE); Influenza B - CEPHEID Flu B NEGATIVE (NEGATIVE); Respiratory Syncytial Virus Negative (Negative)
[2022-07-16 15:50] LABS: COVID-19 CEPHEID 4-PLEX PCR Negative (Negative)
== END ==
PROVIDERS: Family Provider Family Medicine; PCP Family Medicine; Visit Provider Family Medicine
DX: J02.9 Acute pharyngitis, unspecified (principal)
CPT/HCPCS: 0241U